=== PATIENT | female | born 1945 | race Caucasian/White ===

== ENCOUNTER → 2016-11-28 | Outpatient (CLI) | payer MEDICARE, BC ==
[2016-11-28 12:20] LABS: Basophils # (A) 0.2 k/uL (0-0.2); Basophils % (A) 2 %; CH 31.7; CHCM 32.8; Eosinophils # (A) 0.2 k/uL (0-0.7); Eosinophils % (A) 3 %; HCT 48.5 % (34.0-46.0); HDW 2.26; HGB 16.1 gm/dL (11.4-16.0); Luc # (Auto) 0.15; Luc % (Auto) 2; Lymphocytes # (A) 2.5 k/uL (1.0-4.8); Lymphocytes % (A) 30 %; MCH 32.3 pg (25.0-35.0); MCHC 33.3 g/dL (31.0-37.0); MCV 97.1 fL (80.0-100.0); Mean Platelet Volume 7.3; Monocytes # (A) 0.5 k/uL (0-1.0); Monocytes % (A) 6 %; Neutrophils # (A) 4.9 k/uL (1.3-7.7); Neutrophils % (A) 58 %; RDW 13.4 % (11.5-15.5); WBC 8.4 k/uL (3.8-10.6); WBC (Perox) 8.02
[2016-11-28 13:27] LABS: Erythrocyte Sedimentation Rate 4 mm/hr (0-20)
[2016-11-28 14:28] LABS: ALT 32 U/L (9-52); AST 28 U/L (14-36); Alkaline Phosphatase 72 U/L (38-126); Anion Gap 12 mmol/L; Blood Urea Nitrogen 18 mg/dL (7-17); Calcium 10.4 mg/dL (8.4-10.2); Carbon Dioxide 29 mmol/L (22-30); Chloride 101 mmol/L (98-107); Creatine Kinase <20 U/L (30-135); Glucose 101 mg/dL (74-99); Non-African American GFR(MDRD) >60 (>60 ml/min/1.73 sqM); Sodium 142 mmol/L (137-145); Total Bilirubin 0.7 mg/dL (0.2-1.3); Total Protein 7.3 g/dL (6.3-8.2)
[2016-11-28 15:26] LABS: Vitamin B12 >1000 pg/mL
[2016-11-30 05:27] LABS: Aldolase 3.2 U/L (1.2-7.6)
== END | disposition home or self-care (01) ==
LOC: LABWHC1 12:00
PROVIDERS: ATTEND Internal Medicine
DX: M60.9 Myositis, unspecified (principal); M62.81 Muscle weakness (generalized)
CPT/HCPCS: 36415; 80053; 82085; 82550; 82607; 83516; 84439; 84443; 85025; 85652; 86038; 99213

== ENCOUNTER → 2018-05-11 | Outpatient (CLI) | payer MEDICARE, BC ==
--- NOTE | 2018-05-12 21:31 | MR ---
EXAMINATION TYPE: MR lumbar spine wo con DATE OF EXAM: 05/11/2018 COMPARISON: Prior MRI lumbar spine February 23, 2010. Outside lumbar spine x-ray April 15, 2018 HISTORY: Low back pain per order. Left-sided pain since November going into left buttocks per patient. TECHNIQUE: Multiplanar, multisequence imaging of the lumbar spine is performed without IV contrast. FINDINGS: Survey images redemonstrate levoconvex scoliosis centered at L4 level. Sagittal images of t he lumbar spine show vertebral body heights to remain satisfactory. There is more prominent grade 1 a nterolisthesis L4 on L5 measured roughly 5 mm on sagittal image 7. Multilevel disc desiccation is red emonstrated. There is persistent advanced disc space narrowing L5-S1 level. There is now advanced dis c space narrowing L4-L5 level progressed from prior. There is moderate disc space narrowing L3-L4 lev el with vacuum disc phenomenon also progressed from prior there is new prominent disc herniation effa cing anterior thecal sac at T12-L1 level on sagittal image 8. The conus medullaris is slightly low i n position ending superior L2 level. No abnormal signal is present. Heterogeneous endplate changes ar e seen. Pneumothorax type I degenerative changes T12-L1 level are present. Axial images at the labeled T12-L1 level which shows left paracentral disc extrusion seen best sagitt al image 9 effacing anterolateral thecal sac on background of moderate broad disc bulge. Advanced lef t-sided neural foraminal narrowing is seen sagittal image 5 and axial image 28 due to additional fora joao protrusion component. Right-sided neural foramen is patent. Axial images at the L1-L2 and the L2-L3 levels show [id number] facet degenerative changes bilat erally but the spinal canal is preserved and the bilateral neuroforamina are patent. Axial images at the L3-L4 level shows moderate facet degenerative changes and ligament flavum hypertr ophy effacing posterior lateral thecal sac. There is moderate broad-based disc bulge effacing the ant erior thecal sac. There is moderate right greater than left bilateral neural foraminal narrowing. Fin dings are more prominent from prior MRI. Axial images at the L4-L5 level show advanced facet degenerative changes and ligament flavum hypertro phy. There is spondylolisthesis and broad disc bulge causing effacement of the anterior and posterior lateral thecal sac on axial image 8. There is advanced right and [id number] left-sided neural foraminal narrowing with encroachment on right L4 nerve suspected axial image 8. Axial images at the L5-S1 level shows advanced facet degenerative changes bilaterally. There is broad disc bulge identified. Spinal canal is fairly well preserved. Bilateral neural foramina are grossly patent. There is ectasia to the abdominal aorta measuring up to 2.9 cm diameter axial image 12 new from prior . IMPRESSION: Multilevel degenerative changes in lumbar spine as detailed above with progression from 2 010 MRI noted. Attention to T12-L1 level where there is new disc herniation causing advanced left-dioni ed neural foraminal narrowing and effacement of the left T12 nerve. Attention to L4-L5 level where th ere is no spondylolisthesis and increasing degenerative change causing advanced right-sided neural fo raminal narrowing. Further details are noted as discussed above. New near 3.0 cm to the infrarenal ab dominal aorta.
== END | disposition home or self-care (01) ==
LOC: RADMRIMAIN 13:00
PROVIDERS: ATTEND Orthopaedic Surgery
DX: M48.07 Spinal stenosis, lumbosacral region (principal); M99.73 Connective tissue and disc stenosis of intervertebral foramina of lumbar region; M99.72 Connective tissue and disc stenosis of intervertebral foramina of thoracic region; M51.25 Other intervertebral disc displacement, thoracolumbar region; M51.27 Other intervertebral disc displacement, lumbosacral region; M43.16 Spondylolisthesis, lumbar region; M47.817 Spondylosis without myelopathy or radiculopathy, lumbosacral region; M41.86 Other forms of scoliosis, lumbar region
CPT/HCPCS: 72148

== ENCOUNTER → 2018-06-20 | Outpatient (CLI) | payer MEDICARE, BC ==
[2018-06-14 14:20] VITALS: BMI 32.8
[2018-06-20 13:40] VITALS: BP 116/80; PULSE 98; RESP 16
--- NOTE | 2018-06-20 18:30 | P.PAINCN ---
History of Present Illness - Reason for Consult Consult date: 06/20/18 - History of Present Illness This is the initial consultation visit, for this 72 years old female, she start complaining of severe low back pain with radiation towards the left hip area, since 12/06/2017, she reported that the pain started after she was sitting for several hours, then that day she started having this pain, the pain is constant. , Intensity 8-9/10, she denies any motor or sensory deficit, she denies any fever or night sweats she denies any change in the bowel movement or urination Past Medical History Past Medical History: Atrial Fibrillation, COPD, Deep Vein Thrombosis (DVT), GERD/Reflux, Osteoarthritis (OA) Additional Past Medical History / Comment(s): hx- diverticulitis,sciaticae lt History of Any Multi-Drug Resistant Organisms: None Reported Past Surgical History: Bladder Surgery, Bowel Resection, Cardiac Ablation, Heart Catheterization With Stent, Hysterectomy Additional Past Surgical History / Comment(s): bladder suspension, lt knee x2 arthroscopic Past Anesthesia/Blood Transfusion Reactions: No Reported Reaction Date of Last Stent Placement:: 2010 Past Psychological History: Anxiety, Depression Smoking Status: Current every day smoker Past Alcohol Use History: Daily Additional Past Alcohol Use History / Comment(s): smoker off and on since age 11 attempting to quit 5cig/day-current chantix Past Drug Use History: None Reported - Past Family History Mother Family Medical History: No Reported History Sister(s) Family Medical History: Cancer Additional Family Medical History / Comment(s): rectal cancer Medications and Allergies Home Medications Medication Instructions Recorded Confirmed Type Albuterol Inhaler [Ventolin Hfa 1 - 2 puff INHALATION RT-Q6H PRN 06/14/18 History Inhaler] Albuterol Nebulized [Ventolin 2.5 mg INHALATION Q6H 06/14/18 06/14/18 History Nebulized] Ascorbic Acid [Vitamin C] 2,000 mg PO DAILY 06/14/18 06/14/18 History Aspirin [Adult Low Dose Aspirin EC] 81 mg PO DAILY 06/14/18 06/14/18 History Calcium Carbonate/Vitamin D3 1 each PO DAILY 06/14/18 06/14/18 History [Calcium 600-Vit D3 200 Tablet] Cyanocobalamin (Vitamin B-12) 5,000 mcg PO DAILY 06/14/18 06/14/18 History [Vitamin B12] DULoxetine HCL [Cymbalta] 30 mg PO DAILY 06/14/18 06/14/18 History Esomeprazole Magnesium [NexIUM] 20 mg PO DAILY 06/14/18 06/14/18 History LORazepam [Ativan] 0.5 mg PO Q6H PRN 06/14/18 06/14/18 History Methocarbamol [Robaxin] 1,000 mg PO QID 06/14/18 06/14/18 History Metoprolol Tartrate [Lopressor] 25 mg PO BID 06/14/18 06/14/18 History Colby-3 Fatty Acids [Colby-3] 4,000 mg PO DAILY 06/14/18 06/14/18 History Potassium Chloride [K-Tab ER] 20 meq PO DAILY 06/14/18 06/14/18 History Torsemide [Demadex] 20 mg PO DAILY 06/14/18 06/14/18 History Vitamin E (Dl,Tocopheryl Acet) 2 tab PO DAILY 06/14/18 06/14/18 History [Vitamin E] guaiFENesin [Mucinex] 2 tab PO DAILY 06/20/18 06/20/18 History Allergies Allergy/AdvReac Type Severity Reaction Status Date / Time No Known Allergies Allergy Verified 06/20/18 13:22 Physical Exam Vitals: Vital Signs Pulse Resp BP Pulse Ox 06/20/18 13:24 98 16 116/80 93 L Social history : smoker , NO ETOH , NO Illegal drugs use . Review of Systems : 1- Constitutional : no chills , no fever , no night sweats , 2- Ears : no ear discharge , no change in hearing 3-Nose, Mouth ,Throat ; no bleeding gums, no sore throat , no epistaxis , 4-Cardiovascular : Denies chest pain, , no orthopnea , no palpitation 5-Respiratory : Denies cough , no dyspnea , no hemoptysis 6-Gastrointestinal :, no change in bowel habits , no coffee- ground emesis . 7-Genitourinary : No hematuria , no discharge , no incontinence, 8-Musculoskeletal : + gait dysfunction , report low back pain , 9- Neurological : no ataxia , no tremor , no sezure , 10-Psychatric , no suicidal ideation no hallucination 11- Endocrine : no cold intolerence , no polyuria , no polydypsia , 12-Hematologic : no easy bleeding , no easy brusing , 13-Allergic / immunology : no angioedema , no wheezing ,no allergic rhinitis 14-Integumentary : no brttle nails , no change hair / nails , no foot/leg ulcers . Physical Examinations : 1-Constitutional : Cooperative , not in acute distress . 2-HEENT : nech ; supple , no Lymphadenopathy , no Thyromegaly , :eyes , no icterus, no photophobia . ENT : , normal oropharynx , no Thrush 3- Respiratory : Chest clear to auscultations Bilaterally , no wheezing 4- Cardiovascular : regular rate and rhythem , S1 , S2 , no S3 , no S4. 5- Gastrointestinal: abdomen soft no tenderness , no organomegally . 6- Genitourinary : Defferred . 7-Integumentary : No cellulitis , no ulcers , normal skin turgor , no cyanotic . 8- neurologic : Cranial nerve II to XII intact , no focal neurological deffecit 9-psychatric : alert , oriented X 3 , appropriate affect , intact judgment and insight . 10-Lymphatic : no Lymphadenopathy. 11- musculoskeltal: abnormal gait Lumber spine moter stegnth lower extremities ,thigh and legs 5/5 Right side , 5/5 Left side deep tendon reflexes : normal Knee Jerk , normal ankle Jerk lumber facet Loading Test negative on the right side and its slightly positive on the left side Range of motion of the lumbar spine normal. strait leg raising test , negative bilaterally Fabere test negative bilaterally. Sever tenderness over the iliac crest on the left side Results Comments: MRI of the lumbar spine= extensive multilevel lumbar degenerative disc disease and multilevel lumbar facet arthropathy Assessment and Plan Plan: Assessment and plan= 1-left cluneal nerve neuralgia. 2-lumbar degenerative disc disease ,and lumbar facet arthropathy. Clinical examination support that most of the pain is coming from the left cluneal nerve neuralgia, patient will be scheduled to have left cluneal nerve block under fluoroscopy guidance, procedure risk and benefits and alternatives discussed with the patient, Time with Patient: Greater than 30 PQRS Measure Charge Sheet Measure #130: Documentation of Current Meds in Medical Chart: Patient's medications documented in chart Measure #226: Tobacco Use: Screen & Cessation Intervention: Pt screened for tobacco use AND intervention given Measure #111: Pneumonia Vaccination: Pneumococcal vaccine administered or previously received Measure #47: Advance Care Plan: Advance care planning discussed & documented, pt chose/unable to give Measure #412: Opioid Treatment Agreement: No documentation of signed opioid treatment agreement Measure #408: Opioid Therapy Follow-up Evaluation: Patient had NO f/u eval minimum every 3 months during opioid therapy Measure #317: Preventitive Care & Scrn High Bld Press & F/U: Normal blood pressure, f/u not required Measure #128: Body Mass Index (BMI) Screening & Follow-up: BMI documented ABOVE normal parameters - f/u documented Measure #131: Pain Assessment & Follow-up: Pain positive & plan documented, Follow-up scheduled Measure #431: Unhealthy Alcohol Use Preventative Care & Scrn: Patient not identified as an unhealthy alcohol user PQRS Narrative: Smoking Status Current every day smoker Do You Want the Pneumonia Vaccine Up to Date Vaccine AT THIS TIME? Blood Pressure 116/80 Pain Intensity [Left Lower 9 Back] Scale Used Numeric (1 - 10) Hx Alcohol Use (MH) Yes: 5-7 week Home Medications: Ambulatory Orders Albuterol Inhaler [Ventolin Hfa Inhaler] 1 - 2 puff INHALATION RT-Q6H PRN Albuterol Nebulized [Ventolin Nebulized] 2.5 mg INHALATION Q6H 06/14/18 Ascorbic Acid [Vitamin C] 2,000 mg PO DAILY 06/14/18 Aspirin [Adult Low Dose Aspirin EC] 81 mg PO DAILY 06/14/18 Calcium Carbonate/Vitamin D3 [Calcium 600-Vit D3 200 Tablet] 1 each PO DAILY Cyanocobalamin (Vitamin B-12) [Vitamin B12] 5,000 mcg PO DAILY 06/14/18 DULoxetine HCL [Cymbalta] 30 mg PO DAILY 06/14/18 Esomeprazole Magnesium [NexIUM] 20 mg PO DAILY 06/14/18 LORazepam [Ativan] 0.5 mg PO Q6H PRN 06/14/18 Methocarbamol [Robaxin] 1,000 mg PO QID 06/14/18 Metoprolol Tartrate [Lopressor] 25 mg PO BID 06/14/18 Colby-3 Fatty Acids [Colby-3] 4,000 mg PO DAILY 06/14/18 Potassium Chloride [K-Tab ER] 20 meq PO DAILY 06/14/18 Torsemide [Demadex] 20 mg PO DAILY 06/14/18 Vitamin E (Dl,Tocopheryl Acet) [Vitamin E] 2 tab PO DAILY 06/14/18 guaiFENesin [Mucinex] 2 tab PO DAILY 06/20/18
== END | disposition home or self-care (01) ==
LOC: PNWHC3 11:51
PROVIDERS: ATTEND Specialist
DX: M51.36 Other intervertebral disc degeneration, lumbar region (principal); M46.86 Other specified inflammatory spondylopathies, lumbar region; G57.82 Other specified mononeuropathies of left lower limb; I48.91 Unspecified atrial fibrillation; J44.9 Chronic obstructive pulmonary disease, unspecified; I82.409 Acute embolism and thrombosis of unspecified deep veins of unspecified lower extremity; K21.9 Gastro-esophageal reflux disease without esophagitis; M19.90 Unspecified osteoarthritis, unspecified site; F41.9 Anxiety disorder, unspecified; F32.9 Major depressive disorder, single episode, unspecified; F17.200 Nicotine dependence, unspecified, uncomplicated; Z95.5 Presence of coronary angioplasty implant and graft; Z90.710 Acquired absence of both cervix and uterus; Z98.890 Other specified postprocedural states; Z79.51 Long term (current) use of inhaled steroids; Z79.82 Long term (current) use of aspirin; Z79.899 Other long term (current) drug therapy; Z71.6 Tobacco abuse counseling
CPT/HCPCS: 99211

== ENCOUNTER 2018-07-04 06:49 | Day surgery (SDC) | payer MEDICARE, BC ==
[2018-07-02 10:35] VITALS: BMI 32.8
[~2018-07-04 06:49] MED LIST: LACTATED RINGERS 1,000 ML IV SCH
[2018-07-04 07:44] VITALS: TEMP 97.5
[2018-07-04] MEDS ORDERED: LIDOCAINE 1% 20 ML VIAL (10MG/ML) FOR IV START INTRADERMA ONE (08:00)
--- NOTE | 2018-07-04 09:01 | P.PCN ---
Date of Procedure: 07/04/18 Procedure(s) Performed: Procedure= left. Cluneal nerve steroid injection under fluoroscopy guidance Preoperative diagnosis= 1-left cluneal nerve neuralgia. 2-lumbar degenerative disc disease. 3-lumbar spondylosis Postoperative diagnosis= same as preoperative diagnoses . Complication = none Condition= stable Fluoroscopy time = seconds Anesthesia= moderate sedation with intravenous Versed 1 mg , and fentanyl 50 micrograms . Indication for the procedure= patient complaining of low back pain secondary to left cluneal nerve neuralgia and lumbar spondylosis and lumbar degenerative disc disease , and she is here to have left cluneal nerve block Description of the procedure= procedure risk and benefits discussed with the patient, including but not limited, risk of infection and bleeding, and ALLERGIC reaction to the medication and not complete pain relief and patient agreed with the preceding patient taken to the operating room, placed in prone position or standard monitors applied to the patient then after induction of anesthesia back prepped with chlorhexidine 3 times , Then under strict sterile technique, I did the left cluneal nerve block by placing a 22-gauge Quincke Needle advanced slowly under fluoroscopy and placed at the lateral edge of the iliac crest, at the location of the left cluneal nerve, needle placement confirmed with AP and lateral view, then after appropriate needle placement confirmed , then Ropivacaine 0.5% 8 mL, and 40 mg of Kenalog mixed together and injected after negative aspiration patient tolerated the procedure well without any complications , and she will follow up in clinic 3 weeks
[2018-07-04] MEDS ORDERED: IV FLUID CONTINUATION 1,000 ML IV ONE (09:13)
[2018-07-04 09:16] VITALS: RESP 18
--- NOTE | 2018-07-04 09:18 | FL ---
EXAMINATION TYPE: FL guided pain mgmt statistic DATE OF EXAM: 07/04/2018 CLINICAL HISTORY: Back pain TECHNIQUE: Fluoroscopy. COMPARISON: None. FINDINGS/IMPRESSION: Fluoroscopic guidance was provided during procedure performed by Dr. Schneider. A total of 8 seconds of fluoroscopic time was utilized during the procedure and 2 spot images was ac quired demonstrating localization over the iliac bone.
[2018-07-04 09:34] VITALS: BP 115/78; PULSE 78
== END 2018-07-04 09:43 | disposition home or self-care (01) ==
LOC: ORPAIN 06:49
PROVIDERS: ATTEND Specialist
DX: G58.8 Other specified mononeuropathies (principal); M51.36 Other intervertebral disc degeneration, lumbar region; M47.816 Spondylosis without myelopathy or radiculopathy, lumbar region; I48.91 Unspecified atrial fibrillation; J44.9 Chronic obstructive pulmonary disease, unspecified; K21.9 Gastro-esophageal reflux disease without esophagitis; M19.90 Unspecified osteoarthritis, unspecified site; Z86.718 Personal history of other venous thrombosis and embolism; Z95.5 Presence of coronary angioplasty implant and graft; F32.9 Major depressive disorder, single episode, unspecified; F41.9 Anxiety disorder, unspecified; F17.210 Nicotine dependence, cigarettes, uncomplicated; Z79.82 Long term (current) use of aspirin; Z79.899 Other long term (current) drug therapy
CPT/HCPCS: 64450; J2250; J1030; J3010

== ENCOUNTER → 2018-07-18 | Day surgery (SDC) | payer MEDICARE, BC ==
[2018-07-12 09:09] VITALS: BMI 32.8
[~2018-07-18] MED LIST changes: -LACTATED RINGERS 1,000 ML IV SCH; +SODIUM CHLORIDE 0.9% 500 ML 500 ML IV SCH
[2018-07-18 08:30] VITALS: TEMP 97.8
--- NOTE | 2018-07-18 09:34 | P.PCN ---
Date of Procedure: 07/18/18 Surgeon: Christian Alves Pathology: none sent Condition: stable Disposition: PACU Description of Procedure: Procedure= left. Cluneal nerve steroid injection under fluoroscopy guidance Preoperative diagnosis= 1-left cluneal nerve neuralgia. 2-lumbar degenerative disc disease. 3-lumbar spondylosis Postoperative diagnosis= same as preoperative diagnoses . Complication = none Condition= stable Fluoroscopy time = seconds Anesthesia= moderate sedation with intravenous Versed 1 mg , and fentanyl 50 micrograms . Indication for the procedure= patient complaining of low back pain secondary to left cluneal nerve neuralgia and lumbar spondylosis and lumbar degenerative disc disease , and she is here to have left cluneal nerve block Description of the procedure= procedure risk and benefits discussed with the patient, including but not limited, risk of infection and bleeding, and ALLERGIC reaction to the medication and not complete pain relief and patient agreed with the preceding patient taken to the operating room, placed in prone position or standard monitors applied to the patient then after induction of anesthesia back prepped with chlorhexidine , Then under strict sterile technique, I did the left cluneal nerve block by placing a 22-gauge Quincke Needle advanced slowly under fluoroscopy and placed at the lateral edge of the iliac crest, at the location of the left cluneal nerves, needle placement confirmed with AP and lateral view, then after appropriate needle placement confirmed , then Ropivacaine 0.5% 8 mL, and 40 mg of Kenalog mixed together and injected after negative aspiration patient tolerated the procedure well without any complications .
[2018-07-18 09:47] VITALS: RESP 16
[2018-07-18 10:00] VITALS: BP 130/81; PULSE 83
--- NOTE | 2018-07-18 12:19 | FL ---
EXAMINATION TYPE: FL guided pain mgmt statistic DATE OF EXAM: 07/18/2018 HISTORY: Pain DR. JUAREZ SUPERVISED USE OF JAI FOR A LT CLUNEAL NERVE BLOCK 4 SECS FLUORO AND 2 PAPER IMAGES
== END ==
LOC: ORPAIN 07:39
PROVIDERS: ATTEND Anesthesiology
DX: G58.8 Other specified mononeuropathies (principal); M51.36 Other intervertebral disc degeneration, lumbar region; M47.816 Spondylosis without myelopathy or radiculopathy, lumbar region; I48.91 Unspecified atrial fibrillation; J44.9 Chronic obstructive pulmonary disease, unspecified
CPT/HCPCS: 64450; J2250; J3301; J3010

== ENCOUNTER → 2018-08-07 | Outpatient (CLI) | payer MEDICARE, BC ==
[2018-08-07 15:01] VITALS: BP 129/79; PULSE 81; RESP 16
--- NOTE | 2018-08-08 19:59 | P.PN ---
Subjective Progress Note Date: 08/07/18 This is a follow-up visit for this 72 years old female, she start complaining of severe low back pain with radiation toward the left buttock, and she is diagnosed with left cluneal nerve neuralgia, we did today 2 diagnostic Cluneal nerve block, she reported that the pain after the first block and decreased from 9/10 dropped to 0/10 after the first block, and the pain dropped from 5/10- 0/10 after the second diagnostic block , and the pain relief was for a few weeks Physical examination - musculoskeltal: abnormal gait Lumber spine moter stegnth lower extremities ,thigh and legs 5/5 Right side , 5/5 Left side deep tendon reflexes : normal Knee Jerk , normal ankle Jerk lumber facet Loading Test negative on the right side and its slightly positive on the left side Range of motion of the lumbar spine normal. strait leg raising test , negative bilaterally Fabere test negative bilaterally. Sever tenderness over the iliac crest on the left side Results Comments: MRI of the lumbar spine= extensive multilevel lumbar degenerative disc disease and multilevel lumbar facet arthropathy Assessment and Plan Plan: Assessment and plan= 1-left cluneal nerve neuralgia. 2-lumbar degenerative disc disease ,and lumbar facet arthropathy. Clinical examination support that most of the pain is coming from the left cluneal nerve neuralgia, patient had positive response to left cluneal nerve block , she will be good candidate to have radiofrequency ablation of the left cluneal nerve, Procedure risk and benefit and alternatives discussed with the patient she agreed with the preceding - PQRS measures = - Patient's medications are documented in the chart. -Tobacco use is negative and counseling.Given. -Patient's has received pneumococcal vaccine. -Advanced care planning discussed, patient not eligible. -Opiate contract not signed., Patient does not receive any opioid from [facility] pain clinic -Pain positive and follow-up visit/procedure is scheduled. -Patient's blood pressure measured [129/79 ] , and documented in the record ,and patient will follow up with the primary care. -Patient's weight was measured and body mass index [ 32.7] above the, within the normal limits and counseling was done. and patient instructed to follow-up with the primary care physician. -Patient was not identified as an unhealthy alcohol user Objective - Vital Signs Vital signs: Vital Signs Temp Pulse 81 08/07/18 14:52 Resp 16 08/07/18 14:52 BP 129/79 08/07/18 14:52 Pulse Ox 94 L 08/07/18 14:52
== END | disposition home or self-care (01) ==
LOC: PNWHC3 14:00
PROVIDERS: ATTEND Specialist
DX: M51.36 Other intervertebral disc degeneration, lumbar region (principal); M46.86 Other specified inflammatory spondylopathies, lumbar region; G58.8 Other specified mononeuropathies
CPT/HCPCS: 99211

== ENCOUNTER 2018-08-26 07:09 | Day surgery (SDC) | payer MEDICARE, BC ==
[2018-08-21 15:40] VITALS: BMI 32.8
[2018-08-26 07:41] VITALS: RESP 18; TEMP 97.3
[2018-08-26] MEDS ORDERED: LACTATED RINGERS 1,000 ML IV ONE (07:55)
--- NOTE | 2018-08-26 08:44 | P.PCN ---
Date of Procedure: 08/26/18 Preoperative Diagnosis: Cluneal neuropathy Postoperative Diagnosis: same Procedure(s) Performed: Left Cluneal nerve RFA Anesthesia: MAC Surgeon: Shoaib Rocha Description of Procedure: PREOPERATIVE DIAGNOSIS: Cluneal nerve neuropathy POSTOPERATIVE DIAGNOSIS: Same PROCEDURE 1. Left cluneal nerve radiofrequency ablation ANESTHESIA: Conscious sedation with 1 mg of Versed and 50 g of fentanyl EBL: Minimal PROCEDURE INDICATION: The patient with low back pain on the left side with excellent relief after cluneal nerve injections x 2. . PROCEDURE DESCRIPTION / TECHNIQUE: Patient was placed in the prone position. The left flank was cleaned with Betadine 3. Proper sterile techniques were used. Left iliac crest was identified under fluoroscopic guidance. 1% lidocaine was used to infiltrate the subcutaneous tissue and the skin total of 10 mL were used. 3 20-gauge 100 mm radiofrequency needles were placed and identified on fluoroscopy to be touching the superior iliac crest. After anesthetizing the iliac crest with 1% lidocaine 5 mL's attempts were advanced and walked off the bone and placed to be right beyond the tip of the iliac crest. After confirmation of negative aspiration and confirming that the tips were infected along the bone. 1 mL of 0.5% bupivacaine were placed at each level. After negative motor testing was done at 2.5 Hz removed on to lesioning. At that point we began to lesion the area at 80C for 90 seconds. The needles were turned 90 and the lesion was repeated. Second lesion was performed along the medial border of the iliac crest. the same specifications for the lesion were performed to the medial border of the iliac crest. COMPLICATIONS: None DISPOSITION / PLANS: The patient was placed in a supine position and transferred to the recovery area in a stable condition for observation. There was no evidence of lower extremity motor or sensory deficit after the procedure. Patient was discharged from the recovery room after meeting discharge criteria. Home discharge instructions were given to the patient by the staff. The patient was reexamined prior to discharge. The patient will schedule a follow up in the clinic in 2-4 weeks.
--- NOTE | 2018-08-26 08:58 | FL ---
EXAMINATION TYPE: FL guided pain mgmt statistic DATE OF EXAM: 08/26/2018 HISTORY: Flouroscopy time 6 seconds of fluoroscopy provided. IMPRESSION: 1. Fluoroscopy time.
[2018-08-26] MEDS ORDERED: IV FLUID CONTINUATION 550 ML IV ONE (09:00)
[2018-08-26 09:09] VITALS: BP 127/72; PULSE 78
== END 2018-08-26 09:35 | disposition home or self-care (01) ==
LOC: ORPAIN 07:09
PROVIDERS: ATTEND Hospitalist
DX: G62.9 Polyneuropathy, unspecified (principal)
CPT/HCPCS: 64640; J2250; J2001; J3010; 99152

== ENCOUNTER 2018-08-29 10:27 | Day surgery (SDC) | payer MEDICARE, BC ==
[2018-08-21 15:57] VITALS: BMI 32.8
[~2018-08-29 10:27] MED LIST changes: +ALPRAZolam 0.25 MG TAB PO PRN; +ASPIRIN 325 MG TAB PO ONE; +ATORVASTATIN 80 MG TAB PO STA; +SODIUM CHLORIDE 0.9% 1,000 ML in EMPTY BAG 1 BAG IV ONE; -SODIUM CHLORIDE 0.9% 500 ML 500 ML IV SCH
[2018-08-29 10:56] VITALS: TEMP 97.6
[2018-08-29] MEDS ORDERED: MIDAZOLAM 2 MG/2 ML VIAL ONE (12:27)
[2018-08-29] MEDS ORDERED: LIDOCAINE 1% INJ 10MG/ML (20 ML MDV) ONE (12:27)
[2018-08-29] MEDS ORDERED: VERAPAMIL 2.5 MG/ML 2 ML AMP ONE (12:27)
[2018-08-29] MEDS ORDERED: HEPARIN SODIUM 1,000 UN/ML (10ML VL) ONE (12:28)
[2018-08-29] MEDS ORDERED: fentaNYL (PF) 50 MCG/ML 2 ML AMP ONE (12:28)
[2018-08-29] MEDS ORDERED: fentaNYL (PF) 50 MCG/ML 2 ML AMP IVP ONE (12:30)
[2018-08-29] MEDS: MIDAZOLAM 2 MG/2 ML VIAL IVP ONE ×2 (12:30→12:41)
[2018-08-29] MEDS ORDERED: LIDOCAINE 1% (PF) 10MG/ML VIAL SQ ONE (12:31)
[2018-08-29] MEDS: VERAPAMIL SYRINGE (5 MG/10 ML) INTRAARTER ONE ×2 (12:35→12:43)
[2018-08-29] MEDS ORDERED: HEPARIN SODIUM 1,000 UN/ML (10ML VL) IV ONE (12:36)
[2018-08-29] MEDS ORDERED: IOPAMIDOL-370 125ML BTL INJ ONE (12:43)
[2018-08-29] MEDS ORDERED: RX INFO: IV CONTRAST WAS GIVEN 1 EACH MISC MISCELLANE PRN (12:51)
[2018-08-29] MEDS ORDERED: SODIUM CHLORIDE 0.9% 1,000 ML IV SCH (13:00)
--- NOTE | 2018-08-29 13:22 | LTR ---
August 29, 2018 Re: Amada Brady Dear Shoaib: Ms. 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 I want to thank you for allowing me to participate in her care and please do not hesitate to call if you have any question or concern. Sincerely, MD STEVEN Gonzalez / ALIVIA: [phone] /
--- NOTE | 2018-08-29 14:14 | CC ---
CARDIAC CATHETERIZATION REPORT DATE OF SERVICE: 08/29/2018. PERFORMING PHYSICIAN: Jesus Manuel Cook MD. PROCEDURE PERFORMED: 1. Selective right and left coronary angiogram. 2. Left heart catheterization. INDICATION: This is a pleasant 72-year-old female patient with known history of coronary artery disease and prior stenting of the right coronary artery in 2010, as well as hypertension and dyslipidemia presented to the hospital was experiencing exertional dyspnea concerning for angina. She underwent a myocardial perfusion imaging stress test and that revealed anterior ischemia. Because of that, heart catheterization was advised. APPROACH: Right radial artery. COMPLICATION: None. LEVEL OF SEDATION: Moderate with sedation length of 19 minutes. PROCEDURE DESCRIPTION: After obtaining an informed consent, the patient was brought to the cardiac laborer yard. The right radial artery was cannulated using micropuncture technique and a micropuncture wire passed easily, then I placed a 5-Czech in the right radial artery. After that, I gave the patient 2 mg of verapamil IA and 8000 units of heparin IV. Selective right and left coronary angiogram performed using JR4 and JL3.5 catheters. Left heart catheterization was performed using 5-Czech pigtail catheter. The procedure was completed without any complication. SELECTIVE CORONARY ANGIOGRAM: 1. The right coronary artery is a large caliber vessel. It is a dominant vessel. The proximal RCA is angiographically normal. The mid RCA is stented and the stent is patent. The RCA distally appeared to be normal and bifurcates into PDA and PLV branches both are angiographically normal. 2. The left main is angiographically normal. It bifurcates into the circumflex and left anterior descending artery. 3. The left circumflex is a large caliber vessel. It is a nondominant vessel with the proximal circumflex is normal and gives rise into a large OM branch which bifurcates into two separate branches. The first OM branch is angiographically normal. The circumflex continued after that as a small-caliber vessel in the AV groove. 4. The LAD: The proximal LAD appeared to be angiographically normal. It gives rise into a large diagonal branch which appears to be angiographically normal. The mid LAD appeared to have mild disease only and the LAD distally appeared to be angiographically normal and becomes a small caliber vessel and reached the apex. HEMODYNAMICS: The left ventricular end-diastolic pressure was about 12 mmHg and no gradient was identified across the aortic valve. CONCLUSION: 1. Patent stent in the mid right coronary artery. 2. Mild disease involving the left coronary system. POSTPROCEDURE MANAGEMENT: 1. Medical treatment. 2. Risk factor modifications. 3. Follow up with the patient. STEVEN / ALIVIA: [id number] /
[2018-08-29 14:17] VITALS: RESP 18
[2018-08-29 14:46] VITALS: BP 125/67; PULSE 85
== END 2018-08-29 17:52 | disposition home or self-care (01) ==
LOC: CATHCVL 10:27
PROVIDERS: ATTEND Internal Medicine Interventional Cardiology
DX: I25.110 Atherosclerotic heart disease of native coronary artery with unstable angina pectoris (principal); I10 Essential (primary) hypertension; J44.9 Chronic obstructive pulmonary disease, unspecified; E78.5 Hyperlipidemia, unspecified; E78.00 Pure hypercholesterolemia, unspecified; Z79.82 Long term (current) use of aspirin; Z79.899 Other long term (current) drug therapy; Z82.49 Family history of ischemic heart disease and other diseases of the circulatory system; Z95.5 Presence of coronary angioplasty implant and graft; Z72.0 Tobacco use
CPT/HCPCS: 93458; C1769 ×2; C1894; J2250; J3010; J1644; J2001; Q9967

== ENCOUNTER → 2018-10-10 | Outpatient (CLI) | payer MEDICARE, BC ==
[2018-10-10 12:52] VITALS: BP 121/73; PULSE 79; RESP 16
--- NOTE | 2018-10-10 13:50 | P.PN ---
Subjective Progress Note Date: 10/10/18 This is the initial consultation visit, for this 72 years old female, she start complaining of severe low back pain with radiation towards the left hip area,, she day) left cluneal neuralgia , and lumbar degenerative disc disease and lumbar spondylosis with lumbar facet arthropathy , previously we have done a left cluneal nerve block which was successful later on was followed with radiofrequency ablation of the left cluneal nerve , patient had some improvement in her pain level but she continued to have severe left side low back pain that radiated towards the left left hip area and iliac crest ,denies any motor or sensory deficit, she denies any fever or night sweats she denies any change in the bowel movement or urination Physical Examinations : 1-Constitutional : Cooperative , not in acute distress . 2-HEENT : nech ; supple , no Lymphadenopathy , no Thyromegaly , :eyes , no icterus, no photophobia . ENT : , normal oropharynx , no Thrush 3- Respiratory : Chest clear to auscultations Bilaterally , no wheezing 4- Cardiovascular : regular rate and rhythem , S1 , S2 , no S3 , no S4. 5- Gastrointestinal: abdomen soft no tenderness , no organomegally . 6- Genitourinary : Defferred . 7-Integumentary : No cellulitis , no ulcers , normal skin turgor , no cyanotic . 8- neurologic : Cranial nerve II to XII intact , no focal neurological deffecit 9-psychatric : alert , oriented X 3 , appropriate affect , intact judgment and insight . 10-Lymphatic : no Lymphadenopathy. 11- musculoskeltal: abnormal gait Lumber spine moter stegnth lower extremities ,thigh and legs 5/5 Right side , 5/5 Left side deep tendon reflexes : normal Knee Jerk , normal ankle Jerk lumber facet Loading Test negative on the right side and positive on the left side Range of motion of the lumbar spine normal. strait leg raising test , negative bilaterally Fabere test negative bilaterally. Sever tenderness over the iliac crest on the left side Results Comments: MRI of the lumbar spine= extensive multilevel lumbar degenerative disc disease and multilevel lumbar facet arthropathy Assessment and Plan Plan: Assessment and plan= 1-left cluneal nerve neuralgia. 2-lumbar degenerative disc disease ,and lumbar facet arthropathy. Patient improved after the left side cluneal nerve radiofrequency but she continued to have left-sided low back pain with radiation to the left hip , patient will be good candidate to have left side medial branch block lumbar area at L3-4 /L4 5/L5-S1 x2 , and if she had a good result, then we will proceed with a radiofrequency ablation of the left side medial branch PQRS Measure Charge Sheet Measure #130: Documentation of Current Meds in Medical Chart: Patient's medications documented in chart Measure #226: Tobacco Use: Screen & Cessation Intervention: Pt screened for tobacco use AND intervention given Measure #111: Pneumonia Vaccination: Pneumococcal vaccine administered or previously received Measure #47: Advance Care Plan: Advance care planning discussed & documented, pt chose/unable to give Measure #412: Opioid Treatment Agreement: No documentation of signed opioid treatment agreement Measure #408: Opioid Therapy Follow-up Evaluation: Patient had NO f/u eval minimum every 3 months during opioid therapy Measure #317: Preventitive Care & Scrn High Bld Press & F/U: Normal blood pressure, f/u not required Measure #128: Body Mass Index (BMI) Screening & Follow-up: BMI documented ABOVE normal parameters - f/u documented Measure #131: Pain Assessment & Follow-up: Pain positive & plan documented, Follow-up scheduled Measure #431: Unhealthy Alcohol Use Preventative Care & Scrn: Patient not identified as an unhealthy alcohol user PQRS Narrative: Objective - Vital Signs Vital signs: Vital Signs Temp Pulse 79 10/10/18 12:40 Resp 16 10/10/18 12:40 BP 121/73 10/10/18 12:40 Pulse Ox 95 10/10/18 12:40 Intake & Output 10/09/18 10/10/18 10/10/18 18:59 06:59 18:59 Weight 78.925 kg
== END ==
LOC: PNWHC3 12:22
PROVIDERS: ATTEND Specialist
DX: G58.8 Other specified mononeuropathies (principal); M51.36 Other intervertebral disc degeneration, lumbar region; M46.96 Unspecified inflammatory spondylopathy, lumbar region
CPT/HCPCS: 99211

== ENCOUNTER 2018-10-29 08:49 | Day surgery (SDC) | payer MEDICARE, BC ==
[2018-10-25 11:49] VITALS: BMI 32.8
[~2018-10-29 08:49] MED LIST changes: -ALPRAZolam 0.25 MG TAB PO PRN; -ASPIRIN 325 MG TAB PO ONE; -ATORVASTATIN 80 MG TAB PO STA; -SODIUM CHLORIDE 0.9% 1,000 ML in EMPTY BAG 1 BAG IV ONE; +SODIUM CHLORIDE 0.9% 500 ML 500 ML IV SCH
[2018-10-29 09:15] VITALS: RESP 16; TEMP 97.6
[2018-10-29] MEDS ORDERED: LACTATED RINGERS 1,000 ML IV ONE (09:24)
[2018-10-29] MEDS ORDERED: LIDOCAINE 1% 20 ML VIAL (10MG/ML) FOR IV START INTRADERMA ONE (09:25)
--- NOTE | 2018-10-29 10:08 | P.PCN ---
Date of Procedure: 10/29/18 Procedure(s) Performed: PREOPERATIVE DIAGNOSIS : 1- Lumbar spondylosis with Facet Arthropathy without myelopathy . 2- Lumber degenerative disc disease POSTOPERATIVE DIAGNOSIS: 1- Lumbar spondylosis with Facet Arthropathy without myelopathy . 2- Lumber degenerative disc disease PROCEDURE: Diagnostic Left L3 -4 , L4 -5 , and L5-S1 medial branch block under fluoroscopy ANESTHESIA: Local with Ropivacain 0.5 % 3 ml , moderate sedation with intravenous Versed 2 mg and Fentanyl 50 mcg. EBL: Minimal COMPLICATION: None. IV FLUIDS: 100 mL of normal saline. PROCEDURE INDICATION: Chronic low back pain secondary to Facet arthropathy unresponsive to conservative treatment. PROCEDURE DESCRIPTION: the patient was seen and identified in the preop holding area , risks and benefits and possible complications of the procedure and alternative were discussed with the patient, and the patient agreed to proceed with the procedure and signed the consent IV was started and vital signs monitored during the procedure and fluoroscopy was used to maximize the benefit and accuracy of the needle placement, and sedation was given to decrease patient anxiety, patient was taken to the procedure room and placed in prone position vital signs monitored in the back prepped with chlorhexidine X3 then under strict sterile technique using a right oblique fluoroscopy ,the junction of the transverse process and the superior articulating process of the left L3- 4 , L4- 5, and L5-S1 vertebra which corresponding to the fluoroscopy image of the eye of the Jeremias dog on the block side for the medial branches and subsequently , after local infiltration of skin and subcu tissuies with Ropivacaine 0.5 % , one mL at each level , then 22-gauge Quincke-type needles , 3 needle was used , each one of them placed at the junction of the base of the transverse process and the superior articular process at the appropriate level, and the needle was advanced until the periosteum contacted, needle placement confirmed with AP oblique and lateral view and after appropriate needle placement confirmed, and after negative aspiration for heme and CSF and there was no paresthesia 1-1/2 mL of Ropivacaine 0.5% mixed with 40 mg depo-medrol , then half mL injected at each level after negative aspiration the needle subsequently removed intact. At the end of the procedure and the needles removed and a bandage applied after the skin was cleaned the cleaning solution patient taken to recovery room in stable condition and monitors in the recovery room for 20-30 minutes and discharged home in stable condition after discharge criteria met and patient will follow up with the pain clinic in 2-4 weeks
[2018-10-29] MEDS ORDERED: IV FLUID CONTINUATION 800 ML IV ONE (10:13)
--- NOTE | 2018-10-29 10:28 | FL ---
EXAMINATION TYPE: FL guided pain mgmt statistic DATE OF EXAM: 10/29/2018 HISTORY: Pain 8sec fluoro time,2 images scanned
[2018-10-29 10:32] VITALS: BP 138/71; PULSE 81
== END 2018-10-29 11:04 | disposition home or self-care (01) ==
LOC: ORPAIN 08:49
PROVIDERS: ATTEND Specialist
DX: G89.29 Other chronic pain (principal); M47.816 Spondylosis without myelopathy or radiculopathy, lumbar region; M51.36 Other intervertebral disc degeneration, lumbar region
CPT/HCPCS: 64493; 64494; 64495; J2250; J1030; J3010

== ENCOUNTER 2018-11-12 09:21 | Day surgery (SDC) | payer MEDICARE, BC ==
[2018-11-08 14:37] VITALS: BMI 33.8
[2018-11-12 09:37] VITALS: TEMP 97.8
--- NOTE | 2018-11-12 09:45 | P.PCN ---
Date of Procedure: 11/12/18 Anesthesia: none Description of Procedure: Surgeon: Shoaib Rocha MD. Procedure: Left lumbar Medial Branch Block at L3/4, L4/5, and L5/S1 The patient was seen and examined in the [facility]. Procedure risks and benefits were fully reviewed with the patient. The patient understands this is a diagnostic if local only is used, as will be the case today. The goal of the procedure is to inject medication into the medial branch or small nerves that go into the facet joints. In this way, we can hopefully identify which of these joints, if any, may be contributing to their pain. Informed consent for procedure was obtained. The patient was taken into the office fluoroscopy procedure room and placed prone on the table. A pillow was placed under the abdomen to reduce lumbar lordosis. Vital signs were closely monitored during the procedure. The skin over the area was prepped with Betadine X 3 and draped in usual sterile manner. Sterile technique was observed throughout procedure. Under biplanar fluoroscopic guidance, the target injection area of the L3, L4, L5 and sacral ala, left were targeted. A 25 gauge 31/2 inch spinal needle was then placed at the most medial and superior aspect of the transverse process near the "eye of the Jeremias dog". Aspiration for blood was negative. 1 cc of 0.5% marcaine was injected into the targeted areas separately. [place] were withdrawn intact. No complications were noted during the procedure. The patient tolerated the procedure well. The patient was placed in supine position and transferred to the recovery area for observation and remained stable until discharged home. Home discharge instructions were given to the patient by the staff. We'll move forward with lumbar radiofrequency ablation if she has good response to the test injections..
--- NOTE | 2018-11-12 10:13 | FL ---
EXAMINATION TYPE: FL guided pain mgmt statistic DATE OF EXAM: 11/12/2018 FLUOROSCOPY Fluoroscopy time of 10 seconds was used during left facet block. No image/s document/s the procedure .
[2018-11-12 10:21] VITALS: BP 128/72; PULSE 80; RESP 16
== END 2018-11-12 10:21 | disposition home or self-care (01) ==
LOC: ORPAIN 09:21
PROVIDERS: ATTEND Hospitalist
DX: G58.8 Other specified mononeuropathies (principal); M51.36 Other intervertebral disc degeneration, lumbar region; M47.816 Spondylosis without myelopathy or radiculopathy, lumbar region
CPT/HCPCS: 64493; 64494; 64495; 64635; 64636

== ENCOUNTER → 2018-12-31 | Day surgery (SDC) | payer MEDICARE, BC ==
[~2018-12-31] MED LIST changes: +IV FLUID CONTINUATION 1,000 ML IV ONE; +LACTATED RINGERS 1,000 ML IV SCH; -SODIUM CHLORIDE 0.9% 500 ML 500 ML IV SCH
[2018-12-31 09:31] VITALS: TEMP 97.3
[2018-12-31 09:41] LABS: Glucose,Whole Blood 105 mg/dL (75-99)
--- NOTE | 2018-12-31 10:14 | P.PCN ---
Date of Procedure: 12/31/18 Procedure(s) Performed: PREOPERATIVE DIAGNOSIS: 1-Lumbar Spondylosis with Facet Arthropathy without myelopathy. 2- Lumber degenerative disc disease. POSTOPERATIVE DIAGNOSIS: 1- Lumbar Spondylosis with Facet Arthropathy without myelopathy. 2- Lumber degenerative disc disease. PROCEDURES : Left Radiofrequency thermocoagulation, L3-L4, L4-L5, and L5-S1 medial branch, with fluoroscopic guidance. ANESTHESIA: Moderate sedation with intravenous versed 1 mg and fentaneyl 50 mcg, and local infiltration with Ropivacaine 0.5 % . EBL: Minimal PROCEDURE INDICATION: The patient with low back pain secondary to lumbar facet arthropathy who had more than 50% relief of her pain with previous diagnostic lumbar medial branch block with bupivacaine. PROCEDURE DESCRIPTION / TECHNIQUE: The patient was seen and identified in the preoperative area. Risks, benefits, complications, including but not limited to risk of infection ,bleeding , allergic reactions to the medications and no complete pain releife , and alternatives were discussed with the patient, the patient agreed to proceed with the procedure and signed the consent. IV was started. Vital signs remained stable throughout the procedure. Patient was taken to the OR and time out was completed. The patient was placed i n the prone position on the procedure table. The lumber area was prepped and draped in the usual sterile fashion. . Vital signs were closely monitored during the procedure .IV sedation was used during the procedure to decrease patients anxiety. Using AP and then oblique fluoroscopy, the ``eye of the Jeremias dog corresponding to the connection between the superior and transverse articular processes of left L3, L4, and L5 were identified, marked, and localized with 1% lidocaine. Subsequently, a 18 -xc radiofrequency cannula with a 10-mm active tip was advanced guided by fluoroscopy to each of the``eyes of the Jeremias dog at left L3, L4, and L5. Each site then underwent sensory testing at 50 Hz and 0 to 1 volt and motor testing at 2.5 Hz and 0 to 3 volt with local stimulation, but no radicular symptoms down the legs. Thereafter the left L3-4, L4-5, and L5-S1 sites underwent radiofrequency thermocoagulation at 80 degrees celsius for 90 seconds after injecting 0.5 ml of PF Ropivacaine 1ml, then after the thermocoagulation done , 1 ml of the block solution containing Depo-Medrol 40 mg and 3 ml of Ropivacaine 0.5% was injected at the left L3-4 , L4-5 , and L5-S1, levels after negative aspiration of CSF and blood and with no paresthesias. Cannulas were retracted while injecting lidocaine 1% until the needle is out. At the end of the procedure, the skin was cleansed and bandages were applied. COMPLICATIONS: No acute complications. DISPOSITION / PLANS: The patient was placed in a supine position and transferred to the recovery area in a stable condition for observation and was discharged from the recovery room after meeting discharge criteria. Home discharge instructions given to the patient by the staff. The patient was reexamined prior to discharge. The patient will schedule a follow up in the clinic in 2-4 weeks.
[2018-12-31 10:19] VITALS: RESP 16
--- NOTE | 2018-12-31 10:32 | FL ---
EXAMINATION TYPE: FL guided pain mgmt statistic DATE OF EXAM: 12/31/2018 HISTORY: Flouroscopy time 12 seconds of fluoroscopy provided. IMPRESSION: 1. Fluoroscopy time.
[2018-12-31 10:52] VITALS: BP 122/83; PULSE 73
== END | disposition home or self-care (01) ==
LOC: ORPAIN 08:35
PROVIDERS: ATTEND Specialist
DX: M47.816 Spondylosis without myelopathy or radiculopathy, lumbar region (principal); M51.36 Other intervertebral disc degeneration, lumbar region; J44.9 Chronic obstructive pulmonary disease, unspecified; K21.9 Gastro-esophageal reflux disease without esophagitis
CPT/HCPCS: 64635; 64636 ×2; J2250; J1030; J3010; 99152

== ENCOUNTER → 2019-01-04 | Outpatient (CLI) | payer MEDICARE, BC ==
[2019-01-04 09:36] LABS: Basophils # (A) 0.1 k/uL (0-0.2); Basophils % (A) 1 %; Eosinophils # (A) 0.3 k/uL (0-0.7); Eosinophils % (A) 5 %; HCT 48.3 % (34.0-46.0); HGB 15.2 gm/dL (11.4-16.0); Lymphocytes # (A) 1.8 k/uL (1.0-4.8); Lymphocytes % (A) 28 %; MCH 30.3 pg (25.0-35.0); MCHC 31.4 g/dL (31.0-37.0); MCV 96.2 fL (80.0-100.0); Mean Platelet Volume 6.6; Monocytes # (A) 0.6 k/uL (0-1.0); Monocytes % (A) 9 %; Neutrophils # (A) 3.5 k/uL (1.3-7.7); Neutrophils % (A) 55 %; Platelet Count 331 k/uL (150-450); RBC 5.02 m/uL (3.80-5.40); RDW 14.7 % (11.5-15.5); WBC 6.3 k/uL (3.8-10.6)
[2019-01-04 16:37] LABS: Albumin 3.9 g/dL (3.80-4.90); Albumin/Globulin Ratio 2.05 (1.60-3.17); Anion Gap 10.8 mmol/L (4.00-12.00); Calcium 8.9 mg/dL (8.7-10.3); Carbon Dioxide 27.2 mmol/L (21.6-31.8); Globulin 1.9 g/dL (1.6-3.3); LDL Cholesterol,Calculated 134.6 mg/dL (0.0-131.0); Potassium 4.1 mmol/L (3.5-5.5); Total Bilirubin 0.7 mg/dL (0.2-1.2); Total Protein 5.8 g/dL (6.2-8.2); VLDL Calculation 14.4 mg/dL (5.00-40.00)
[2019-01-04 16:46] LABS: T4, Free (Free Thyroxine) 1.2 ng/dL (0.80-1.80)
== END | disposition home or self-care (01) ==
LOC: LABWHC1 09:04
PROVIDERS: ATTEND Internal Medicine
DX: Z00.00 Encounter for general adult medical examination without abnormal findings (principal); E78.5 Hyperlipidemia, unspecified; I10 Essential (primary) hypertension; E55.9 Vitamin D deficiency, unspecified
CPT/HCPCS: 36415; 80053; 80061; 82306; 84439; 84443; 85025

== ENCOUNTER → 2019-01-15 | Outpatient (CLI) | payer MEDICARE, BC ==
--- NOTE | 2019-01-15 13:20 | P.PAINPG ---
Subjective Progress Note Date: 01/15/19 Principal diagnosis: Lumbar spondylosis, left sacroiliitis This a very pleasant 73-year-old woman with a history of intractable low back pain. She recently underwent radio frequency ablation of the lumbar medial branch nerves. She reports that she still has significant pain and rates her pain as a 4 and scale 0-10. She denies any lumbar radicular components to this. She denies any bowel or bladder dysfunction. She states that her pain is located slightly lowered where the procedure was performed. Objective - Vital Signs Vital signs: Intake & Output 01/14/19 01/15/19 01/15/19 18:59 06:59 18:59 Weight 78.925 kg - Exam General: The patient is alert and oriented. Patient is not sedated Patient answers all question appropriately. Cardiac: Heart is regular in rate and rhythm Respiratory: Clear to auscultation. No audible wheezes. Abdomen: Soft nontender nondistended. Musculoskeletal: Strength is normal bilaterally. Sensation is normal bilaterally. Straight leg raise is negative bilaterally. She is tender to palpation over her left sacroiliac joint. Minimal tenderness to palpation over the facet joints bilaterally. No focal motor deficits. She does have an antalgic gait and uses a cane. Neurological: Reflexes are preserved and symmetric bilaterally. Assessment and Plan (1) Sacroiliitis Current Visit: Yes Status: Acute Code(s): M46.1 - SACROILIITIS, NOT ELSEWHERE CLASSIFIED SNOMED Code(s): 93612729 (2) Spondylosis of lumbar region without myelopathy or radiculopathy Current Visit: Yes Status: Acute Code(s): M47.816 - SPONDYLOSIS W/O MYELOPATHY OR RADICULOPATHY, LUMBAR REGION SNOMED Code(s): 00649571 Plan: Plan of Care 1. Medications: Patient is not being prescribed any medications from this clinic. She will continue to treat her pain with conservative medications. 2. Interventions: We will schedule the patient for a left sacral iliac joint injection. If she responds favorably to this procedure we will repeated and consider radio frequency ablation future. 3. Referrals: None 4. Testing: None 5. Follow-up: Left sacral iliac joint injection PQRS Measure Charge Sheet Measure #130: Documentation of Current Meds in Medical Chart: Patient's medications documented in chart Measure #226: Tobacco Use: Screen & Cessation Intervention: Pt not a tobacco user Measure #111: Pneumonia Vaccination: Pneumococcal vaccine administered or previously received Measure #47: Advance Care Plan: Advance care planning discussed & documented, plan or surrogate given Measure #412: Opioid Treatment Agreement: No documentation of signed opioid treatment agreement Measure #408: Opioid Therapy Follow-up Evaluation: Patient had NO f/u eval minimum every 3 months during opioid therapy Measure #317: Preventitive Care & Scrn High Bld Press & F/U: Pre-hypertensive or hypertensive BP documented, pt will f/u with PCP Measure #128: Body Mass Index (BMI) Screening & Follow-up: BMI documented ABOVE normal parameters - f/u documented Measure #131: Pain Assessment & Follow-up: Pain positive & plan documented Measure #431: Unhealthy Alcohol Use Preventative Care & Scrn: Patient not identified as an unhealthy alcohol user PQRS Narrative: Smoking Status Current every day smoker Hx Alcohol Use (MH) Yes: 5-7 week Home Medications: Ambulatory Orders Albuterol Inhaler [Ventolin Hfa Inhaler] 1 - 2 puff INHALATION RT-Q6H PRN 06/14/18 Albuterol Nebulized [Ventolin Nebulized] 2.5 mg INHALATION Q6H PRN 06/14/18 Ascorbic Acid [Vitamin C] 2,000 mg PO DAILY 06/14/18 Aspirin [Adult Low Dose Aspirin EC] 81 mg PO DAILY 06/14/18 Calcium Carbonate/Vitamin D3 [Calcium 600-Vit D3 200 Tablet] 2 each PO DAILY 06/14/18 Cyanocobalamin (Vitamin B-12) [Vitamin B-12] 5,000 mcg PO DAILY 06/14/18 DULoxetine HCL [Cymbalta] 30 mg PO DAILY 06/14/18 Esomeprazole Magnesium [NexIUM] 20 mg PO DAILY 06/14/18 LORazepam [Ativan] 0.5 mg PO Q6H PRN 06/14/18 Metoprolol Tartrate [Lopressor] 25 mg PO BID 06/14/18 [place]-3 Fatty Acids [[place]-3] 4,000 mg PO DAILY 06/14/18 Potassium Chloride [K-Tab ER] 20 meq PO DAILY 06/14/18 Torsemide [Demadex] 20 mg PO DAILY 06/14/18 Vitamin E (Dl,Tocopheryl Acet) [Vitamin E] 800 units PO DAILY 06/14/18 guaiFENesin [Mucinex] 2 tab PO DAILY 06/20/18 Loratadine [Claritin] 10 mg PO DAILY 07/02/18 Budesonide/Formoterol Fumarate [Symbicort 80-4.5 Mcg Inhaler] 1 puff INHALATION BID 10/25/18 Naproxen Sodium [Aleve] 2 tab PO DAILY PRN 12/16/18 Ergocalciferol (Vitamin D2) [Vitamin D2] 1 tab PO WEEKLY 01/15/19 Controlled Substance Measures - Controlled Substance Measures Is patient prescribed a controlled substance at discharge?: No
[2019-01-15 13:21] VITALS: BP 119/70; PULSE 90; RESP 18
== END ==
LOC: PNWHC3 13:10
PROVIDERS: ATTEND Pain Medicine Pain Medicine
DX: M46.1 Sacroiliitis, not elsewhere classified (principal); M47.816 Spondylosis without myelopathy or radiculopathy, lumbar region; F17.200 Nicotine dependence, unspecified, uncomplicated; Z79.899 Other long term (current) drug therapy; Z79.82 Long term (current) use of aspirin
CPT/HCPCS: 99211

== ENCOUNTER 2019-01-23 08:49 | Day surgery (SDC) | payer MEDICARE, BC ==
[2019-01-21 10:47] VITALS: BMI 33.5
[~2019-01-23 08:49] MED LIST changes: -IV FLUID CONTINUATION 1,000 ML IV ONE
[2019-01-23 09:11] VITALS: TEMP 97.8
[2019-01-23] MEDS ORDERED: LIDOCAINE 1% 20 ML VIAL (10MG/ML) FOR IV START INTRADERMA ONE (09:20)
[2019-01-23 09:28] LABS: Glucose,Whole Blood 94 mg/dL (75-99)
--- NOTE | 2019-01-23 09:42 | P.PCN ---
Date of Procedure: 01/23/19 Surgeon: Christian Alves Pathology: none sent Condition: stable Disposition: PACU Description of Procedure: Preoperative diagnoses= sacroiliac joint dysfunction and sacroiliitis on the l eft side Postoperative diagnoses= same as preoperative diagnosis. Procedure= sacroiliac joint steroid injection under fluoroscopic guidance. Anesthesia= local anesthesia with lidocaine 1% and IV moderate conscious sedation with fentanyl and Versed Estimated blood loss=minimal. Procedure indication= the patient had a history of severe chronic low back pain, diagnosed with sacroiliitis and lumbar sacral facet arthropathy unresponsive to conservative treatment. Procedure description= the patient was seen and identified in the preoperative holding area, risks and benefits and alternative of the procedure and possible complications discussed with the patient, patient signed the consent. an IV was started, and vital signs were monitored and were stable throughout the pro cedure, patient was placed in the prone position or table and the lumbosacral area was prepped and draped with a sterile fashion, vital signs were closely monitored during the procedure.The sacroiliac joint was identified on the AP view of fluoroscopy then the C-arm was tilted to the contralateral oblique position to superimpose the anterior and posterior joint lines on each other and to have a unified joint line with the target point at the inferior one third of this line. I used 22-gauge 3-1/2 inch Quincke spinal needle for this procedure and after getting into the sacroiliac joint I injected 40 mg of Kenalog +2 MLS of Ropivacaine 0.5%. Patient tolerated the procedure well without any complication, The patient returned to supine position after the back was cleaned and a Band- Aid applied, the patient transported to recovery room in stable condition and he was monitored for 30 minutes before he was discharged home and then patient was reexamined before going home and patient was discharged in stable condition.
[2019-01-23] MEDS ORDERED: IV FLUID CONTINUATION 1,000 ML IV ONE (09:58)
[2019-01-23 10:05] VITALS: RESP 16
--- NOTE | 2019-01-23 10:15 | FL ---
Fluoroscopy INDICATION: Pain FINDINGS: Fluoroscopy time: 6 seconds. Images obtained: 1. IMPRESSIONS: 1. Documentation of fluoroscopy.
[2019-01-23 10:18] VITALS: BP 128/81; PULSE 71
== END 2019-01-23 10:27 | disposition home or self-care (01) ==
LOC: ORPAIN 08:49
PROVIDERS: ATTEND Anesthesiology
DX: G89.29 Other chronic pain (principal); M46.1 Sacroiliitis, not elsewhere classified; M53.3 Sacrococcygeal disorders, not elsewhere classified; M46.97 Unspecified inflammatory spondylopathy, lumbosacral region; J44.9 Chronic obstructive pulmonary disease, unspecified; I25.10 Atherosclerotic heart disease of native coronary artery without angina pectoris; Z95.5 Presence of coronary angioplasty implant and graft
CPT/HCPCS: J2250; J3301; J3010; G0260; 27096

== ENCOUNTER 2019-02-06 08:53 | Day surgery (SDC) | payer MEDICARE, BC ==
[2019-02-04 14:31] VITALS: BMI 34.7
[2019-02-06] MEDS ORDERED: LACTATED RINGERS 1,000 ML IV ONE (09:14)
[2019-02-06 09:15] VITALS: TEMP 97.7
--- NOTE | 2019-02-06 09:37 | P.GSHP ---
History of Present Illness H&P Date: 02/06/19 73-year-old female scheduled for left sacral iliac joint injection Physical Exam : CVS: Regular rate and rhythm, no peripheral edema Pulmonary: Nonlabored, no wheezing Plan: We'll do a left sacroiliac joint injection today. Vision had 100% relief with previous injection. We'll schedule for radio frequency ablation of L5, S1 to S3 lateral branches. Past Medical History Past Medical History: Atrial Fibrillation, COPD, Deep Vein Thrombosis (DVT), GERD/Reflux, Osteoarthritis (OA) Additional Past Medical History / Comment(s): hx- diverticulitis, sciatica left side. History of Any Multi-Drug Resistant Organisms: None Reported Past Surgical History: Bladder Surgery, Bowel Resection, Cardiac Ablation, Heart Catheterization, Heart Catheterization With Stent, Hysterectomy Additional Past Surgical History / Comment(s): Bladder suspension, lt knee x2 arthroscopic, PAIN CLINIC PROCEDURES, LB CATARACT, one cardiac stent, bowel resection with colostomy/later reversal Past Anesthesia/Blood Transfusion Reactions: Motion Sickness Date of Last Stent Placement:: 2010 Smoking Status: Current every day smoker - Past Family History Mother Family Medical History: No Reported History Sister(s) Family Medical History: Cancer Additional Family Medical History / Comment(s): rectal cancer Medications and Allergies Home Medications Medication Instructions Recorded Confirmed Type Albuterol Inhaler [Ventolin Hfa 1 - 2 puff INHALATION Q6HR PRN 06/14/18 02/04/19 History Inhaler] Albuterol Nebulized [Ventolin 2.5 mg INHALATION Q6H PRN 06/14/18 02/04/19 History Nebulized] Ascorbic Acid [Vitamin C] 2,000 mg PO DAILY 06/14/18 02/04/19 History Aspirin [Adult Low Dose Aspirin EC] 81 mg PO DAILY 06/14/18 02/06/19 History Cyanocobalamin (Vitamin B-12) 5,000 mcg PO DAILY 06/14/18 02/04/19 History [Vitamin B-12] DULoxetine HCL [Cymbalta] 30 mg PO DAILY 06/14/18 02/04/19 History Esomeprazole Magnesium [NexIUM] 20 mg PO DAILY 06/14/18 02/04/19 History LORazepam [Ativan] 0.5 mg PO Q6H PRN 06/14/18 02/04/19 History Metoprolol Tartrate [Lopressor] 25 mg PO BID 06/14/18 02/04/19 History [place]-3 Fatty Acids [[place]-3] 4,000 mg PO DAILY 06/14/18 02/04/19 History Potassium Chloride [K-Tab ER] 20 meq PO DAILY 06/14/18 02/04/19 History Torsemide [Demadex] 20 mg PO DAILY 06/14/18 02/04/19 History Vitamin E (Dl,Tocopheryl Acet) 800 units PO DAILY 06/14/18 02/04/19 History [Vitamin E] guaiFENesin [Mucinex] 2 tab PO DAILY 06/20/18 02/04/19 History Loratadine [Claritin] 10 mg PO DAILY 07/02/18 02/04/19 History Budesonide/Formoterol Fumarate 2 puff INHALATION BID 10/25/18 02/04/19 History [Symbicort 80-4.5 Mcg Inhaler] Naproxen Sodium [Aleve] 440 mg PO DAILY PRN 12/16/18 02/04/19 History Calcium Carbonate/Vitamin D3 2 each PO DAILY 02/04/19 02/04/19 History [Calcium 600-Vit D3 800 Caplet] Allergies Allergy/AdvReac Type Severity Reaction Status Date / Time ergocalciferol (vitamin D2) Allergy Rash/Hives Verified 02/06/19 09:03 [From Vitamin D2] Surgical - Exam Vital Signs Temp Pulse Resp BP Pulse Ox 97.7 F 86 17 181/92 97 02/06/19 09:14 02/06/19 09:14 02/06/19 09:14 02/06/19 09:14 02/06/19 09:14
--- NOTE | 2019-02-06 09:38 | P.PCN ---
Date of Procedure: 02/06/19 Description of Procedure: Preoperative diagnoses: sacroiliac joint dysfunction and sacroiliitis on the left side Postoperative diagnoses: same as preoperative diagnosis. Procedure= sacroiliac joint steroid injection under fluoroscopic guidance. Anesthesia= local anesthesia with lidocaine 1% and IV moderate conscious sedation with fentanyl and Versed Estimated blood loss=minimal. Procedure indication= the patient had a history of severe chronic low back pain, diagnosed with sacroiliitis and lumbar sacral facet arthropathy unresponsive to conservative treatment. Procedure description= the patient was seen and identified in the preoperative holding area, risks and benefits and alternative of the procedure and possible complications discussed with the patient, patient signed the consent. an IV was started, and vital signs were monitored and were stable throughout the procedure, patient was placed in the prone position or table and the lumbosacral area was prepped and draped with a sterile fashion, vital signs were closely monitored during the procedure.The sacroiliac joint was identified on the AP view of fluoroscopy then the C-arm was tilted to the contralateral oblique position to superimpose the anterior and posterior joint lines on each other and to have a unified joint line with the target point at the inferior one third of this line. I used 25-gauge 3-1/2 inch Quincke spinal needle for this procedure and after getting into the sacroiliac joint I injected 40 mg of Kenalog +2 MLS of Ropivacaine 0.5%. Patient tolerated the procedure well without any complication The patient returned to supine position after the back was cleaned and a Band- Aid applied, the patient transported to recovery room in stable condition and he was monitored for 30 minutes before he was discharged home and then patient was reexamined before going home and patient was discharged in stable condition. Follow up for radio frequency ablation of left L5, S1 S3 lateral branches.
[2019-02-06] MEDS ORDERED: LACTATED RINGERS 1,000 ML IV SCH (09:45)
[2019-02-06 10:03] VITALS: RESP 16
--- NOTE | 2019-02-06 10:12 | FL ---
EXAMINATION TYPE: FL guided pain mgmt statistic DATE OF EXAM: 02/06/2019 FLUOROSCOPY Fluoroscopy time of 4 seconds was used during left SI joint injection. 1 image/s document/s the proc edure.
[2019-02-06 10:14] VITALS: BP 138/90; PULSE 71
== END 2019-02-06 10:25 | disposition home or self-care (01) ==
LOC: ORPAIN 08:53
PROVIDERS: ATTEND Anesthesiology
DX: M46.1 Sacroiliitis, not elsewhere classified (principal); M53.3 Sacrococcygeal disorders, not elsewhere classified; I48.91 Unspecified atrial fibrillation; J44.9 Chronic obstructive pulmonary disease, unspecified; Z86.718 Personal history of other venous thrombosis and embolism; K21.9 Gastro-esophageal reflux disease without esophagitis; M19.90 Unspecified osteoarthritis, unspecified site; Z90.49 Acquired absence of other specified parts of digestive tract; Z95.5 Presence of coronary angioplasty implant and graft; Z90.710 Acquired absence of both cervix and uterus; F17.200 Nicotine dependence, unspecified, uncomplicated; Z79.82 Long term (current) use of aspirin; Z79.51 Long term (current) use of inhaled steroids; Z79.899 Other long term (current) drug therapy; Z88.8 Allergy status to other drugs, medicaments and biological substances
CPT/HCPCS: J2250; J3301; J3010; G0260; 27096

== ENCOUNTER → 2020-05-24 | Outpatient (CLI) | payer MEDICARE, BC ==
[2020-05-24 11:55] LABS: Basophils # (A) 0.2 k/uL (0-0.2); Basophils % (A) 2 %; Eosinophils # (A) 0.2 k/uL (0-0.7); Eosinophils % (A) 2 %; HCT 48.6 % (34.0-46.0); HGB 15.2 gm/dL (11.4-16.0); Hypochromasia Slight; Lymphocytes # (A) 1.3 k/uL (1.0-4.8); Lymphocytes % (A) 13 %; MCH 30.1 pg (25.0-35.0); MCHC 31.2 g/dL (31.0-37.0); MCV 96.4 fL (80.0-100.0); Mean Platelet Volume 6.9; Monocytes # (A) 0.8 k/uL (0-1.0); Monocytes % (A) 8 %; Neutrophils # (A) 7.3 k/uL (1.3-7.7); Neutrophils % (A) 74 %; Platelet Count 555 k/uL (150-450); RBC 5.04 m/uL (3.80-5.40); RDW 13.7 % (11.5-15.5); WBC 9.9 k/uL (3.8-10.6)
[2020-05-24 18:46] LABS: Albumin 3.8 g/dL (3.80-4.90); Albumin/Globulin Ratio 1.52 (1.60-3.17); Anion Gap 10.3 mmol/L (4.00-12.00); BUN/Creat Ratio 26.25 Ratio (12.00-20.00); Calcium 9.9 mg/dL (8.7-10.3); Carbon Dioxide 26.7 mmol/L (21.6-31.8); Chol/HDL Ratio 2.66; Globulin 2.5 g/dL (1.6-3.3); LDL Cholesterol,Calculated 93.4 mg/dL (0.0-131.0); Non-African American GFR(CKD) 71.6 (60.0-200.0); Potassium 4.9 mmol/L (3.5-5.5); Total Bilirubin 0.5 mg/dL (0.3-1.2); Total Protein 6.3 g/dL (6.2-8.2); VLDL Calculation 14.6 mg/dL (5.00-40.00)
[2020-05-24 18:59] LABS: T4, Free (Free Thyroxine) 1.2 ng/dL (0.80-1.80)
== END | disposition home or self-care (01) ==
LOC: LABWHC1 10:34
PROVIDERS: ATTEND Internal Medicine
DX: Z00.00 Encounter for general adult medical examination without abnormal findings (principal); E55.9 Vitamin D deficiency, unspecified; E78.2 Mixed hyperlipidemia; I10 Essential (primary) hypertension
CPT/HCPCS: 36415; 80053; 80061; 82306; 84439; 84443; 85025

== ENCOUNTER → 2021-06-13 | Outpatient (CLI) | payer MEDICARE, BC ==
[2021-06-13 14:52] LABS: Basophils # (A) 0.09 X 10*3/uL (0.00-0.10); Eosinophils # (A) 0.37 X 10*3/uL (0.04-0.35); Eosinophils % (A) 4.2 %; HCT 47.2 % (37.2-46.3); Lymphocytes # (A) 1.63 X 10*3/uL (0.90-5.00); Lymphocytes % (A) 18.5 %; MCH 32.5 pg (27.0-32.0); MCHC 33.9 g/dL (32.0-37.0); MCV 95.9 fL (80.0-97.0); Mean Platelet Volume 9.7 fL (9.5-12.2); Monocytes # (A) 0.96 X 10*3/uL (0.20-1.00); Monocytes % (A) 10.9 %; Neutrophils # (A) 5.71 X 10*3/uL (1.80-7.70); Neutrophils % (A) 64.6 %; Platelet Count 279 X 10*3/uL (140-440); RBC 4.92 X 10*6/uL (4.10-5.20); RDW 15.1 % (11.5-14.5); WBC 8.83 X 10*3/uL (4.50-10.00)
[2021-06-13 15:45] LABS: African American GFR (CKD) 62.9 (60.0-200.0); Albumin 4.1 g/dL (3.80-4.90); Albumin/Globulin Ratio 2.16 (1.60-3.17); Anion Gap 8.2 mmol/L (4.00-12.00); Calcium 9.8 mg/dL (8.7-10.3); Carbon Dioxide 30.8 mmol/L (21.6-31.8); Globulin 1.9 g/dL (1.6-3.3); Non-African American GFR(CKD) 54.3 (60.0-200.0); Potassium 4.3 mmol/L (3.5-5.5); Total Bilirubin 0.5 mg/dL (0.3-1.2)
[2021-06-13 15:46] LABS: Chol/HDL Ratio 2.07; LDL Cholesterol,Calculated 79.8 mg/dL (0.0-131.0); VLDL Calculation 11.2 mg/dL (5.00-40.00)
[2021-06-13 15:55] LABS: T4, Free (Free Thyroxine) 1.2 ng/dL (0.80-1.80)
== END | disposition home or self-care (01) ==
LOC: LABWHC1 08:45
PROVIDERS: ATTEND Internal Medicine
DX: Z00.00 Encounter for general adult medical examination without abnormal findings (principal); I10 Essential (primary) hypertension; E78.5 Hyperlipidemia, unspecified; E55.9 Vitamin D deficiency, unspecified
CPT/HCPCS: 36415; 80053; 80061; 82306; 84439; 84443; 85025

== ENCOUNTER 2022-01-06 07:41 | Inpatient (IN) | payer MEDICARE, BC ==
[2022-01-06] MEDS ORDERED: ONDANSETRON 4 MG/2 ML VIAL IVP STA (08:01)
[2022-01-06] MEDS ORDERED: SODIUM CHLORIDE 0.9% 1,000 ML IV STA ×2 (08:01→11:15)
--- NOTE | 2022-01-06 08:10 | ED ---
Nausea/Vomiting/Diarrhea HPI - General Chief complaint: Nausea/Vomiting/Diarrhea Stated complaint: diarrhea, vomiting Time Seen by Provider: 01/06/22 07:49 Source: patient, EMS, RN notes reviewed Mode of arrival: EMS Limitations: no limitations - History of Present Illness Initial comments: This is a 76-year-old female who presents to the emergency department for vomiting and diarrhea. Diarrhea is described as watery and began 2 weeks ago and has not had any improvement. 3 days ago she began vomiting. She has about 3 episodes of vomiting a day. The vomiting has not been preceded by any nausea. Denies any hematemesis. She has had dark stools, however she has been taking Kaopectate. Denies any fevers, chills, shortness of breath, or chest pain. She has abdominal cramping associated with these symptoms but otherwise no abdominal pain. Denies any sick contacts, new medication, or recent antibiotic use. Denies any recent dietary changes or trying new foods. MD complaint: vomiting, diarrhea Onset/Timin -: week(s) Description of Diarrhea: water Associated Abdominal Pain: Yes Quality: cramping - Related Data Home Medications Medication Instructions Recorded Confirmed Ascorbic Acid [Vitamin C] 2,000 mg PO DAILY 06/14/18 01/06/22 Aspirin [Adult Low Dose Aspirin EC] 81 mg PO DAILY 06/14/18 01/06/22 DULoxetine HCL [Cymbalta] 30 mg PO DAILY 06/14/18 01/06/22 LORazepam [Ativan] 0.5 mg PO Q6H PRN 06/14/18 01/06/22 Metoprolol Tartrate [Lopressor] 25 mg PO BID 06/14/18 01/06/22 [place]-3 Fatty Acids [[place]-3] 1,000 mg PO DAILY 06/14/18 01/06/22 Potassium Chloride [K-Tab ER] 20 meq PO DAILY 06/14/18 01/06/22 Torsemide [Demadex] 20 mg PO DAILY 06/14/18 01/06/22 Vitamin E (Dl,Tocopheryl Acet) 400 units PO DAILY 06/14/18 01/06/22 [Vitamin E (400 Iu = 180 mg)] Naproxen Sodium [Aleve] 440 mg PO Q12H PRN 12/16/18 01/06/22 Albuterol Sulfate [Albuterol 2 puff INHALATION RT-QID PRN 01/06/22 01/06/22 Sulfate Hfa] Budesonide/Formoterol Fumarate 2 puff INHALATION RT-BID 01/06/22 01/06/22 [Symbicort 160-4.5 Mcg Inhaler] Calcium Carbonate/Vitamin D3 1 tab PO DAILY 01/06/22 01/06/22 [Calcium 500-Vit D3 5 Mcg (200 Iu)] Cholecalciferol [Vitamin D3 (25 50 mcg PO DAILY 01/06/22 01/06/22 Mcg = 1000 Iu)] Diphenox-Atrop 2.5-0.025 mg 2 tab PO QID 01/06/22 01/06/22 [Lomotil] Ipratropium-Albuterol Nebulize 3 ml INHALATION RT-QID 01/06/22 01/06/22 [Duoneb 0.5 mg-3 mg/3 ml Soln] Allergies Allergy/AdvReac Type Severity Reaction Status Date / Time ergocalciferol (vitamin D2) Allergy Rash/Hives Verified 01/06/22 13:25 [From Vitamin D2] Review of Systems ROS Statement: Those systems with pertinent positive or pertinent negative responses have been documented in the HPI. ROS Other: All systems not noted in ROS Statement are negative. Constitutional: Denies: fever, chills ENT: Denies: ear pain, throat pain Respiratory: Denies: cough, dyspnea Cardiovascular: Denies: chest pain, palpitations Gastrointestinal: Reports: abdominal pain, vomiting, diarrhea. Denies: nausea, hematemesis, hematochezia Genitourinary: Denies: urgency, dysuria Musculoskeletal: Denies: back pain Skin: Denies: rash Neurological: Denies: headache Past Medical History Past Medical History: Atrial Fibrillation, COPD, Deep Vein Thrombosis (DVT), KANDI D/Reflux, Osteoarthritis (OA) Additional Past Medical History / Comment(s): hx- diverticulitis, sciatica left side. History of Any Multi-Drug Resistant Organisms: None Reported Past Surgical History: Bladder Surgery, Bowel Resection, Cardiac Ablation, Heart Catheterization, Heart Catheterization With Stent, Hysterectomy Additional Past Surgical History / Comment(s): Bladder suspension, lt knee x2 arthroscopic, PAIN CLINIC PROCEDURES, LB CATARACT, one cardiac stent, bowel resection with colostomy/later reversal Past Anesthesia/Blood Transfusion Reactions: Motion Sickness Date of Last Stent Placement:: 2010 Past Psychological History: Anxiety, Depression Past Alcohol Use History: Daily Past Drug Use History: None Reported - Past Family History Sister(s) Family Medical History: Cancer Additional Family Medical History / Comment(s): rectal cancer General Exam Limitations: no limitations General appearance: alert, in no apparent distress Head exam: Present: atraumatic, normocephalic, normal inspection Respiratory exam: Present: normal lung sounds bilaterally, wheezes (diffuse expiratory wheezing). Absent: respiratory distress, rales, rhonchi, stridor GI/Abdominal exam: Present: soft, hyperactive bowel sounds. Absent: distended, tenderness, guarding, rebound, rigid Neurological exam: Present: alert, oriented X3, CN II-XII intact Psychiatric exam: Present: normal affect, normal mood Skin exam: Present: warm, dry, intact, normal color. Absent: rash Course Vital Signs 01/06/22 01/06/22 07:45 11:04 Temperature 98.0 F 97.8 F Pulse Rate 115 H 100 Respiratory 14 12 Rate Blood Pressure 120/92 137/79 O2 Sat by Pulse 95 92 L Oximetry Medical Decision Making - Medical Decision Making This is a 76-year-old female who presents to the emergency department for 2 weeks of diarrhea and 3 days of vomiting. CBC reveals an elevated WBC of 13.7 and toxic vacuolation. Stool culture and C. diff pending. She continues to be tachycardic. Overall states that she feels very weak. She lives with her son and [id number], however she is alone for half of the day while they are at work, and taking care of herself is very difficult. She is very concerned about going home. Given the evident infection, the fact that the patient has persistent weakness, and has difficulty caring for herself, will plan for observation admission. 1g of Flagyl administered. CT scan abd/pelvis ordered per the request of Dr. Argueta This case was discussed in detail with the attending ED physician. Presentation, findings, and treatment plan discussed in detail as well. - Lab Data Result diagrams: 01/06/22 08:25 01/06/22 08:25 Lab Results 01/06/22 01/06/22 01/06/22 Range/Units 08:20 08:25 08:25 WBC 13.7 H (3.8-10.6) k/uL RBC 4.67 (3.80-5.40) m/uL Hgb 14.8 (11.4-16.0) gm/dL Hct 44.6 (34.0-46.0) % MCV 95.5 (80.0-100.0) fL MCH 31.6 (25.0-35.0) pg MCHC 33.1 (31.0-37.0) g/dL RDW 13.5 (11.5-15.5) % Plt Count 499 H (150-450) k/uL MPV 6.8 Neutrophils % (Manual) 61 % Band Neuts % (Manual) 18 % Lymphocytes % (Manual) 6 % Monocytes % (Manual) 15 % Neutrophils # (Manual) 10.80 H (1.3-7.7) k/uL Lymphocytes # (Manual) 0.82 L (1.0-4.8) k/uL Monocytes # (Manual) 2.06 H (0-1.0) k/uL Nucleated RBCs 0 (0-0) /100 WBC Manual Slide Review Performed Toxic Vacuolation Present Sodium 136 L (137-145) mmol/L Potassium 4.1 (3.5-5.1) mmol/L Chloride 105 (98-107) mmol/L Carbon Dioxide 22 (22-30) mmol/L Anion Gap 9 mmol/L BUN 24 H (7-17) mg/dL Creatinine 0.93 (0.52-1.04) mg/dL Est GFR (CKD-EPI)AfAm 69 (>60 ml/min/1.73 sqM) Est GFR (CKD-EPI)NonAf 60 (>60 ml/min/1.73 sqM) Glucose 121 H (74-99) mg/dL Plasma Lactic Acid Eric (0.7-2.0) mmol/L Calcium 8.5 (8.4-10.2) mg/dL Total Bilirubin 0.9 (0.2-1.3) mg/dL AST 29 (14-36) U/L ALT 27 (4-34) U/L Alkaline Phosphatase 131 H (38-126) U/L Troponin I 0.012 (0.000-0.034) ng/mL Total Protein 6.0 L (6.3-8.2) g/dL Albumin 3.0 L (3.5-5.0) g/dL Amylase 32 (30-110) U/L Lipase 22 L (23-300) U/L Coronavirus (PCR) (Not Detectd) Influenza Type A RNA (Not Detectd) Influenza Type B (PCR) (Not Detectd) 01/06/22 01/06/22 01/06/22 Range/Units 08:25 08:25 08:25 WBC (3.8-10.6) k/uL RBC (3.80-5.40) m/uL Hgb (11.4-16.0) gm/dL Hct (34.0-46.0) % MCV (80.0-100.0) fL MCH (25.0-35.0) pg MCHC (31.0-37.0) g/dL RDW (11.5-15.5) % Plt Count (150-450) k/uL MPV Neutrophils % (Manual) % Band Neuts % (Manual) % Lymphocytes % (Manual) % Monocytes % (Manual) % Neutrophils # (Manual) (1.3-7.7) k/uL Lymphocytes # (Manual) (1.0-4.8) k/uL Monocytes # (Manual) (0-1.0) k/uL Nucleated RBCs (0-0) /100 WBC Manual Slide Review Toxic Vacuolation Sodium (137-145) mmol/L Potassium (3.5-5.1) mmol/L Chloride (98-107) mmol/L Carbon Dioxide (22-30) mmol/L Anion Gap mmol/L BUN (7-17) mg/dL Creatinine (0.52-1.04) mg/dL Est GFR (CKD-EPI)AfAm (>60 ml/min/1.73 sqM) Est GFR (CKD-EPI)NonAf (>60 ml/min/1.73 sqM) Glucose (74-99) mg/dL Plasma Lactic Acid Eric 1.6 (0.7-2.0) mmol/L Calcium (8.4-10.2) mg/dL Total Bilirubin (0.2-1.3) mg/dL AST (14-36) U/L ALT (4-34) U/L Alkaline Phosphatase (38-126) U/L Troponin I (0.000-0.034) ng/mL Total Protein (6.3-8.2) g/dL Albumin (3.5-5.0) g/dL Amylase (30-110) U/L Lipase (23-300) U/L Coronavirus (PCR) Not Detected (Not Detectd) Influenza Type A RNA Not Detected (Not Detectd) Influenza Type B (PCR) Not Detected (Not Detectd) - EKG Data EKG shows normal: sinus rhythm Rate: normal EKG Comments: Normal sinus rhythm. Ventricular rate 99 beats per minute, MS interval 173 ms, QRS duration 94 ms, QTC 394 ms. - Radiology Data Radiology results: report reviewed, image reviewed Disposition Clinical Impression: Infectious diarrhea in adult patient Disposition: ADMITTED IP TO THIS HOSP
[2022-01-06] MEDS ORDERED: FAMOTIDINE 20 MG/2 ML VIAL IV STA (08:22)
[2022-01-06 08:41] LABS: HCT 44.6 % (34.0-46.0); HGB 14.8 gm/dL (11.4-16.0); MCH 31.6 pg (25.0-35.0); MCHC 33.1 g/dL (31.0-37.0); MCV 95.5 fL (80.0-100.0); Mean Platelet Volume 6.8; Platelet Count 499 k/uL (150-450); RBC 4.67 m/uL (3.80-5.40); RDW 13.5 % (11.5-15.5); WBC 13.7 k/uL (3.8-10.6)
[2022-01-06 08:45] LABS: Calcium 8.5 mg/dL (8.4-10.2); Potassium 4.1 mmol/L (3.5-5.1); Total Bilirubin 0.9 mg/dL (0.2-1.3)
[2022-01-06 09:08] LABS: Band Neutrophils % 18 %; Lymphocytes # (M) 0.82 k/uL (1.0-4.8); Monocytes # (M) 2.06 k/uL (0-1.0); Neutrophils % (M) 61 %; Nucleated Red Blood Cells 0 /100 WBC (0-0); Total Cells Counted 100; Toxic Vacuolation Present
[2022-01-06] MEDS ORDERED: SALINE IVPB STA (11:16)
[2022-01-06] MEDS ORDERED: METRONIDAZOLE NS PMX IVPB STA (11:16)
[2022-01-06] MEDS ORDERED: NALOXONE 0.4 MG/ML 1 ML VIAL IV PRN (12:27)
[2022-01-06] MEDS ORDERED: HYDROmorphone 0.5 MG/0.5 ML SYRINGE IVP PRN (12:27)
[2022-01-06] MEDS ORDERED: HYDROmorphone 1 MG/ML 1 ML SYRINGE IVP PRN (12:27)
--- NOTE | 2022-01-06 13:04 | CT ---
EXAMINATION TYPE: CT abdomen pelvis w con DATE OF EXAM: 01/06/2022 HISTORY: nausea,vomiting and diarrhea CT DLP: 934.8mGycm Automated Exposure Control for Dose Reduction was Utilized. CONTRAST: CT scan of the abdomen and pelvis is performed with IV Contrast, patient injected with 100 mL of Isov ue 300. COMPARISON: CT abdomen and pelvis October 24, 2013 FINDINGS: LUNG BASES: Tiny posterior left-sided diaphragmatic hernia sagittal image 77 redemonstrated. Coronary artery calcification again seen. LIVER/GB: Approximately 1.2 cm benign-appearing thin-walled cyst in the hepatic dome axial image 7 sl ightly increased in size from prior. Cholecystectomy clips are present. There is new mild to moderate central intrahepatic and mild extra hepatic biliary dilatation up to 13 mm near andrez hepatis hirsch l image 36. Double duct sign and pancreatic head without obstructing mass or calculus clearly seen. A brupt tapering noted sagittal image 65. PANCREAS: No significant abnormality is seen. SPLEEN: No significant abnormality is seen. ADRENALS: No significant abnormality is seen. KIDNEYS: Symmetric cord measuring uptake and excretion without hydronephrosis seen bilaterally. Subce ntimeter benign thin-walled cyst laterally mid to lower pole of the right kidney delayed axial image 29. BOWEL: Suboptimal evaluation without enteric contrast. Stomach poorly distended and thus suboptimally evaluated. No suspicious small or large bowel dilatation is seen. Abnormal fluid in the rectum. UTERUS/ADNEXA: Uterus surgically absent. Scattered bilateral tiny pelvic phleboliths. LYMPH NODES: No greater than 1cm abdominal or pelvic lymph nodes are appreciated. OSSEOUS STRUCTURES: Scoliosis is present. Multilevel vacuum disc phenomenon and disc space narrowing in the mid to lower lumbar spine. OTHER: Focal eventration or ventral wall hernia containing fat and tiny mesenteric vessels in the upp er to mid abdomen above the umbilicus is now present. More inferior hernia contains portion of transv erse colon axial image 32. Moderate to severe plaque of the aorta extends into branch vessels. Ectati c course is seen. There is slight 3.1 cm aneurysm axial image 29. IMPRESSION: 1. No bowel obstruction. Abnormal fluid in the rectum could reflect product of a mild uncomplicated c olitis and/or diarrhea. 2. New mild to moderate biliary dilatation without obstructing calculus or mass clearly seen. Correla te clinically with liver lab values. Consider ERCP follow-up to further evaluate.
[2022-01-06] MEDS: SODIUM CHLORIDE 0.9% 1,000 ML IV SCH (14:00)
[2022-01-06 14:24] LABS: Appearance,Urine Clear (Clear); Bilirubin,Urine Negative (Negative); Blood,Urine Negative (Negative); Color,Urine Yellow; Glucose,Urine (UA) Negative (Negative); Hyaline Casts,Urine 7 /lpf (0-2); Ketones,Urine 1+ (Negative); Leukocyte Esterase,Urine Trace (Negative); Mucus,Urine Rare /hpf; Nitrite,Urine Negative (Negative); Protein,Urine 1+ (Negative); RBC,Urine 1 /hpf (0-5); Squamous Epithelial Cell,Urine 5 /hpf (0-4); Urobilinogen,Urine <2.0 mg/dL (<2.0); WBC,Urine 6 /hpf (0-5)
--- NOTE | 2022-01-06 14:33 | P.HPIM ---
History of Present Illness H&P Date: 01/06/22 Chief Complaint: diarrhea Patient is a 76 yo CF with a hx of Arrhythmia s/p ablation, diverticulitis, COPD and HTN who presented to the ED with complaints of 2 weeks of diarrhea. In the ED she was found to be tachycardiac and had a leukocytosis. CT abd and pelvis showed a dilated pancreatic duct and possible colitis with fluid in the rectum. Patient seen and examined at bedside. Started with diarrhea for 2 weeks. Black stools every 2 hours after taking kayopectate. Dr. Strauss called in a prescription for Lomitil 4 times daily for the last 2 days without relief. She started having vomiting 3-4 days ago. Decreased oral intake. No blood in emetius and stool. C/O intermitted belly cramping. Also noticed sore in her mouth for the last 7 or so. Has been tying salt water rinses. No one at home is sick. No unusual instances when this started. + weakness and tired. No fevers/chills. Colonoscopy 9-10 years ago, hx of colostomy and reversal. Hx of severe constipation. Assessment/plan: Pertinent positives and negatives as discussed in HPI, a complete review of s ystems was performed and all other systems are negative. General: ill appearing, no distress, appears at stated age Derm: warm, dry Head: atraumatic, normocephalic, symmetric Eyes: EOMI, no lid lag, anicteric sclera, pupils equal round reactive to light ENT: Nose and ears atraumatic, no thrush, no pharyngeal erythema Neck: No thyromegaly, no cervical lymphadenopathy, trachea midline, supple Mouth: no lip lesion, mucus membranes dry, oral apthus uler Cardiovascular: S1S2 reg, no murmur, positive posterior tibial pulse bilateral, trace edema, capillary refill less than 2 seconds Lungs: Decreased bs bilateral, no ronchi, no rales, no wheeze, no accessory muscle use Abdominal: soft, nontender to palpation, no guarding, no appreciable organomegaly, normal bowel sounds Ext: no gross muscle atrophy, muscle strength muscle strength 5 out of 5 in all 4 extremities, no contractures Neuro: CN II-XI grossly intact, light touch intact all 4 extremities, finger to nose within normal limits, Psych: Alert, oriented, appropriate affect Assessment/plan: Diarrhea liekly due to colitis vs pancreatic exocrine insufficiency Intractable nausea and vomiting leukocytosis Dehydration Dilated pancreatic duct thrombocytosis - IV fluids - antiemetics - mrcp - surgery consult - cholestyramine - check c diff - stool culture - follow CBC - rocephin and flagyl oral apthus ulcers - cools solution - orajel COPD without exacerbation - bronchodilators HTN - lopressor DVT - hx in the past Active Medications Acetaminophen (Acetaminophen Tab 325 Mg Tab) 650 mg PO Q6HR PRN PRN Reason: Mild Pain or Fever > 100.5 Albuterol Sulfate (Albuterol Hfa Inhaler) 2 puff INHALATION RT-QID PRN PRN Reason: Shortness Of Breath Albuterol/Ipratropium (Ipratropium-Albuterol 3 Ml Neb) 3 ml INHALATION RT-QID [facility] Alprazolam (Alprazolam 0.25 Mg Tab) 0.25 mg PO Q6HR PRN PRN Reason: Anxiety Benzocaine (Benzocaine 20 % Gel 11.9 Gm Tube) 1 applic MM ONCE ONE Stop: 01/06/22 16:16 Budesonide/Formoterol Fumarate (Symbicort 160-4.5 Mcg Inhaler) 2 puff INHALATION RT-BID [facility] Cholestyramine Resin (Cholestyramine (With Sugar) 4 Gm Packet) 4 gm PO TID BETWEEN MEALS [facility] Al Hydroxide/Mg Hydroxide 30 ml/ Acetaminophen 960 mg/Diphenhydramine HCl 75 mg 0 ml PO TID [facility] Diphenoxylate HCl/Atropine (Diphenox-Atrop 2.5-0.025 Mg 1 Each Tab) 2 each PO Q ID [facility] Duloxetine HCl (Duloxetine Hcl 30 Mg Capsule.Dr) 30 mg PO DAILY [facility] Enoxaparin Sodium (Enoxaparin 40 Mg/0.4 Ml Syringe) 40 mg SQ DAILY@1600 [facility] Hydromorphone HCl (Hydromorphone 0.5 Mg/0.5 Ml Syringe) 0.5 mg IVP Q3HR PRN PRN Reason: Moderate Pain Hydromorphone HCl (Hydromorphone 1 Mg/Ml 1 Ml Syringe) 1 mg IVP Q3HR PRN PRN Reason: Severe Pain Sodium Chloride (Saline 0.9%) 1,000 mls @ 75 mls/hr IV .[id number] [facility] Last Admin: 01/06/22 14:00 Dose: 75 mls/hr Documented by: Lorazepam (Lorazepam 0.5 Mg Tab) 0.5 mg PO Q6H PRN PRN Reason: Anxiety Metoprolol Tartrate (Metoprolol Tartrate 25 Mg Tab) 25 mg PO BID S[facility] Naloxone HCl (Naloxone 0.4 Mg/Ml 1 Ml Vial) 0.2 mg IV Q2M PRN PRN Reason: Opioid Reversal Ondansetron HCl (Ondansetron 4 Mg/2 Ml Vial) 4 mg IVP Q8HR PRN PRN Reason: Nausea And Vomiting Past Medical History Past Medical History: COPD, Deep Vein Thrombosis (DVT), GERD/Reflux, Hypertension, Osteoarthritis (OA) Additional Past Medical History / Comment(s): hx- diverticulitis, sciatica left side. History of Any Multi-Drug Resistant Organisms: None Reported Past Surgical History: Bladder Surgery, Bowel Resection, Cardiac Ablation, Cholecystectomy, Heart Catheterization, Heart Catheterization With Stent, Hysterectomy Additional Past Surgical History / Comment(s): Bladder suspension, lt knee x2 arthroscopic, PAIN CLINIC PROCEDURES, LB CATARACT, one cardiac stent, bowel resection with colostomy/later reversal Past Anesthesia/Blood Transfusion Reactions: Motion Sickness Date of Last Stent Placement:: 2010 Past Psychological History: Anxiety, Depression Smoking Status: Former smoker (quit Aug) Past Alcohol Use History: Daily (1-3 beers dailt ) Past Drug Use History: None Reported Additional History: cane at home - Past Family History Sister(s) Family Medical History: Cancer Additional Family Medical History / Comment(s): rectal cancer Medications and Allergies Home Medications Medication Instructions Recorded Confirmed Type Ascorbic Acid [Vitamin C] 2,000 mg PO DAILY 06/14/18 01/06/22 History Aspirin [Adult Low Dose Aspirin EC] 81 mg PO DAILY 06/14/18 01/06/22 History DULoxetine HCL [Cymbalta] 30 mg PO DAILY 06/14/18 01/06/22 History LORazepam [Ativan] 0.5 mg PO Q6H PRN 06/14/18 01/06/22 History Metoprolol Tartrate [Lopressor] 25 mg PO BID 06/14/18 01/06/22 History [place]-3 Fatty Acids [[place]-3] 1,000 mg PO DAILY 06/14/18 01/06/22 History Potassium Chloride [K-Tab ER] 20 meq PO DAILY 06/14/18 01/06/22 History Torsemide [Demadex] 20 mg PO DAILY 06/14/18 01/06/22 History Vitamin E (Dl,Tocopheryl Acet) 400 units PO DAILY 06/14/18 01/06/22 History [Vitamin E (400 Iu = 180 mg)] Naproxen Sodium [Aleve] 440 mg PO Q12H PRN 12/16/18 01/06/22 History Albuterol Sulfate [Albuterol 2 puff INHALATION RT-QID PRN 01/06/22 01/06/22 History Sulfate Hfa] Budesonide/Formoterol Fumarate 2 puff INHALATION RT-BID 01/06/22 01/06/22 History [Symbicort 160-4.5 Mcg Inhaler] Calcium Carbonate/Vitamin D3 1 tab PO DAILY 01/06/22 01/06/22 History [Calcium 500-Vit D3 5 Mcg (200 Iu)] Cholecalciferol [Vitamin D3 (25 50 mcg PO DAILY 01/06/22 01/06/22 History Mcg = 1000 Iu)] Diphenox-Atrop 2.5-0.025 mg 2 tab PO QID 01/06/22 01/06/22 History [Lomotil] Ipratropium-Albuterol Nebulize 3 ml INHALATION RT-QID 01/06/22 01/06/22 History [Duoneb 0.5 mg-3 mg/3 ml Soln] Allergies Allergy/AdvReac Type Severity Reaction Status Date / Time ergocalciferol (vitamin D2) Allergy Rash/Hives Verified 01/06/22 13:25 [From Vitamin D2] Physical Exam Osteopathic Statement: *. No significant issues noted on an osteopathic structural exam other than those noted in the History and Physical/Consult. Vitals: Vital Signs Temp Pulse Resp BP Pulse Ox 01/06/22 13:47 107 H 12 131/72 98 01/06/22 11:04 97.8 F 100 12 137/79 92 L 01/06/22 07:45 98.0 F 115 H 14 120/92 95 Intake and Output 01/05/22 01/06/22 01/06/22 22:59 06:59 14:59 Other: Voiding Method Toilet Weight 70.76 kg Results CBC & Chem 7: 01/06/22 08:25 01/06/22 08:25 Labs: Abnormal Lab Results - Last 24 Hours (Table) 01/06/22 01/06/22 Range/Units 08:25 08:25 WBC 13.7 H (3.8-10.6) k/uL Plt Count 499 H (150-450) k/uL Neutrophils # (Manual) 10.80 H (1.3-7.7) k/uL Lymphocytes # (Manual) 0.82 L (1.0-4.8) k/uL Monocytes # (Manual) 2.06 H (0-1.0) k/uL Sodium 136 L (137-145) mmol/L BUN 24 H (7-17) mg/dL Glucose 121 H (74-99) mg/dL Alkaline Phosphatase 131 H (38-126) U/L Total Protein 6.0 L (6.3-8.2) g/dL Albumin 3.0 L (3.5-5.0) g/dL Lipase 22 L (23-300) U/L
[2022-01-06] MEDS ORDERED: ALPRAZolam 0.25 MG TAB PO PRN (15:48)
[2022-01-06] MEDS ORDERED: ALBUTEROL HFA INHALER INHALATION PRN (15:50)
[2022-01-06] MEDS: IPRATROPIUM-ALBUTEROL 3 ML NEB INHALATION SCH ×2 (16:14→20:14)
[2022-01-06] MEDS ORDERED: BENZOCAINE 20 % GEL 11.9 GM TUBE MM ONE (16:15)
--- NOTE | 2022-01-06 16:46 | P.GSCN ---
History of Present Illness Consult date: 01/06/22 Reason for Consult: Dilated pancreatic duct History of present illness: 76-year-old female came to the hospital with complaints of vomiting and diarrhea. Patient says she has had diarrhea for the last 2 weeks and vomiting for the last 2-3 days. Denies hematemesis. Some dark colored stools but taking Kaopectate. No fevers. Says she has had some abdominal fullness for the last few years and that doesn't feel any different. Patient underwent CT abdomen and pelvis. Films not opening at this time that the dictation shows dilation of marianne th pancreatic duct and common bile duct without pancreatic mass seen. No significant weight loss. No recent travel. No sick contacts. Patient's white blood cell count slightly elevated. History of previous cholecystectomy. Bilirubin ALT and AST are normal, alkaline phosphatase minimally elevated. Review of Systems The patient denies any acute changes in vision or hearing, no dysphagia or odynophagia, no chest pain or shortness of breath, no dysuria or hematuria, no headache, no runny nose, no rectal bleeding or melena, no unexplained weight loss Past Medical History Past Medical History: COPD, Deep Vein Thrombosis (DVT), GERD/Reflux, Hypertension, Osteoarthritis (OA) Additional Past Medical History / Comment(s): hx- diverticulitis, sciatica left side. History of Any Multi-Drug Resistant Organisms: None Reported Past Surgical History: Bladder Surgery, Bowel Resection, Cardiac Ablation, Cholecystectomy, Heart Catheterization, Heart Catheterization With Stent, Hysterectomy Additional Past Surgical History / Comment(s): Bladder suspension, lt knee x2 arthroscopic, PAIN CLINIC PROCEDURES, LB CATARACT, one cardiac stent, bowel resection with colostomy/later reversal Past Anesthesia/Blood Transfusion Reactions: Motion Sickness Date of Last Stent Placement:: 2010 Past Psychological History: Anxiety, Depression Smoking Status: Former smoker (quit Aug) Past Alcohol Use History: Daily (1-3 beers dailt ) Past Drug Use History: None Reported - Past Family History Sister(s) Family Medical History: Cancer Additional Family Medical History / Comment(s): rectal cancer Medications and Allergies Home Medications Medication Instructions Recorded Confirmed Type Ascorbic Acid [Vitamin C] 2,000 mg PO DAILY 06/14/18 01/06/22 History Aspirin [Adult Low Dose Aspirin EC] 81 mg PO DAILY 06/14/18 01/06/22 History DULoxetine HCL [Cymbalta] 30 mg PO DAILY 06/14/18 01/06/22 History LORazepam [Ativan] 0.5 mg PO Q6H PRN 06/14/18 01/06/22 History Metoprolol Tartrate [Lopressor] 25 mg PO BID 06/14/18 01/06/22 History [place]-3 Fatty Acids [[place]-3] 1,000 mg PO DAILY 06/14/18 01/06/22 History Potassium Chloride [K-Tab ER] 20 meq PO DAILY 06/14/18 01/06/22 History Torsemide [Demadex] 20 mg PO DAILY 06/14/18 01/06/22 History Vitamin E (Dl,Tocopheryl Acet) 400 units PO DAILY 06/14/18 01/06/22 History [Vitamin E (400 Iu = 180 mg)] Naproxen Sodium [Aleve] 440 mg PO Q12H PRN 12/16/18 01/06/22 History Albuterol Sulfate [Albuterol 2 puff INHALATION RT-QID PRN 01/06/22 01/06/22 History Sulfate Hfa] Budesonide/Formoterol Fumarate 2 puff INHALATION RT-BID 01/06/22 01/06/22 History [Symbicort 160-4.5 Mcg Inhaler] Calcium Carbonate/Vitamin D3 1 tab PO DAILY 01/06/22 01/06/22 History [Calcium 500-Vit D3 5 Mcg (200 Iu)] Cholecalciferol [Vitamin D3 (25 50 mcg PO DAILY 01/06/22 01/06/22 History Mcg = 1000 Iu)] Diphenox-Atrop 2.5-0.025 mg 2 tab PO QID 01/06/22 01/06/22 History [Lomotil] Ipratropium-Albuterol Nebulize 3 ml INHALATION RT-QID 01/06/22 01/06/22 History [Duoneb 0.5 mg-3 mg/3 ml Soln] Allergies Allergy/AdvReac Type Severity Reaction Status Date / Time ergocalciferol (vitamin D2) Allergy Rash/Hives Verified 01/06/22 13:25 [From Vitamin D2] Surgical - Exam Vital Signs Temp Pulse Resp BP Pulse Ox 98.0 F 115 H 14 120/92 95 01/06/22 07:45 01/06/22 07:45 01/06/22 07:45 01/06/22 07:45 01/06/22 07:45 Physical exam: General: Well-developed, well-nourished HEENT: Normocephalic, sclerae nonicteric Abdomen: Nontender, nondistended Extremities: No edema Neuro: Alert and oriented Results - Labs 01/06/22 08:25 01/06/22 08:25 Abnormal Lab Results - Last 24 Hours (Table) 01/06/22 01/06/22 01/06/22 Range/Units 08:25 08:25 14:07 WBC 13.7 H (3.8-10.6) k/uL Plt Count 499 H (150-450) k/uL Neutrophils # (Manual) 10.80 H (1.3-7.7) k/uL Lymphocytes # (Manual) 0.82 L (1.0-4.8) k/uL Monocytes # (Manual) 2.06 H (0-1.0) k/uL Sodium 136 L (137-145) mmol/L BUN 24 H (7-17) mg/dL Glucose 121 H (74-99) mg/dL Alkaline Phosphatase 131 H (38-126) U/L Total Protein 6.0 L (6.3-8.2) g/dL Albumin 3.0 L (3.5-5.0) g/dL Lipase 22 L (23-300) U/L Ur Specific [place] 1.050 H (1.001-1.035) Urine Protein 1+ H (Negative) Urine Ketones 1+ H (Negative) Ur Leukocyte Esterase Trace H (Negative) Urine WBC 6 H (0-5) /hpf Ur Squamous Epith Cells 5 H (0-4) /hpf Hyaline Casts 7 H (0-2) /lpf Urine Mucus Rare H (None) /hpf Diabetes panel 01/06/22 Range/Units 08:25 Sodium 136 L (137-145) mmol/L Potassium 4.1 (3.5-5.1) mmol/L Chloride 105 (98-107) mmol/L Carbon Dioxide 22 (22-30) mmol/L BUN 24 H (7-17) mg/dL Creatinine 0.93 (0.52-1.04) mg/dL Glucose 121 H (74-99) mg/dL Calcium 8.5 (8.4-10.2) mg/dL AST 29 (14-36) U/L ALT 27 (4-34) U/L Alkaline Phosphatase 131 H (38-126) U/L Total Protein 6.0 L (6.3-8.2) g/dL Albumin 3.0 L (3.5-5.0) g/dL Calcium panel 01/06/22 Range/Units 08:25 Calcium 8.5 (8.4-10.2) mg/dL Albumin 3.0 L (3.5-5.0) g/dL Pituitary panel 01/06/22 Range/Units 08:25 Sodium 136 L (137-145) mmol/L Potassium 4.1 (3.5-5.1) mmol/L Chloride 105 (98-107) mmol/L Carbon Dioxide 22 (22-30) mmol/L BUN 24 H (7-17) mg/dL Creatinine 0.93 (0.52-1.04) mg/dL Glucose 121 H (74-99) mg/dL Calcium 8.5 (8.4-10.2) mg/dL Adrenal panel 01/06/22 Range/Units 08:25 Sodium 136 L (137-145) mmol/L Potassium 4.1 (3.5-5.1) mmol/L Chloride 105 (98-107) mmol/L Carbon Dioxide 22 (22-30) mmol/L BUN 24 H (7-17) mg/dL Creatinine 0.93 (0.52-1.04) mg/dL Glucose 121 H (74-99) mg/dL Calcium 8.5 (8.4-10.2) mg/dL Total Bilirubin 0.9 (0.2-1.3) mg/dL AST 29 (14-36) U/L ALT 27 (4-34) U/L Alkaline Phosphatase 131 H (38-126) U/L Total Protein 6.0 L (6.3-8.2) g/dL Albumin 3.0 L (3.5-5.0) g/dL Assessment and Plan (1) Dilated pancreatic duct Narrative/Plan: 76-year-old female with dilated common bile duct and pancreatic duct post cholecystectomy in the past. We'll review the patient's films with radiology. We'll discuss options of MRCP or observation with patient. Do not suspect this is contributing to the patient's symptoms currently. We'll follow. Current Visit: Yes Status: Acute Code(s): K86.89 - OTHER SPECIFIED DISEASES OF PANCREAS SNOMED Code(s): 496388143
[2022-01-06] MEDS: ENOXAPARIN 40 MG/0.4 ML SYRINGE SQ SCH (16:47)
[2022-01-06] MEDS: ACETAMINOPHEN PO SCH ×6 (16:48→21:25)
[2022-01-06] MEDS: AL HYDROX PO SCH ×6 (16:48→21:25)
[2022-01-06] MEDS: [UNRECOGNIZED DRUG - OTHER] PO SCH ×6 (16:48→21:25)
[2022-01-06] MEDS: MAG HYDROX PO SCH ×6 (16:48→21:25)
[2022-01-06] MEDS: SIMETH PO SCH ×6 (16:48→21:25)
[2022-01-06] MEDS: DIPHENOX-ATROP 2.5-0.025 MG 1 EACH TAB PO SCH ×2 (16:52→21:25)
[2022-01-06] MEDS: CHOLESTYRAMINE (WITH SUGAR) 4 GM PACKET PO SCH (16:53)
[2022-01-06] MEDS: metroNIDAZOLE 500 MG TAB PO SCH ×2 (16:54→21:11)
[2022-01-06] MEDS: SYMBICORT 160-4.5 MCG INHALER INHALATION SCH (20:19)
[2022-01-06] MEDS: LORazepam 0.5 MG TAB PO PRN (21:00)
[2022-01-06] MEDS: METOPROLOL TARTRATE 25 MG TAB PO SCH (21:11)
[2022-01-07] MEDS: SODIUM CHLORIDE 0.9% 1,000 ML IV SCH ×2 (02:33→20:37)
[2022-01-07 06:45] LABS: HCT 39.9 % (34.0-46.0); HGB 12.2 gm/dL (11.4-16.0); Hypochromasia Moderate; MCH 30.8 pg (25.0-35.0); MCHC 30.6 g/dL (31.0-37.0); Mean Platelet Volume 7.1; Platelet Count 375 k/uL (150-450); RBC 3.96 m/uL (3.80-5.40); RDW 13.1 % (11.5-15.5); WBC 13.1 k/uL (3.8-10.6)
[2022-01-07 06:48] LABS: MCV 100.6 fL (80.0-100.0)
[2022-01-07 07:00] LABS: Glucose 95 mg/dL (74-99); Sodium 137 mmol/L (137-145)
[2022-01-07 07:01] LABS: ALT 18 U/L (4-34); African American GFR (CKD) >90 (>60 ml/min/1.73 sqM); Albumin 2.3 g/dL (3.5-5.0); Albumin/Globulin Ratio 0.9; Anion Gap 9 mmol/L; Blood Urea Nitrogen 16 mg/dL (7-17); Calcium 7.8 mg/dL (8.4-10.2); Carbon Dioxide 17 mmol/L (22-30); Chloride 111 mmol/L (98-107); Globulin 2.7 g/dL; Non-African American GFR(CKD) 84 (>60 ml/min/1.73 sqM); Total Bilirubin 0.8 mg/dL (0.2-1.3)
[2022-01-07 07:13] LABS: AST 27 U/L (14-36); Alkaline Phosphatase 72 U/L (38-126); Magnesium 1.8 mg/dL (1.6-2.3); Phosphorus 2.5 mg/dL (2.5-4.5)
[2022-01-07] MEDS: SIMETH PO SCH ×9 (08:06→20:39)
[2022-01-07] MEDS: MAG HYDROX PO SCH ×9 (08:06→20:39)
[2022-01-07] MEDS: [UNRECOGNIZED DRUG - OTHER] PO SCH ×9 (08:06→20:39)
[2022-01-07] MEDS: AL HYDROX PO SCH ×9 (08:06→20:39)
[2022-01-07] MEDS: ACETAMINOPHEN PO SCH ×9 (08:06→20:39)
[2022-01-07] MEDS: metroNIDAZOLE 500 MG TAB PO SCH ×4 (08:06→20:38)
[2022-01-07] MEDS: DULoxetine HCL 30 MG CAPSULE.DR PO SCH (08:06)
[2022-01-07] MEDS: METOPROLOL TARTRATE 25 MG TAB PO SCH ×2 (08:06→20:38)
[2022-01-07] MEDS: DIPHENOX-ATROP 2.5-0.025 MG 1 EACH TAB PO SCH ×3 (08:11→17:50)
[2022-01-07] MEDS: CHOLESTYRAMINE (WITH SUGAR) 4 GM PACKET PO SCH ×3 (08:12→16:26)
[2022-01-07] MEDS: ONDANSETRON 4 MG/2 ML VIAL IVP PRN (08:18)
[2022-01-07] MEDS: SYMBICORT 160-4.5 MCG INHALER INHALATION SCH ×2 (08:58→20:22)
[2022-01-07] MEDS: IPRATROPIUM-ALBUTEROL 3 ML NEB INHALATION SCH ×4 (08:58→20:22)
--- NOTE | 2022-01-07 10:07 | P.PN ---
Subjective Progress Note Date: 01/07/22 Principal diagnosis: Dilated pancreatic duct Patient had episodes of diarrhea. Yesterday they were darker in color than they were this morning. She had dry heaves without vomiting. Labs show improvement and normalization of alkaline phosphatase. MRCP ordered for today. Objective - Vital Signs Vital signs: Vital Signs Temp 98.7 F 01/07/22 07:00 Pulse 86 01/07/22 09:13 Resp 15 01/07/22 07:00 BP 127/75 01/07/22 07:00 Pulse Ox 97 01/07/22 09:03 Intake & Output 01/06/22 01/07/22 01/07/22 18:59 06:59 18:59 Weight 70.76 kg Other: Voiding Method Toilet # Voids 0 - Exam Abdomen: Soft, mild epigastric tenderness, nondistended - Labs CBC & Chem 7: 01/07/22 06:17 01/07/22 06:17 Labs: Abnormal Lab Results - Last 24 Hours (Table) 01/06/22 01/07/22 01/07/22 Range/Units 14:07 06:17 06:17 WBC 13.1 H (3.8-10.6) k/uL MCV 100.6 H D (80.0-100.0) fL MCHC 30.6 L (31.0-37.0) g/dL Chloride 111 H (98-107) mmol/L Carbon Dioxide 17 L (22-30) mmol/L Calcium 7.8 L (8.4-10.2) mg/dL Total Protein 5.0 L (6.3-8.2) g/dL Albumin 2.3 L (3.5-5.0) g/dL Ur Specific [place] 1.050 H (1.001-1.035) Urine Protein 1+ H (Negative) Urine Ketones 1+ H (Negative) Ur Leukocyte Esterase Trace H (Negative) Urine WBC 6 H (0-5) /hpf Ur Squamous Epith Cells 5 H (0-4) /hpf Hyaline Casts 7 H (0-2) /lpf Urine Mucus Rare H (None) /hpf Microbiology - Last 24 Hours (Table) 01/06/22 15:00 Stool Culture - Preliminary Stool Assessment and Plan (1) Dilated pancreatic duct Narrative/Plan: Patient with persistent diarrhea. C. diff is negative. Await final stool cultures. Liver enzymes look normal. MRCP has been ordered. Current Visit: Yes Status: Acute Code(s): K86.89 - OTHER SPECIFIED DISEASES OF PANCREAS SNOMED Code(s): 958688739
--- NOTE | 2022-01-07 12:16 | MR ---
EXAMINATION TYPE: MR pancreas / mrcp wo/w con DATE OF EXAM: 01/07/2022 COMPARISON: CT 01/06/2022 HISTORY: Pancreatic mass Multiplanar, multisequence images of the abdomen were acquired without contrast. Diffusion weighted i maging was performed. Thin and thick slice MRCP imaging performed on independent workstation. FINDINGS: The gallbladder is surgically absent. The common bile duct measures 1.2 cm in maximal dimension. Ther e is narrowing at the level of the ampulla of Vater without obstructing lesion. This may be related t o stricture. Intrahepatic biliary tree is mildly prominent this may be postoperative in nature. There is a cyst at the dome of the liver measuring 1.2 cm. The liver is otherwise homogeneous. The pancreas is free of mass lesion. No pancreatic ductal dilatation appreciated. No peripancreatic l esion seen. The spleen and adrenal glands are within normal limits. Proximal abdominal aortic aneurysm. Renal cystic changes. Fat-containing ventral hernia. IMPRESSION: 1. No pancreatic mass is identified. 2. Cholecystectomy changes with prominence of the intra-Biliary tree. Narrowing at the level of the a mpulla of Vater may reflect stricture.
[2022-01-07] MEDS: PANTOPRAZOLE 40 MG/10 ML VIAL IVP SCH ×2 (15:46→20:39)
[2022-01-07] MEDS: ENOXAPARIN 40 MG/0.4 ML SYRINGE SQ SCH (15:52)
--- NOTE | 2022-01-07 16:38 | P.PN ---
Subjective Progress Note Date: 01/07/22 (delayed charting seen at 1345) Principal diagnosis: diarrhea Patient is a 76 yo CF with a hx of Arrhythmia s/p ablation, diverticulitis, COPD and HTN who presented to the ED with complaints of 2 weeks of diarrhea. In the ED she was found to be tachycardiac and had a leukocytosis. CT abd and pelvis showed a dilated pancreatic duct and possible colitis with fluid in the rectum. She was admitted and started on IV fluids, Rocephin, and Flagyl. Surgery was consulted. Due to her dilated pancreatic MRCP was ordered which showed possible structure of the pancreatic duct but no pancreatic head mass. Her hemoglobin did drop by 2 g the morning after admission. C. diff was negative. Cultures are pending. Patient seen and examined at bedside. 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 She denies any current nausea but states she had nausea and dry heaves last night. She has not been tolerating her clear liquid diet. She is still feeling very tired. She again is asking to stay in the hospital longer because she lives alone. Per nursing stool appeared to be dark black concerns for blind, odor was consistent with melena. General: non toxic, no distress, appears at stated age Derm: warm, dry Head: atraumatic, normocephalic, symmetric Eyes: EOMI, no lid lag, anicteric sclera Mouth: no lip lesion, mucus membranes dry Cardiovascular: S1S2 reg, no murmur, positive posterior tibial pulse bilateral, Lungs: Coarse breath sounds bilateral, no rhonchi, no rales , no accessory muscl e use Abdominal: soft, nontender to palpation, no guarding, no appreciable organomegaly Ext: no gross muscle atrophy, no edema, no contractures Neuro: CN II-XI grossly intact, no focal neuro deficits Psych: Alert, oriented, appropriate affect Assessment/plan: Diarrhea likely due to colitis/ dysentery Positive fecal occult blood Intractable nausea and vomiting leukocytosis Dehydration Pancreatic stricture thrombocytosis, resolved - IV fluids - antiemetics - surgery recs apprecaited - cholestyramine patient was refusing but will encourage to take. - stool culture pending - follow CBC, add Protonix twice a day - rocephin and flagyl oral apthus ulcers - orajel COPD without exacerbation - bronchodilators HTN - lopressor DVT - hx in the past Transition patient to inpatient status due to failed outpatient treatment of colitis with possible GI bleed. Active Medications Generic Name Dose Route Start Last Admin Trade Name Freq PRN Reason Stop Dose Admin Acetaminophen 650 mg 01/06/22 12:27 Acetaminophen Tab 325 Mg Tab PO Q6HR PRN Mild Pain or Fever > 100.5 Albuterol Sulfate 2 puff 01/06/22 15:50 Albuterol Hfa Inhaler INHALATION RT-QID PRN Shortness Of Breath Albuterol/Ipratropium 3 ml 01/06/22 16:00 01/07/22 16:21 Ipratropium-Albuterol 3 Ml Neb INHALATION 3 ml RT-QID S[facility]ITA Administration Alprazolam 0.25 mg 01/06/22 15:48 Alprazolam 0.25 Mg Tab PO Q6HR PRN Anxiety Budesonide/Formoterol Fumarate 2 puff 01/06/22 20:00 01/07/22 08:58 Symbicort 160-4.5 Mcg Inhaler INHALATION 2 puff RT-BID S[facility]ITA Administration Cholestyramine Resin 4 gm 01/06/22 18:00 01/07/22 16:26 Cholestyramine (With Sugar) 4 Gm Packet PO Not Given TID BETWEEN MEALS [facility] Al Hydroxide/Mg Hydroxide 30 0 ml 01/06/22 17:00 01/07/22 16:25 ml/ Acetaminophen 960 mg/ PO Not Given Diphenhydramine HCl 75 mg TID [facility] Diphenoxylate HCl/Atropine 2 each 01/06/22 18:00 01/07/22 13:36 Diphenox-Atrop 2.5-0.025 Mg 1 Each Tab PO Not Given QID [facility] Duloxetine HCl 30 mg 01/07/22 09:00 01/07/22 08:06 Duloxetine Hcl 30 Mg Capsule.Dr PO 30 mg DAILY SAVITA Administration Enoxaparin Sodium 40 mg 01/06/22 16:00 01/07/22 15:52 Enoxaparin 40 Mg/0.4 Ml Syringe SQ 40 mg DAILY@1600 SAVITA Administration Hydromorphone HCl 0.5 mg 01/06/22 12:27 Hydromorphone 0.5 Mg/0.5 Ml Syringe IVP Q3HR PRN Moderate Pain Hydromorphone HCl 1 mg 01/06/22 12:27 Hydromorphone 1 Mg/Ml 1 Ml Syringe IVP Q3HR PRN Severe Pain Sodium Chloride 1,000 mls @ 75 mls/hr 01/06/22 12:30 01/07/22 02:33 Saline 0.9% IV 75 mls/hr .[id number] SAVITA Administration Ceftriaxone Sodium 1 gm/ 50 mls @ 100 mls/hr 01/06/22 21:00 01/07/22 08:05 Sodium Chloride IVPB 100 mls/hr Q12HR SAVITA Administration Protocol Lorazepam 0.5 mg 01/06/22 15:50 01/06/22 21:00 Lorazepam 0.5 Mg Tab PO 0.5 mg Q6H PRN Administration Anxiety Metoprolol Tartrate 25 mg 01/06/22 21:00 01/07/22 08:06 Metoprolol Tartrate 25 Mg Tab PO 25 mg BID SAVITA Administration Metronidazole 500 mg 01/06/22 18:00 01/07/22 15:47 Metronidazole 500 Mg Tab PO 500 mg QID SAVITA Administration Protocol Naloxone HCl 0.2 mg 01/06/22 12:27 Naloxone 0.4 Mg/Ml 1 Ml Vial IV Q2M PRN Opioid Reversal Ondansetron HCl 4 mg 01/06/22 12:27 01/07/22 08:18 Ondansetron 4 Mg/2 Ml Vial IVP 4 mg Q8HR PRN Administration Nausea And Vomiting Pantoprazole Sodium 40 mg 01/07/22 14:00 01/07/22 15:46 Pantoprazole 40 Mg/10 Ml Vial IVP 40 mg BID SAVITA Administration Objective - Vital Signs Vital signs: Vital Signs Temp 98.1 F 01/07/22 14:09 Pulse 84 01/07/22 16:32 Resp 20 01/07/22 14:09 BP 113/54 01/07/22 14:09 Pulse Ox 99 01/07/22 14:09 Intake & Output 01/06/22 01/07/22 01/07/22 18:59 06:59 18:59 Intake Total 240 Balance 240 Weight 70.76 kg Intake: Oral 240 Other: Voiding Method Toilet # Voids 0 # Bowel Movements 3 - Labs CBC & Chem 7: 01/07/22 06:17 01/07/22 06:17 Labs: Abnormal Lab Results - Last 24 Hours (Table) 0401/07/22 01/07/22 Range/Units 15:00 06:17 06:17 WBC 13.1 H (3.8-10.6) k/uL MCV 100.6 H D (80.0-100.0) fL MCHC 30.6 L (31.0-37.0) g/dL Chloride 111 H (98-107) mmol/L Carbon Dioxide 17 L (22-30) mmol/L Calcium 7.8 L (8.4-10.2) mg/dL Total Protein 5.0 L (6.3-8.2) g/dL Albumin 2.3 L (3.5-5.0) g/dL Stool Occult Blood Positive A (Negative) Microbiology - Last 24 Hours (Table) 01/06/22 15:00 Stool Culture - Preliminary Stool
[2022-01-07] MEDS: LORazepam 0.5 MG TAB PO PRN (20:38)
[2022-01-08] MEDS: SODIUM CHLORIDE 0.9% 1,000 ML IV SCH ×2 (05:15→10:51)
[2022-01-08 06:40] LABS: HCT 40.1 % (34.0-46.0); HGB 12.9 gm/dL (11.4-16.0); MCH 30.7 pg (25.0-35.0); MCV 95.8 fL (80.0-100.0); Mean Platelet Volume 7.3; Platelet Count 408 k/uL (150-450); RBC 4.19 m/uL (3.80-5.40); RDW 13.6 % (11.5-15.5); WBC 10.1 k/uL (3.8-10.6)
[2022-01-08 06:50] LABS: African American GFR (CKD) >90 (>60 ml/min/1.73 sqM); Anion Gap 9 mmol/L; Blood Urea Nitrogen 13 mg/dL (7-17); Carbon Dioxide 20 mmol/L (22-30); Chloride 109 mmol/L (98-107); Glucose 110 mg/dL (74-99); Non-African American GFR(CKD) 88 (>60 ml/min/1.73 sqM); Potassium 3.6 mmol/L (3.5-5.1); Sodium 138 mmol/L (137-145)
[2022-01-08] MEDS: SYMBICORT 160-4.5 MCG INHALER INHALATION SCH ×2 (07:17→19:05)
[2022-01-08] MEDS: IPRATROPIUM-ALBUTEROL 3 ML NEB INHALATION SCH ×4 (07:18→19:05)
[2022-01-08] MEDS: metroNIDAZOLE 500 MG TAB PO SCH ×4 (09:13→21:57)
[2022-01-08] MEDS: DULoxetine HCL 30 MG CAPSULE.DR PO SCH (09:13)
[2022-01-08] MEDS: METOPROLOL TARTRATE 25 MG TAB PO SCH ×2 (09:13→20:33)
[2022-01-08] MEDS: PANTOPRAZOLE 40 MG/10 ML VIAL IVP SCH ×2 (09:15→20:33)
[2022-01-08] MEDS: CHOLESTYRAMINE (WITH SUGAR) 4 GM PACKET PO SCH ×3 (09:22→17:55)
[2022-01-08] MEDS: MAG HYDROX PO SCH ×3 (09:22)
[2022-01-08] MEDS: SIMETH PO SCH ×3 (09:22)
[2022-01-08] MEDS: [UNRECOGNIZED DRUG - OTHER] PO SCH ×3 (09:22)
[2022-01-08] MEDS: ACETAMINOPHEN PO SCH ×3 (09:22)
[2022-01-08] MEDS: AL HYDROX PO SCH ×3 (09:22)
--- NOTE | 2022-01-08 09:43 | P.PN ---
Subjective Progress Note Date: 01/08/22 Principal diagnosis: Dilated pancreatic duct Patient had some abdominal cramps last night. She has had 3 bowel movements overnight. No rectal bleeding. Tolerating diet. MRI of the pancreas showed no evidence of mass. Possible stricture at the ampulla of Vater. Yesterday's liver enzymes however were completely normal. Objective - Vital Signs Vital signs: Vital Signs Temp 97 F L 01/08/22 07:00 Pulse 88 01/08/22 09:10 Resp 18 01/08/22 07:00 BP 138/82 01/08/22 07:00 Pulse Ox 98 01/08/22 07:00 Intake & Output 01/07/22 01/08/22 01/08/22 18:59 06:59 18:59 Intake Total 240 45 Balance 240 45 Intake: Oral 240 45 Other: # Voids 1 1 # Bowel Movements 3 1 1 - Exam Abdomen: Soft, nontender, nondistended - Labs CBC & Chem 7: 01/08/22 06:13 01/08/22 06:13 Labs: Abnormal Lab Results - Last 24 Hours (Table) 01/06/22 01/08/22 Range/Units 15:00 06:13 Chloride 109 H (98-107) mmol/L Carbon Dioxide 20 L (22-30) mmol/L Glucose 110 H (74-99) mg/dL Calcium 8.0 L (8.4-10.2) mg/dL Stool Occult Blood Positive A (Negative) Assessment and Plan (1) Dilated pancreatic duct Narrative/Plan: Patient still having some vague abdominal discomforts. We were consulted for dilated pancreatic duct. No evidence of pancreatic malignancy on MRI. Patient's labs do not suggest significant degree of biliary or pancreatic obstruction. No further general surgery intervention planned at this time. We'll sign off. Please call if needed. Current Visit: Yes Status: Acute Code(s): K86.89 - OTHER SPECIFIED DISEASES OF PANCREAS SNOMED Code(s): 472648895
[2022-01-08] MEDS: ONDANSETRON 4 MG/2 ML VIAL IVP PRN (10:51)
--- NOTE | 2022-01-08 12:57 | P.PN ---
Subjective Progress Note Date: 01/08/22 Principal diagnosis: diarrhea Patient is a 76 yo CF with a hx of Arrhythmia s/p ablation, diverticulitis, COPD and HTN who presented to the ED with complaints of 2 weeks of diarrhea. In the ED she was found to be tachycardiac and had a leukocytosis. CT abd and pelvis sh owed a dilated pancreatic duct and possible colitis with fluid in the rectum. She was admitted and started on IV fluids, Rocephin, and Flagyl. Surgery was consulted. Due to her dilated pancreatic MRCP was ordered which showed possible structure of the pancreatic duct but no pancreatic head mass. Her hemoglobin did drop by 2 g the morning after admission. C. diff was negative. Cultures are pending. Patient seen and examined at bedside. She continues to complain of diarrhea though there are only 2 episodes and she reports they were [place] than prior. She denies any current nausea but states she had nausea and dry heaves last night. She has not been tolerating her clear liquid diet. She is still feeling very tired. She again is asking to stay in the hospital longer because she li ves alone. Per nursing stool appeared to be dark black concerns for blind, odor was consistent with melena. General: non toxic, no distress, appears at stated age Derm: warm, dry Head: atraumatic, normocephalic, symmetric Eyes: EOMI, no lid lag, anicteric sclera Mouth: no lip lesion, mucus membranes dry Cardiovascular: S1S2 reg, no murmur, positive posterior tibial pulse bilateral, Lungs: Coarse breath sounds bilateral, no rhonchi, no rales , no accessory muscle use Abdominal: soft, nontender to palpation, no guarding, no appreciable organomegaly Ext: no gross muscle atrophy, no edema, no contractures Neuro: CN II-XI grossly intact, no focal neuro deficits Psych: Alert, oriented, appropriate affect Assessment/plan: Diarrhea likely due to colitis/ dysentery Positive fecal occult blood Intractable nausea and vomiting leukocytosis Dehydration Pancreatic stricture thrombocytosis, resolved - IV fluids - antiemetics - surgery recs apprecaited - cholestyramine patient was refusing but will encourage to take. - stool culture pending - follow CBC, add Protonix twice a day - rocephin and flagyl oral apthus ulcers - orajel COPD without exacerbation - bronchodilators HTN - lopressor DVT - hx in the past Transition patient to inpatient status due to failed outpatient treatment of colitis with possible GI bleed. Active Medications Generic Name Dose Route Start Last Admin Trade Name Freq PRN Reason Stop Dose Admin Acetaminophen 650 mg 01/06/22 12:27 Acetaminophen Tab 325 Mg Tab PO Q6HR PRN Mild Pain or Fever > 100.5 Albuterol Sulfate 2 puff 01/06/22 15:50 Albuterol Hfa Inhaler INHALATION RT-QID PRN Shortness Of Breath Albuterol/Ipratropium 3 ml 01/06/22 16:00 01/08/22 10:48 Ipratropium-Albuterol 3 Ml Neb INHALATION Not Given RT-QID S[facility]ITA Alprazolam 0.25 mg 01/06/22 15:48 Alprazolam 0.25 Mg Tab PO Q6HR PRN Anxiety Budesonide/Formoterol Fumarate 2 puff 01/06/22 20:00 01/08/22 07:17 Symbicort 160-4.5 Mcg Inhaler INHALATION Not Given RT-BID [facility] Cholestyramine Resin 4 gm 01/06/22 18:00 01/08/22 09:22 Cholestyramine (With Sugar) 4 Gm Packet PO 4 gm TID BETWEEN MEALS SAVITA Administration Duloxetine HCl 30 mg 01/07/22 09:00 01/08/22 09:13 Duloxetine Hcl 30 Mg Capsule.Dr PO 30 mg DAILY SAVITA Administration Enoxaparin Sodium 40 mg 01/06/22 16:00 01/07/22 15:52 Enoxaparin 40 Mg/0.4 Ml Syringe SQ 40 mg DAILY@1600 SAVITA Administration Hydromorphone HCl 0.5 mg 01/06/22 12:27 Hydromorphone 0.5 Mg/0.5 Ml Syringe IVP Q3HR PRN Moderate Pain Hydromorphone HCl 1 mg 01/06/22 12:27 Hydromorphone 1 Mg/Ml 1 Ml Syringe IVP Q3HR PRN Severe Pain Sodium Chloride 1,000 mls @ 75 mls/hr 01/06/22 12:30 01/08/22 10:51 Saline 0.9% IV 75 mls/hr .[id number] SAVITA Administration Ceftriaxone Sodium 1 gm/ 50 mls @ 100 mls/hr 01/06/22 21:00 01/08/22 09:10 Sodium Chloride IVPB 100 mls/hr Q12HR SAVITA Administration Protocol Lorazepam 0.5 mg 01/06/22 15:50 01/07/22 20:38 Lorazepam 0.5 Mg Tab PO 0.5 mg Q6H PRN Administration Anxiety Metoprolol Tartrate 25 mg 01/06/22 21:00 01/08/22 09:13 Metoprolol Tartrate 25 Mg Tab PO 25 mg BID SAVITA Administration Metronidazole 500 mg 01/06/22 18:00 01/08/22 09:13 Metronidazole 500 Mg Tab PO 500 mg QID SAVITA Administration Protocol Naloxone HCl 0.2 mg 01/06/22 12:27 Naloxone 0.4 Mg/Ml 1 Ml Vial IV Q2M PRN Opioid Reversal Ondansetron HCl 4 mg 01/06/22 12:27 01/08/22 10:51 Ondansetron 4 Mg/2 Ml Vial IVP 4 mg Q8HR PRN Administration Nausea And Vomiting Pantoprazole Sodium 40 mg 01/07/22 14:00 01/08/22 09:15 Pantoprazole 40 Mg/10 Ml Vial IVP 40 mg BID SAVITA Administration Objective - Vital Signs Vital signs: Vital Signs Temp 97 F L 01/08/22 07:00 Pulse 88 01/08/22 09:10 Resp 18 01/08/22 07:00 BP 138/82 01/08/22 07:00 Pulse Ox 98 01/08/22 07:00 Intake & Output 01/07/22 01/08/22 01/08/22 18:59 06:59 18:59 Intake Total 240 105 Output Total 325 Balance 240 -220 Intake: Oral 240 105 Output: Urine 325 Other: # Voids 1 1 # Bowel Movements 3 1 1 - Labs CBC & Chem 7: 01/08/22 06:13 01/08/22 06:13 Labs: Abnormal Lab Results - Last 24 Hours (Table) 01/06/22 01/08/22 Range/Units 15:00 06:13 Chloride 109 H (98-107) mmol/L Carbon Dioxide 20 L (22-30) mmol/L Glucose 110 H (74-99) mg/dL Calcium 8.0 L (8.4-10.2) mg/dL Stool Occult Blood Positive A (Negative)
--- NOTE | 2022-01-08 12:59 | P.PN ---
Subjective Progress Note Date: 01/08/22 Principal diagnosis: diarrhea Patient is a 76 yo CF with a hx of Arrhythmia s/p ablation, diverticulitis, COPD and HTN who presented to the ED with complaints of 2 weeks of diarrhea. In the ED she was found to be tachycardiac and had a leukocytosis. CT abd and pelvis sh owed a dilated pancreatic duct and possible colitis with fluid in the rectum. She was admitted and started on IV fluids, Rocephin, and Flagyl. Surgery was consulted. Due to her dilated pancreatic MRCP was ordered which showed possible structure of the pancreatic duct but no pancreatic head mass. Her hemoglobin did drop by 2 g the morning after admission. C. diff was negative. Cultures are pending. She continued to have multiple bowel movements daily and abdominal cramping. Patient seen and examined at bedside. Patient seen and examined at bedside. She complains that she has had 5 bowel movements since 2 AM and that she just would not be able to handle her at home as her kids both work. She states she has had some abdominal cramping. She did finally agree to take the cold started running today. She has not vomited but states she has ate very little. General: non toxic, no distress, appears at stated age Derm: warm, dry Head: atraumatic, normocephalic, symmetric Eyes: EOMI, no lid lag, anicteric sclera Mouth: no lip lesion, mucus membranes dry Cardiovascular: S1S2 reg, no murmur, positive posterior tibial pulse bilateral, Lungs: Coarse breath sounds bilateral, no rhonchi, no rales , no accessory muscle use Abdominal: soft, nontender to palpation, no guarding, no appreciable organomegaly Ext: no gross muscle atrophy, no edema, no contractures Neuro: CN II-XI grossly intact, no focal neuro deficits Psych: Alert, oriented, appropriate affect Assessment/plan: Diarrhea likely due to colitis/ dysentery Positive fecal occult blood Intractable nausea and vomiting leukocytosis, resolved Dehydration Pancreatic stricture thrombocytosis, resolved - IV fluids - antiemetics - surgery recs appreciated - cholestyramine - stool culture pending - follow CBC, Protonix twice a day - rocephin and flagyl - full liquid diet oral apthus ulcers - orajel COPD without exacerbation - bronchodilators HTN - lopressor DVT - hx in the past Active Medications Generic Name Dose Route Start Last Admin Trade Name Freq PRN Reason Stop Dose Admin Acetaminophen 650 mg 01/06/22 12:27 Acetaminophen Tab 325 Mg Tab PO Q6HR PRN Mild Pain or Fever > 100.5 Albuterol Sulfate 2 puff 01/06/22 15:50 Albuterol Hfa Inhaler INHALATION RT-QID PRN Shortness Of Breath Albuterol/Ipratropium 3 ml 01/06/22 16:00 01/08/22 10:48 Ipratropium-Albuterol 3 Ml Neb INHALATION Not Given RT-QID [facility] Alprazolam 0.25 mg 01/06/22 15:48 Alprazolam 0.25 Mg Tab PO Q6HR PRN Anxiety Budesonide/Formoterol Fumarate 2 puff 01/06/22 20:00 01/08/22 07:17 Symbicort 160-4.5 Mcg Inhaler INHALATION Not Given RT-BID [facility] Cholestyramine Resin 4 gm 01/06/22 18:00 01/08/22 09:22 Cholestyramine (With Sugar) 4 Gm Packet PO 4 gm TID BETWEEN MEALS SAVITA Administration Duloxetine HCl 30 mg 01/07/22 09:00 01/08/22 09:13 Duloxetine Hcl 30 Mg Capsule.Dr PO 30 mg DAILY SAVITA Administration Enoxaparin Sodium 40 mg 01/06/22 16:00 01/07/22 15:52 Enoxaparin 40 Mg/0.4 Ml Syringe SQ 40 mg DAILY@1600 S[facility]ITA Administration Hydromorphone HCl 0.5 mg 01/06/22 12:27 Hydromorphone 0.5 Mg/0.5 Ml Syringe IVP Q3HR PRN Moderate Pain Hydromorphone HCl 1 mg 01/06/22 12:27 Hydromorphone 1 Mg/Ml 1 Ml Syringe IVP Q3HR PRN Severe Pain Sodium Chloride 1,000 mls @ 75 mls/hr 01/06/22 12:30 01/08/22 10:51 Saline 0.9% IV 75 mls/hr .[id number] SAVITA Administration Ceftriaxone Sodium 1 gm/ 50 mls @ 100 mls/hr 01/06/22 21:00 01/08/22 09:10 Sodium Chloride IVPB 100 mls/hr Q12HR SAVITA Administration Protocol Lorazepam 0.5 mg 01/06/22 15:50 01/07/22 20:38 Lorazepam 0.5 Mg Tab PO 0.5 mg Q6H PRN Administration Anxiety Metoprolol Tartrate 25 mg 01/06/22 21:00 01/08/22 09:13 Metoprolol Tartrate 25 Mg Tab PO 25 mg BID S[facility]ITA Administration Metronidazole 500 mg 01/06/22 18:00 01/08/22 09:13 Metronidazole 500 Mg Tab PO 500 mg QID SAVITA Administration Protocol Naloxone HCl 0.2 mg 01/06/22 12:27 Naloxone 0.4 Mg/Ml 1 Ml Vial IV Q2M PRN Opioid Reversal Ondansetron HCl 4 mg 01/06/22 12:27 01/08/22 10:51 Ondansetron 4 Mg/2 Ml Vial IVP 4 mg Q8HR PRN Administration Nausea And Vomiting Pantoprazole Sodium 40 mg 01/07/22 14:00 01/08/22 09:15 Pantoprazole 40 Mg/10 Ml Vial IVP 40 mg BID SAVITA Administration Objective - Vital Signs Vital signs: Vital Signs Temp 97 F L 01/08/22 07:00 Pulse 88 01/08/22 09:10 Resp 18 01/08/22 07:00 BP 138/82 01/08/22 07:00 Pulse Ox 98 01/08/22 07:00 Intake & Output 01/07/22 01/08/22 01/08/22 18:59 06:59 18:59 Intake Total 240 105 Output Total 325 Balance 240 -220 Intake: Oral 240 105 Output: Urine 325 Other: # Voids 1 1 # Bowel Movements 3 1 1 - Labs CBC & Chem 7: 01/08/22 06:13 01/08/22 06:13 Labs: Abnormal Lab Results - Last 24 Hours (Table) 01/06/22 01/08/22 Range/Units 15:00 06:13 Chloride 109 H (98-107) mmol/L Carbon Dioxide 20 L (22-30) mmol/L Glucose 110 H (74-99) mg/dL Calcium 8.0 L (8.4-10.2) mg/dL Stool Occult Blood Positive A (Negative)
[2022-01-08] MEDS: ENOXAPARIN 40 MG/0.4 ML SYRINGE SQ SCH (15:48)
[2022-01-08] MEDS: LORazepam 0.5 MG TAB PO PRN (20:33)
[2022-01-09 05:54] LABS: HCT 38.9 % (34.0-46.0); HGB 12.1 gm/dL (11.4-16.0); Hypochromasia Moderate; MCH 31.2 pg (25.0-35.0); MCV 100.6 fL (80.0-100.0); Mean Platelet Volume 7.2; Platelet Count 442 k/uL (150-450); RBC 3.87 m/uL (3.80-5.40); RDW 13.2 % (11.5-15.5); WBC 8.1 k/uL (3.8-10.6)
[2022-01-09] MEDS: IPRATROPIUM-ALBUTEROL 3 ML NEB INHALATION SCH ×4 (08:12→20:31)
[2022-01-09] MEDS: SYMBICORT 160-4.5 MCG INHALER INHALATION SCH ×2 (08:12→20:31)
[2022-01-09] MEDS: CHOLESTYRAMINE (WITH SUGAR) 4 GM PACKET PO SCH ×3 (08:49→17:44)
[2022-01-09] MEDS: METOPROLOL TARTRATE 25 MG TAB PO SCH ×2 (08:49→20:42)
[2022-01-09] MEDS: metroNIDAZOLE 500 MG TAB PO SCH ×4 (08:49→20:49)
[2022-01-09] MEDS: DULoxetine HCL 30 MG CAPSULE.DR PO SCH (08:49)
[2022-01-09] MEDS: SODIUM CHLORIDE 0.9% 1,000 ML IV SCH ×2 (08:50→20:50)
[2022-01-09] MEDS: PANTOPRAZOLE 40 MG/10 ML VIAL IVP SCH (08:53)
[2022-01-09] MEDS: ONDANSETRON 4 MG/2 ML VIAL IVP PRN (08:58)
[2022-01-09] MEDS ORDERED: PROCHLORPERAZINE INJ 10 MG/2 ML VIAL IVP PRN (14:35)
--- NOTE | 2022-01-09 15:08 | P.PN ---
Subjective Progress Note Date: 01/09/22 Principal diagnosis: Diarrhea Patient is a 76 yo CF with a hx of arrhythmia s/p ablation, diverticulitis, COPD and HTN who presented to the ED with complaints of 2 weeks of diarrhea. In the ED she was found to be tachycardiac and had a leukocytosis. CT abd and pelvis showed a dilated pancreatic duct and possible colitis with fluid in the rectum. She was admitted and started on IV fluids, Rocephin, and Flagyl. Surgery was consulted. Due to her dilated pancreatic MRCP was ordered which showed possible structure of the pancreatic duct but no pancreatic head mass. Her hemoglobin did drop by 2 g the morning after admission. C. diff was negative. Cultures are pending. She continued to have multiple bowel movements daily and abdominal cramping. Surgery signed off. Patient seen and examined at bedside. She is still nauseated. She conitnues to have diarrhea though it is less frequent. She has some abdominal pain when I palpate but none at rest. Is frustrated that zofran is not working for her nausea. General: non toxic, no distress, appears at stated age Derm: warm, dry Head: atraumatic, normocephalic, symmetric Eyes: EOMI, no lid lag, anicteric sclera Mouth: no lip lesion, mucus membranes dry Cardiovascular: S1S2 reg, no murmur, positive posterior tibial pulse bilateral, Lungs: Coarse breath sounds bilateral, no rhonchi, no rales , no accessory muscle use Abdominal: soft, nontender to palpation, no guarding, no appreciable organomegaly Ext: no gross muscle atrophy, no edema, no contractures Neuro: CN II-XI grossly intact, no focal neuro deficits Psych: Alert, oriented, appropriate affect Assessment/plan: Diarrhea likely due to colitis/ dysentery Positive fecal occult blood Intractable nausea and vomiting leukocytosis, resolved Dehydration Pancreatic stricture thrombocytosis, resolved - IV fluids - antiemetics changed to compazine - surgery signed off, consult GI - cholestyramine - stool culture pending - follow CBC, Protonix twice a day - rocephin and flagyl - full liquid diet oral apthus ulcers - orajel COPD without exacerbation - bronchodilators HTN - lopressor DVT - hx in the past DVT prophylaxis: Lovenox Discussed with: patient, nursing Anticipated discharge: in 1-[address]: home A total of 25 minutes was spent on the care of this complex patient more than 50% of the time was spent in counseling and care coordination. Objective - Vital Signs Vital signs: Vital Signs Temp 97.9 F 01/09/22 14:00 Pulse 95 01/09/22 14:00 Resp 20 01/09/22 14:00 BP 140/81 01/09/22 14:00 Pulse Ox 100 01/09/22 14:00 Intake & Output 01/08/22 01/09/22 01/09/22 18:59 06:59 18:59 Intake Total 345 118 Output Total 325 Balance 20 118 Intake: Oral 345 118 Output: Urine 325 Other: # Voids 1 4 1 # Bowel Movements 1 4 2 - Labs CBC & Chem 7: 01/09/22 05:20 01/08/22 06:13 Labs: Abnormal Lab Results - Last 24 Hours (Table) 01/09/22 Range/Units 05:20 MCV 100.6 H (80.0-100.0) fL
[2022-01-09] MEDS: ENOXAPARIN 40 MG/0.4 ML SYRINGE SQ SCH (15:29)
[2022-01-09] MEDS: LORazepam 0.5 MG TAB PO PRN (20:42)
[2022-01-09] MEDS: PANTOPRAZOLE 40 MG TABLET PO SCH (20:42)
[2022-01-10] MEDS: SYMBICORT 160-4.5 MCG INHALER INHALATION SCH ×2 (07:40→19:33)
[2022-01-10] MEDS: IPRATROPIUM-ALBUTEROL 3 ML NEB INHALATION SCH ×4 (07:44→19:20)
[2022-01-10] MEDS: metroNIDAZOLE 500 MG TAB PO SCH ×3 (11:30→21:21)
[2022-01-10] MEDS: PANTOPRAZOLE 40 MG TABLET PO SCH ×2 (11:30→21:21)
[2022-01-10] MEDS: METOPROLOL TARTRATE 25 MG TAB PO SCH ×2 (11:31→21:21)
[2022-01-10] MEDS: DULoxetine HCL 30 MG CAPSULE.DR PO SCH (11:31)
[2022-01-10] MEDS: SODIUM CHLORIDE 0.9% 1,000 ML IV SCH ×2 (11:43→23:04)
[2022-01-10] MEDS: CHOLESTYRAMINE (WITH SUGAR) 4 GM PACKET PO SCH (11:44)
[2022-01-10] MEDS: DICYCLOMINE 10 MG CAP PO SCH ×3 (14:10→21:21)
--- NOTE | 2022-01-10 14:28 | P.CONS ---
History of Present Illness - Reason for Consult Consult date: 01/10/22 Bloody diarrhea Requesting physician: Triny Argueta - Chief Complaint Vomiting and diarrhea - History of Present Illness This is a 46-year-old female who presented to emergency department 4 days ago with complaints of vomiting and diarrhea. States that she's been having watery diarrhea that began 2 weeks ago and having anywhere between 3-4 loose stools daily. Denies any bleeding but states that she is having cramping prior to the bowel movement. She had stool studies including C. difficile tox which was negative as well as stool culture. On admission she had a mild elevation in her white count at 13.7. She was started on IV Rocephin and Flagyl. Patient states diarrhea has improved, as well as no further nausea and vomiting. She did have a positive occult stool on 01/06/2022. She had a CT of the abdomen and pelvis with findings of no bowel obstruction. Abnormal fluid and rectum could reflect product of mild uncomplicated colitis and/or diarrhea. Mild to moderate biliary dilation without obstructing calculus or mass clearly seen. Correlate clinic ally with liver lab values consider ERCP for further evaluation. Gen. surgery has been consulted for biliary dilation, patient has had no elevated liver enzymes. Gen. surgery has signed off with no plans and intervention. Patient denies any history of colitis in the past. Last colonoscopy several years ago , She believes around 2011 when she had a bowel resection done by Dr. Amanda Gee. Review of Systems REVIEW OF SYSTEMS: CARDIOPULMONARY: No chest pain or shortness of breath. Gastrointestinal: Abdominal cramping. No nausea or vomiting. No hematemesis, coffee-ground emesis. No rectal bleeding, or melena. Diarrhea. GENITOURINARY: No dysuria or hematuria. MUSCULOSKELETAL: Reports normal range of motion. SKIN: No rashes. No jaundice. ENDOCRINE: No chills, fevers. No excessive weight gain or loss. No polydipsia or polyuria. PSYCHIATRIC: Unremarkable. NEUROLOGY: No change in mental status. Denies dizziness, headache. ENT: Vision unremarkable. CONSTITUTIONAL: No recent weight loss. No fever, chills, night sweats. Past Medical History Past Medical History: COPD, Deep Vein Thrombosis (DVT), GERD/Reflux, Hypertension, Osteoarthritis (OA) Additional Past Medical History / Comment(s): hx- diverticulitis, sciatica left side. History of Any Multi-Drug Resistant Organisms: None Reported Past Surgical History: Bladder Surgery, Bowel Resection, Cardiac Ablation, Cholecystectomy, Heart Catheterization, Heart Catheterization With Stent, Hysterectomy Additional Past Surgical History / Comment(s): Bladder suspension, lt knee x2 arthroscopic, PAIN CLINIC PROCEDURES, LB CATARACT, one cardiac stent, bowel resection with colostomy/later reversal Past Anesthesia/Blood Transfusion Reactions: Motion Sickness Date of Last Stent Placement:: 2010 Past Psychological History: Anxiety, Depression Smoking Status: Former smoker (quit Aug) Past Alcohol Use History: Daily (1-3 beers dailt ) Past Drug Use History: None Reported - Past Family History Sister(s) Family Medical History: Cancer Additional Family Medical History / Comment(s): rectal cancer Medications and Allergies Home Medications Medication Instructions Recorded Confirmed Type Ascorbic Acid [Vitamin C] 2,000 mg PO DAILY 06/14/18 01/06/22 History Aspirin [Adult Low Dose Aspirin EC] 81 mg PO DAILY 06/14/18 01/06/22 History DULoxetine HCL [Cymbalta] 30 mg PO DAILY 06/14/18 01/06/22 History LORazepam [Ativan] 0.5 mg PO Q6H PRN 06/14/18 01/06/22 History Metoprolol Tartrate [Lopressor] 25 mg PO BID 06/14/18 01/06/22 History [place]-3 Fatty Acids [[place]-3] 1,000 mg PO DAILY 06/14/18 01/06/22 History Potassium Chloride [K-Tab ER] 20 meq PO DAILY 06/14/18 01/06/22 History Torsemide [Demadex] 20 mg PO DAILY 06/14/18 01/06/22 History Vitamin E (Dl,Tocopheryl Acet) 400 units PO DAILY 06/14/18 01/06/22 History [Vitamin E (400 Iu = 180 mg)] Naproxen Sodium [Aleve] 440 mg PO Q12H PRN 12/16/18 01/06/22 History Albuterol Sulfate [Albuterol 2 puff INHALATION RT-QID PRN 01/06/22 01/06/22 History Sulfate Hfa] Budesonide/Formoterol Fumarate 2 puff INHALATION RT-BID 01/06/22 01/06/22 History [Symbicort 160-4.5 Mcg Inhaler] Calcium Carbonate/Vitamin D3 1 tab PO DAILY 01/06/22 01/06/22 History [Calcium 500-Vit D3 5 Mcg (200 Iu)] Cholecalciferol [Vitamin D3 (25 50 mcg PO DAILY 01/06/22 01/06/22 History Mcg = 1000 Iu)] Diphenox-Atrop 2.5-0.025 mg 2 tab PO QID 01/06/22 01/06/22 History [Lomotil] Ipratropium-Albuterol Nebulize 3 ml INHALATION RT-QID 01/06/22 01/06/22 History [Duoneb 0.5 mg-3 mg/3 ml Soln] Allergies Allergy/AdvReac Type Severity Reaction Status Date / Time ergocalciferol (vitamin D2) Allergy Rash/Hives Verified 01/06/22 13:25 [From Vitamin D2] Physical Exam Vitals: Vital Signs Temp Pulse Pulse Resp BP BP Pulse Ox 01/10/22 07:45 96 01/10/22 07:34 97.9 F 95 16 120/77 94 L 01/10/22 04:45 98.2 F 85 20 144/84 96 01/09/22 20:00 97.9 F 91 16 135/81 96 01/09/22 14:00 97.9 F 95 20 140/81 100 Intake and Output 01/09/22 01/10/22 01/10/22 22:59 06:59 14:59 Intake Total 1815 220 Output Total 3 Balance 1812 220 Intake: Intake, IV Titration 875 Amount Sodium Chloride 0.9% 1, 825 000 ml @ 75 mls/hr IV . [id number] SAVITA Rx#:[id number] cefTRIAXone 1 gm In 50 Sodium Chloride 0.9% 50 ml @ 100 mls/hr IVPB Q12HR SAVITA Rx#:[id number] Oral 940 220 Output: Stool 3 Other: Voiding Method Toilet Bedside Commode # Voids 1 1 # Bowel Movements 1 1 1 General appearance: The patient is alert, oriented, appears in no acute distress. HET: Head is normocephalic and atraumatic. Conjunctiva pink. Sclera anicteric. Neck: Supple without lymphadenopathy. Trachea midline. Heart: S1 S2. Regular rate and rhythm. Lungs: Clear to auscultation. Abdomen: Soft, lower abdominal tenderness, nondistended with bowel sounds. No guarding or rigidity. Skin: No rashes. No jaundice. Extremities: Normal skin color and turgor. No pedal edema. Neurological: No focal deficits. Alert and oriented x3. Results CBC & Chem 7: 01/09/22 05:20 01/08/22 06:13 Labs: Microbiology - Last 24 Hours (Table) 01/06/22 15:00 Stool Culture - Final Stool Comments: CT of the abdomen and pelvis with findings of no bowel obstruction. Abnormal fluid and rectum could reflect product of mild uncomplicated colitis and/or diarrhea. Mild to moderate biliary dilation without obstructing calculus or mass clearly seen. Correlate clinically with liver lab values consider ERCP for further evaluation. Assessment and Plan (1) Diarrhea Narrative/Plan: 76-year-old female who presented to the emergency department 4 days ago with complaints of ongoing diarrhea over the last 2 weeks duration. Patient reports it is nonbloody, watery diarrhea. Diarrhea is associated with abdominal cramping. She is not having any further nausea or vomiting. Patient was starte d on IV Rocephin and Flagyl on admission with a mildly elevated WBC. Stool cultures were negative as well as C. difficile toxin. Stool lactoferrin was not collected. She did have a positive occult stool however hemoglobin is been stable. She has been afebrile. CT of abdomen and pelvis shows no bowel obstruction. Abnormal fluid and rectum that could reflect uncomplicated colitis and/or diarrhea. He was also noted she had some moderate biliary dilation for which Gen. surgery was on consult and has signed off with no plans for any surgical intervention. LFTs have been normal since admission. Likely we are dealing with colitis possible infectious. Patient has been on IV antibiotics, will plan on discontinuing Rocephin as Flagyl should be sufficient. Symptoms are improving. No plans on endoscopic evaluation at this time. Will have patient follow-up in outpatient setting and likely proceed with colonoscopy. Current Visit: Yes Status: Acute Code(s): R19.7 - DIARRHEA, UNSPECIFIED SNOMED Code(s): 44774096 Plan: 1. Continue symptomatic and supportive care 2. We'll advance to low-fat low fiber diet 3. Recommend discontinuing Rocephin, Flagyl should be sufficient coverage 4. Discontinue Questran, Bentyl added 5. Plans on endoscopic evaluation at this time Thank you for this consultation, we will continue to follow. Dr. Huy Salguero I agree with the dictator's note, documented as a scribe by Maritza Agudelo.
[2022-01-10] MEDS: ENOXAPARIN 40 MG/0.4 ML SYRINGE SQ SCH (17:32)
--- NOTE | 2022-01-10 17:35 | P.PN ---
Subjective Principal diagnosis: Patient is a 76 yo CF with a hx of arrhythmia s/p ablation, diverticulitis, COPD and HTN who presented to the ED with complaints of [address] abd and pelvis showed a dilated pancreatic duct and possible colitis with fluid in the rectum Evaluated by GI and general surgery Doing well today. Feeling much more energetic. Still some nonbloody diarrhea and no abdominal pain no nausea no vomiting. Objective - Vital Signs Vital signs: Vital Signs Temp 97.9 F 01/10/22 11:20 Pulse 92 01/10/22 11:20 Resp 18 01/10/22 11:20 BP 125/70 01/10/22 11:20 Pulse Ox 91 L 01/10/22 15:07 Intake & Output 01/09/22 01/10/22 01/10/22 18:59 06:59 18:59 Intake Total 1933 220 900 Output Total 3 Balance 1930 220 900 Intake: Intake, IV Titration 875 900 Amount Sodium Chloride 0.9% 1, 825 900 000 ml @ 75 mls/hr IV . [id number] [facility] Rx#:[id number] cefTRIAXone 1 gm In 50 Sodium Chloride 0.9% 50 ml @ 100 mls/hr IVPB Q12HR [facility] Rx#:[id number] Oral 1058 220 Output: Stool 3 Other: Voiding Method Toilet Toilet Bedside Commode Bedside Commode # Voids 3 1 1 # Bowel Movements 2 1 3 - Exam General: non toxic, no distress, appears at stated age Derm: warm, dry Head: atraumatic, normocephalic, symmetric Eyes: EOMI, no lid lag, anicteric sclera Mouth: no lip lesion, mucus membranes dry Cardiovascular: S1S2 reg, no murmur, positive posterior tibial pulse bilateral, Lungs: Coarse breath sounds bilateral, no rhonchi, no rales , no accessory muscle use Abdominal: soft, nontender to palpation, no guarding, no appreciable organomegaly Ext: no gross muscle atrophy, no edema, no contractures Neuro: CN II-XI grossly intact, no focal neuro deficits Psych: Alert, oriented, appropriate affect - Labs CBC & Chem 7: 01/09/22 05:20 01/08/22 06:13 Labs: Microbiology - Last 24 Hours (Table) 01/06/22 15:00 Stool Culture - Final Stool Assessment and Plan Plan: #Subacute Diarrhea likely due to colitis Positive fecal occult blood GI consult, may need colonoscopy Continue IV fluids Adjust antibiotics per GI recommendations Will add ESR #Pancreatic stricture Normal liver enzymes and bilirubin GI consulted COPD without exacerbation - bronchodilators HTN - lopressor DVT - hx in the past DVT prophylaxis: Lovenox
[2022-01-10] MEDS: LORazepam 0.5 MG TAB PO PRN (21:24)
[2022-01-11] MEDS: IPRATROPIUM-ALBUTEROL 3 ML NEB INHALATION SCH ×4 (07:22→21:12)
[2022-01-11] MEDS: SYMBICORT 160-4.5 MCG INHALER INHALATION SCH ×2 (07:22→21:12)
[2022-01-11] MEDS: PANTOPRAZOLE 40 MG TABLET PO SCH ×2 (08:06→20:49)
[2022-01-11] MEDS: METOPROLOL TARTRATE 25 MG TAB PO SCH ×2 (08:06→20:49)
[2022-01-11] MEDS: DULoxetine HCL 30 MG CAPSULE.DR PO SCH (08:06)
[2022-01-11] MEDS: metroNIDAZOLE 500 MG TAB PO SCH ×3 (08:06→20:49)
[2022-01-11] MEDS: DICYCLOMINE 10 MG CAP PO SCH ×4 (08:06→20:49)
[2022-01-11 09:10] LABS: HCT 33.8 % (37.2-46.3); HGB 10.9 g/dL (12.0-15.0); MCH 30.3 pg (27.0-32.0); MCHC 32.2 g/dL (32.0-37.0); MCV 93.9 fL (80.0-97.0); Mean Platelet Volume 8.8 fL (9.5-12.2); NRBC Per 100 WBC 0 /100 WBCS (0.0-0.0); Platelet Count 418 X 10*3/uL (140-440); RDW 13.7 % (11.5-14.5); WBC 9.07 X 10*3/uL (4.50-10.00)
[2022-01-11 10:05] LABS: ALT 12 U/L (8-44); AST 15 U/L (13-35); African American GFR (CKD) 100.4 (60.0-200.0); Albumin 2.2 g/dL (3.8-4.9); Albumin/Globulin Ratio 1.13 (1.60-3.17); Alkaline Phosphatase 52 U/L (41-126); BUN/Creat Ratio 8.93 Ratio (12.00-20.00); Blood Urea Nitrogen 5.5 mg/dL (9.0-27.0); Calcium 8.4 mg/dL (8.7-10.3); Carbon Dioxide 18.6 mmol/L (20.0-27.5); Chloride 109 mmol/L (96-109); Glucose 92 mg/dL (70-110); Non-African American GFR(CKD) 86.6 (60.0-200.0); Potassium 3.5 mmol/L (3.5-5.5); Sodium 140 mmol/L (135-145); Total Bilirubin <0.15 mg/dL (0.30-1.20); Total Protein 4.2 g/dL (6.2-8.2)
--- NOTE | 2022-01-11 11:25 | P.PN ---
Subjective Progress Note Date: 01/11/22 Principal diagnosis: Diarrhea This is a 76-year-old female seen today as a follow-up for consult for acute diarrhea for last 2 weeks duration. Patient had been started on Rocephin and Flagyl. Symptoms are improving. Actually had one loose stool this morning. Rocephin was discontinued yesterday, patient continues on Flagyl. She is afebrile. She denies any nausea or vomiting. Denies any abdominal pain. Stool studies negative to date. Patient is afebrile. Patient started on Bentyl yesterday, states abdominal cramping improved. Objective - Vital Signs Vital signs: Vital Signs Temp 98.9 F 01/11/22 07:32 Pulse 103 H 01/11/22 07:41 Resp 16 01/11/22 07:32 BP 130/77 01/11/22 07:32 Pulse Ox 95 01/11/22 07:32 Intake & Output 01/10/22 01/11/22 01/11/22 18:59 06:59 18:59 Intake Total 900 340 Balance 900 340 Intake: Intake, IV Titration 900 Amount Sodium Chloride 0.9% 1, 900 000 ml @ 75 mls/hr IV . [id number] [facility] Rx#:[id number] Oral 340 Other: Voiding Method Toilet Bedside Commode Bedside Commode # Voids 1 2 # Bowel Movements 3 2 - Exam General appearance: The patient is alert, oriented, appears in no acute distress. HET: Head is normocephalic and atraumatic. Conjunctiva pink. Sclera anicteric. Neck: Supple without lymphadenopathy. Abdomen: Soft, nontender, nondistended with bowel sounds. No guarding or rigidity. Extremities: Normal skin color and turgor. No pedal edema Skin: No rashes, no jaundice Neurological: No focal deficits. Alert and oriented -3. - Labs CBC & Chem 7: 01/11/22 05:37 01/11/22 05:37 Labs: Microbiology - Last 24 Hours (Table) 01/06/22 15:00 Stool Culture - Final Stool Assessment and Plan (1) Diarrhea Narrative/Plan: 76-year-old female who presented to the emergency department 4 days ago with complaints of ongoing diarrhea over the last 2 weeks duration. Patient reports it is nonbloody, watery diarrhea. Diarrhea is associated with abdominal cramping. She is not having any further nausea or vomiting. Patient was started on IV Rocephin and Flagyl on admission with a mildly elevated WBC. Stool cultures were negative as well as C. difficile toxin. Stool lactoferrin was not collected. She did have a positive occult stool however hemoglobin is been stable. She has been afebrile. CT of abdomen and pelvis shows no bowel obstruction. Abnormal fluid and rectum that could reflect uncomplicated colitis and/or diarrhea. He was also noted she had some moderate biliary dilation for which Gen. surgery was on consult and has signed off with no plans for any surgical intervention. LFTs have been normal since admission. Likely we are dealing with colitis possible infectious. Patient has been on IV antibiotics, will plan on discontinuing Rocephin as Flagyl should be sufficient. Symptoms are improving. No plans on endoscopic evaluation at this time. Will have patient follow-up in outpatient setting and likely proceed with colonoscopy. Current Visit: Yes Status: Acute Code(s): R19.7 - DIARRHEA, UNSPECIFIED SNOMED Code(s): 05043650 (2) Dilated pancreatic duct Narrative/Plan: Normal liver enzymes and bilirubin. No indication for any intervention. Current Visit: Yes Status: Acute Code(s): K86.89 - OTHER SPECIFIED DISEASES OF PANCREAS SNOMED Code(s): 567135090 Plan: 1. Continue symptomatic and supportive care 2. Patient may have regular diet 3. Continue Flagyl 4. Continue Bentyl 5. No Plans on endoscopic evaluation at this time 6. If diarrhea continues to improve, patient may be discharged home on Flagyl. Outpatient follow-up with gastroenterology in 1-2 weeks. Thank you for this consultation, we will continue to follow. Dr. Huy Salguero I agree with the dictator's note, documented as a scribe by Maritza Agudelo.
[2022-01-11 12:01] LABS: Erythrocyte Sedimentation Rate 43 mm/Hr (0-30)
[2022-01-11] MEDS: SODIUM CHLORIDE 0.9% 1,000 ML IV SCH ×2 (12:28→22:45)
--- NOTE | 2022-01-11 16:54 | P.PN ---
Subjective Progress Note Date: 01/11/22 Patient is a 76 yo CF with a hx of arrhythmia s/p ablation, diverticulitis, COPD and HTN who presented to the ED with complaints of 2 weeks of diarrhea. In the ED she was found to be tachycardiac and had a leukocytosis. CT abd and pelvis showed a dilated pancreatic duct and possible colitis with fluid in the rectum. She was admitted and started on IV fluids, Rocephin, and Flagyl. Surgery was consulted. Due to her dilated pancreatic MRCP was ordered which showed possible structure of the pancreatic duct but no pancreatic head mass. Her hemoglobin did drop by 2 g the morning after admission. C. diff was negative. Cultures are pending. She continued to have multiple bowel movements daily and abdominal cramping. Surgery signed off. Interval history Patient seen and examined at bedside. Diet was advanced by GI. Patient denies any abdominal pain. He denies any chest pain or shortness of breath. General: non toxic, no distress, appears at stated age Derm: warm, dry Head: atraumatic, normocephalic, symmetric Eyes: EOMI, no lid lag, anicteric sclera Mouth: no lip lesion, mucus membranes dry Cardiovascular: S1S2 reg, no murmur, positive posterior tibial pulse bilateral, Lungs: Coarse breath sounds bilateral, no rhonchi, no rales , no accessory muscle use Abdominal: soft, nontender to palpation, no guarding, no appreciable organomegaly Ext: no gross muscle atrophy, no edema, no contractures Neuro: CN II-XI grossly intact, no focal neuro deficits Psych: Alert, oriented, appropriate affect Assessment/plan: unclear etiology possible colitis Positive fecal occult blood Nausea vomiting resolved leukocytosis, resolved Dehydration Per GI Continue symptomatic and supportive care Diagnoses advanced per GI Continue Flagyl and Bentyl J discontinue the Rocephin No plans to scope her GI If diarrhea continues to improve, patient may be discharged home on Flagyl. -Outpatient follow-up with gastroenterology in 1-2 weeks. thrombocytosis, resolved oral apthus ulcers - orajel COPD without exacerbation - bronchodilators HTN - lopressor DVT - hx in the past DVT prophylaxis: Lovenox Objective - Vital Signs Vital signs: Vital Signs Temp 97.8 F 01/11/22 12:25 Pulse 92 01/11/22 12:25 Resp 19 01/11/22 12:25 BP 111/62 01/11/22 12:25 Pulse Ox 95 01/11/22 12:25 Intake & Output 01/10/22 01/11/22 01/11/22 18:59 06:59 18:59 Intake Total 900 340 Balance 900 340 Intake: Intake, IV Titration 900 Amount Sodium Chloride 0.9% 1, 900 000 ml @ 75 mls/hr IV . [id number] [facility] Rx#:[id number] Oral 340 Other: Voiding Method Toilet Bedside Commode Bedside Commode Bedside Commode # Voids 1 2 # Bowel Movements 3 2 1 - Labs CBC & Chem 7: 01/11/22 05:37 01/11/22 05:37 Labs: Abnormal Lab Results - Last 24 Hours (Table) 01/06/22 01/11/22 01/11/22 Range/Units 16:28 05:37 05:37 RBC 3.60 L (4.10-5.20) X 10*6/uL Hgb 10.9 L (12.0-15.0) g/dL Hct 33.8 L (37.2-46.3) % MPV 8.8 L (9.5-12.2) fL ESR 43 H (0-30) mm/Hr Carbon Dioxide 18.6 L (20.0-27.5) mmol/L BUN 5.5 L (9.0-27.0) mg/dL BUN/Creatinine Ratio 8.93 L (12.00-20.00) Ratio Calcium 8.4 L (8.7-10.3) mg/dL Total Bilirubin <0.15 L (0.30-1.20) mg/dL Total Protein 4.2 L (6.2-8.2) g/dL Albumin 2.2 L (3.8-4.9) g/dL Albumin/Globulin Ratio 1.13 L (1.60-3.17) g/dL Vitamin A <13 L (38-106) ug/dL
[2022-01-11] MEDS: ENOXAPARIN 40 MG/0.4 ML SYRINGE SQ SCH (17:39)
[2022-01-11 19:36] VITALS: RESP 16
[2022-01-11] MEDS: LORazepam 0.5 MG TAB PO PRN (20:49)
[2022-01-12] MEDS: SYMBICORT 160-4.5 MCG INHALER INHALATION SCH ×2 (08:09→20:17)
[2022-01-12] MEDS: IPRATROPIUM-ALBUTEROL 3 ML NEB INHALATION SCH ×5 (08:09→20:18)
[2022-01-12] MEDS: metroNIDAZOLE 500 MG TAB PO SCH ×3 (08:15→19:50)
[2022-01-12] MEDS: METOPROLOL TARTRATE 25 MG TAB PO SCH ×2 (08:15→19:51)
[2022-01-12] MEDS: DICYCLOMINE 10 MG CAP PO SCH ×4 (08:15→19:51)
[2022-01-12] MEDS: PANTOPRAZOLE 40 MG TABLET PO SCH ×2 (08:15→19:51)
[2022-01-12 09:13] LABS: African American GFR (CKD) >90 (>60 ml/min/1.73 sqM); Blood Urea Nitrogen 6 mg/dL (7-17); Carbon Dioxide 22 mmol/L (22-30); Chloride 105 mmol/L (98-107)
[2022-01-12 09:22] LABS: Anion Gap 8 mmol/L; Calcium 8.2 mg/dL (8.4-10.2); Glucose 125 mg/dL (74-99); Non-African American GFR(CKD) 87 (>60 ml/min/1.73 sqM); Sodium 135 mmol/L (137-145)
[2022-01-12 09:34] LABS: Potassium 2.6 mmol/L (3.5-5.1)
[2022-01-12 09:35] LABS: HGB 12.7 gm/dL (11.4-16.0); MCH 30.9 pg (25.0-35.0); MCHC 32.5 g/dL (31.0-37.0); Mean Platelet Volume 7.7; Platelet Count 393 k/uL (150-450); RDW 13.2 % (11.5-15.5); WBC 10.2 k/uL (3.8-10.6)
[2022-01-12 09:37] LABS: MCV 95.1 fL (80.0-100.0)
[2022-01-12] MEDS ORDERED: Potassium Replacement Protocol 1 EACH MISC MISCELLANE PRN ×3 (09:54→17:04)
[2022-01-12] MEDS: DULoxetine HCL 30 MG CAPSULE.DR PO SCH (10:50)
[2022-01-12] MEDS: POTASSIUM CHLORIDE ER 20 MEQ TAB.ER PO SCH ×5 (10:50→19:50)
--- NOTE | 2022-01-12 12:23 | P.PN ---
Subjective Patient is a 76 yo CF with a hx of arrhythmia s/p ablation, diverticulitis, COPD and HTN who presented to the ED with complaints of 2 weeks of diarrhea. In the ED she was found to be tachycardiac and had a leukocytosis. CT abd and pelvis showed a dilated pancreatic duct and possible colitis with fluid in the rectum. She was admitted and started on IV fluids, Rocephin, and Flagyl. Surgery was consulted. Due to her dilated pancreatic MRCP was ordered which showed possible structure of the pancreatic duct but no pancreatic head mass. Her hemoglobin did drop by 2 g the morning after admission. C. diff was negative. Cultures are pending. She continued to have multiple bowel movements daily and abdominal cramping. Surgery signed off. Interval history Patient seen and examined at bedside. Diet was advanced by GI yesterday and tolerated. Patient is to have intermittent episodes of diarrhea but is improving. Potassium came low at 2.7 General: non toxic, no distress, appears at stated age Derm: warm, dry Head: atraumatic, normocephalic, symmetric Eyes: EOMI, no lid lag, anicteric sclera Mouth: no lip lesion, mucus membranes dry Cardiovascular: S1S2 reg, no murmur, positive posterior tibial pulse bilateral, Lungs: Coarse breath sounds bilateral, no rhonchi, no rales , no accessory muscle use Abdominal: soft, nontender to palpation, no guarding, no appreciable organomegaly Ext: no gross muscle atrophy, no edema, no contractures Neuro: CN II-XI grossly intact, no focal neuro deficits Psych: Alert, oriented, appropriate affect Assessment/plan: unclear etiology possible colitis Positive fecal occult blood Nausea vomiting resolved leukocytosis, resolved Dehydration Per GI Continue symptomatic and supportive care Diagnoses advanced per GI Continue Flagyl and Bentyl GI discontinue the Rocephin No plans to scope her GI If diarrhea continues to improve, patient may be discharged home on Flagyl. -Outpatient follow-up with gastroenterology in 1-2 weeks. Hypokalemia -Replaced thrombocytosis, resolved oral apthus ulcers - orajel COPD without exacerbation - bronchodilators HTN - lopressor DVT - hx in the past DVT prophylaxis: Lovenox Objective - Vital Signs Vital signs: Vital Signs Temp 98.2 F 01/12/22 08:00 Pulse 81 01/12/22 10:07 Resp 16 01/12/22 02:39 BP 140/87 01/12/22 08:00 Pulse Ox 93 L 01/12/22 08:00 Intake & Output 01/11/22 01/12/22 01/12/22 18:59 06:59 18:59 Output Total 3 3 Balance -3 -3 Output: Stool 3 3 Other: Voiding Method Bedside Commode Bedside Commode # Voids 2 1 # Bowel Movements 3 1 - Labs CBC & Chem 7: 01/12/22 08:44 01/12/22 08:44 Labs: Abnormal Lab Results - Last 24 Hours (Table) 01/12/22 Range/Units 08:44 Sodium 135 L (137-145) mmol/L Potassium 2.6 L* (3.5-5.1) mmol/L BUN 6 L (7-17) mg/dL Glucose 125 H (74-99) mg/dL Calcium 8.2 L (8.4-10.2) mg/dL
[2022-01-12 12:47] VITALS: BMI 30.4
[2022-01-12 12:55] LABS: Band Neutrophils % 5 %; Lymphocytes # (M) 0.71 k/uL (1.0-4.8); Monocytes # (M) 0.71 k/uL (0-1.0); Neutrophils % (M) 81 %; Nucleated Red Blood Cells 0 /100 WBC (0-0); Total Cells Counted 100; Toxic Granulation Present
[2022-01-12] MEDS: ACETAMINOPHEN TAB 325 MG TAB PO PRN (13:08)
[2022-01-12] MEDS ORDERED: PROCHLORPERAZINE 5 MG TAB PO PRN (13:57)
--- NOTE | 2022-01-12 15:24 | P.PN ---
Subjective Progress Note Date: 01/12/22 Principal diagnosis: Diarrhea This is a 76-year-old female seen today as a follow-up for consult for acute diarrhea for last 2 weeks duration. Patient had been started on Rocephin and Flagyl. Symptoms are improving. Actually had one loose stool this morning. Rocephin was discontinued yesterday, patient continues on Flagyl. She is afebrile. She denies any nausea or vomiting. Denies any abdominal pain. Stool studies negative to date. Patient is afebrile. Patient started on Bentyl, cramping and bloating have improved. Diarrhea is improving. She had 2 small loose stools this morning. Objective - Vital Signs Vital signs: Vital Signs Temp 98.1 F 01/12/22 13:00 Pulse 101 H 01/12/22 13:00 Resp 16 01/12/22 02:39 BP 134/83 01/12/22 13:00 Pulse Ox 93 L 01/12/22 13:00 Intake & Output 01/11/22 01/12/22 01/12/22 18:59 06:59 18:59 Output Total 3 3 Balance -3 -3 Weight 70.76 kg Output: Stool 3 3 Other: Voiding Method Bedside Commode Bedside Commode # Voids 2 1 # Bowel Movements 3 1 - Exam General appearance: The patient is alert, oriented, appears in no acute distress. HET: Head is normocephalic and atraumatic. Conjunctiva pink. Sclera anicteric. Neck: Supple without lymphadenopathy. Abdomen: Soft, nontender, nondistended with bowel sounds. No guarding or rigidity. Extremities: Normal skin color and turgor. No pedal edema Skin: No rashes, no jaundice Neurological: No focal deficits. Alert and oriented -3. - Labs CBC & Chem 7: 01/12/22 08:44 01/12/22 08:44 Labs: Abnormal Lab Results - Last 24 Hours (Table) 01/12/22 01/12/22 Range/Units 08:44 08:44 Neutrophils # (Manual) 8.70 H (1.3-7.7) k/uL Lymphocytes # (Manual) 0.71 L (1.0-4.8) k/uL Sodium 135 L (137-145) mmol/L Potassium 2.6 L* (3.5-5.1) mmol/L BUN 6 L (7-17) mg/dL Glucose 125 H (74-99) mg/dL Calcium 8.2 L (8.4-10.2) mg/dL Assessment and Plan (1) Diarrhea Narrative/Plan: 76-year-old female who presented to the emergency department 4 days ago with complaints of ongoing diarrhea over the last 2 weeks duration. Patient reports it is nonbloody, watery diarrhea. Diarrhea is associated with abdominal cramping. She is not having any further nausea or vomiting. Patient was started on IV Rocephin and Flagyl on admission with a mildly elevated WBC. Stool cultures were negative as well as C. difficile toxin. Stool lactoferrin was not collected. She did have a positive occult stool however hemoglobin is been stable. She has been afebrile. CT of abdomen and pelvis shows no bowel obstruction. Abnormal fluid and rectum that could reflect uncomplicated colitis and/or diarrhea. He was also noted she had some moderate biliary dilation for which Gen. surgery was on consult and has signed off with no plans for any surgical intervention. LFTs have been normal since admission. Likely we are dealing with colitis possible infectious. Patient has been on IV antibiotics, will plan on discontinuing Rocephin as Flagyl should be sufficient. Symptoms are improving. No plans on endoscopic evaluation at this time. Will have patient follow-up in outpatient setting and likely proceed with colonoscopy. Current Visit: Yes Status: Acute Code(s): R19.7 - DIARRHEA, UNSPECIFIED SNOMED Code(s): 80359961 (2) Dilated pancreatic duct Narrative/Plan: Normal liver enzymes and bilirubin. No indication for any intervention. Current Visit: Yes Status: Acute Code(s): K86.89 - OTHER SPECIFIED DISEASES OF PANCREAS SNOMED Code(s): 278366326 Plan: 1. Continue symptomatic and supportive care 2. Patient may have regular diet 3. Continue Flagyl 4. Continue Bentyl 5. No Plans on endoscopic evaluation at this time 6. Patient is cleared for discharge from gastroenterology Thank you for this consultation, we will sign off at this time. Dr. Huy Salguero I agree with the dictator's note, documented as a scribe by Maritza Agudelo.
[2022-01-12] MEDS: ENOXAPARIN 40 MG/0.4 ML SYRINGE SQ SCH (16:52)
[2022-01-12] MEDS: LORazepam 0.5 MG TAB PO PRN (19:57)
[2022-01-13] MEDS: DICYCLOMINE 10 MG CAP PO SCH ×2 (07:24→12:12)
[2022-01-13] MEDS: PANTOPRAZOLE 40 MG TABLET PO SCH (07:24)
[2022-01-13] MEDS: METOPROLOL TARTRATE 25 MG TAB PO SCH (07:24)
[2022-01-13] MEDS: metroNIDAZOLE 500 MG TAB PO SCH (07:24)
[2022-01-13] MEDS: DULoxetine HCL 30 MG CAPSULE.DR PO SCH (07:24)
[2022-01-13] MEDS: ACETAMINOPHEN TAB 325 MG TAB PO PRN (07:29)
[2022-01-13] MEDS: SYMBICORT 160-4.5 MCG INHALER INHALATION SCH (08:20)
[2022-01-13] MEDS: IPRATROPIUM-ALBUTEROL 3 ML NEB INHALATION SCH ×2 (08:20→11:52)
[2022-01-13 10:38] LABS: African American GFR (CKD) 101.2 (60.0-200.0); Anion Gap 8.2 mmol/L (10.00-18.00); BUN/Creat Ratio 10.17 Ratio (12.00-20.00); Blood Urea Nitrogen 6.1 mg/dL (9.0-27.0); Calcium 8.4 mg/dL (8.7-10.3); Carbon Dioxide 20.8 mmol/L (20.0-27.5); Non-African American GFR(CKD) 87.3 (60.0-200.0); Potassium 3.7 mmol/L (3.5-5.5)
[2022-01-13] MEDS ORDERED: Potassium Replacement Protocol 1 EACH MISC MISCELLANE PRN (11:44)
[2022-01-13] MEDS ORDERED: POTASSIUM CHLORIDE ER 20 MEQ TAB.ER PO SCH (12:00)
--- NOTE | 2022-01-13 12:29 | P.DS ---
Providers Date of admission: 01/07/22 11:56 Expected date of discharge: 01/13/22 Attending physician: Triny Argueta DO Consults: 01/06/22 15:49 Consult Physician Routine Consulting Provider: César Hewitt Consult Reason/Comments: pancreatic duct dilation Do you want consulting provider notified?: Yes Primary care physician: [facility] Course: Patient is a 76 yo CF with a hx of arrhythmia s/p ablation, diverticulitis, COPD and HTN who presented to the ED with complaints of 2 weeks of diarrhea. In the ED she was found to be tachycardiac and had a leukocytosis. CT abd and pelvis showed a dilated pancreatic duct and possible colitis with fluid in the rectum. She was admitted and started on IV fluids, Rocephin, and Flagyl. Surgery was consulted. Due to her dilated pancreatic MRCP was ordered which showed possible structure of the pancreatic duct but no pancreatic head mass. Her hemoglobin did drop by 2 g the morning after admission. C. diff was negative. Cultures are pending. She continued to have multiple bowel movements daily and abdominal cramping. Surgery signed off. Interval history Patient seen and examined at bedside. Diet was advanced by GI yesterday and tolerated. Patient is to have intermittent episodes of diarrhea but is improving. Potassium came low at 2.7 General: non toxic, no distress, appears at stated age Derm: warm, dry Head: atraumatic, normocephalic, symmetric Eyes: EOMI, no lid lag, anicteric sclera Mouth: no lip lesion, mucus membranes dry Cardiovascular: S1S2 reg, no murmur, positive posterior tibial pulse bilateral, Lungs: Coarse breath sounds bilateral, no rhonchi, no rales , no accessory muscle use Abdominal: soft, nontender to palpation, no guarding, no appreciable organomegaly Ext: no gross muscle atrophy, no edema, no contractures Neuro: CN II-XI grossly intact, no focal neuro deficits Psych: Alert, oriented, appropriate affect Assessment/plan: Diarrhea unclear etiology possible colitis Positive fecal occult blood Nausea vomiting resolved leukocytosis, resolved Dehydration Per GI Continue symptomatic and supportive care Diet advanced and tolerated Continue Flagyl and Bentyl GI discontinued the Rocephin No plans to scope her GI -Outpatient follow-up with gastroenterology in 1-2 weeks. Hypokalemia -Replaced thrombocytosis, resolved oral apthus ulcers - orajel COPD without exacerbation - bronchodilators HTN - lopressor Patient Condition at Discharge: Stable Plan - Discharge Summary Discharge Rx Participant: No New Discharge Prescriptions: New metroNIDAZOLE [Flagyl] 500 mg PO TID 7 Days #21 tab Dicyclomine [Bentyl] 10 mg PO QID 30 Days #120 cap Continue Albuterol Sulfate [Albuterol Sulfate Hfa] 2 puff INHALATION RT-QID PRN PRN Reason: Shortness Of Breath Ipratropium-Albuterol Nebulize [Duoneb 0.5 mg-3 mg/3 ml Soln] 3 ml INHALATION RT-QID Discontinued Budesonide/Formoterol Fumarate [Symbicort 160-4.5 Mcg Inhaler] 2 puff INHALATION RT-BID No Action Vitamin E (Dl,Tocopheryl Acet) [Vitamin E (400 Iu = 180 mg)] 400 units PO DAILY Ascorbic Acid [Vitamin C] 2,000 mg PO DAILY Potassium Chloride [K-Tab ER] 20 meq PO DAILY Stoneham-3 Fatty Acids [[place]-3] 1,000 mg PO DAILY LORazepam [Ativan] 0.5 mg PO Q6H PRN PRN Reason: Anxiety Torsemide [Demadex] 20 mg PO DAILY Metoprolol Tartrate [Lopressor] 25 mg PO BID Aspirin [Adult Low Dose Aspirin EC] 81 mg PO DAILY DULoxetine HCL [Cymbalta] 30 mg PO DAILY Naproxen Sodium [Aleve] 440 mg PO Q12H PRN PRN Reason: Pain Calcium Carbonate/Vitamin D3 [Calcium 500-Vit D3 5 Mcg (200 Iu)] 1 tab PO DAILY Cholecalciferol [Vitamin D3 (25 Mcg = 1000 Iu)] 50 mcg PO DAILY Diphenox-Atrop 2.5-0.025 mg [Lomotil] 2 tab PO QID Discharge Medication List Ascorbic Acid [Vitamin C] 2,000 mg PO DAILY 06/14/18 [History] Aspirin [Adult Low Dose Aspirin EC] 81 mg PO DAILY 06/14/18 [History] DULoxetine HCL [Cymbalta] 30 mg PO DAILY 06/14/18 [History] LORazepam [Ativan] 0.5 mg PO Q6H PRN 06/14/18 [History] Metoprolol Tartrate [Lopressor] 25 mg PO BID 06/14/18 [History] [place]-3 Fatty Acids [[place]-3] 1,000 mg PO DAILY 06/14/18 [History] Potassium Chloride [K-Tab ER] 20 meq PO DAILY 06/14/18 [History] Torsemide [Demadex] 20 mg PO DAILY 06/14/18 [History] Vitamin E (Dl,Tocopheryl Acet) [Vitamin E (400 Iu = 180 mg)] 400 units PO DAILY 06/14/18 [History] Naproxen Sodium [Aleve] 440 mg PO Q12H PRN 12/16/18 [History] Albuterol Sulfate [Albuterol Sulfate Hfa] 2 puff INHALATION RT-QID PRN 01/06/22 [History] Calcium Carbonate/Vitamin D3 [Calcium 500-Vit D3 5 Mcg (200 Iu)] 1 tab PO DAILY 01/06/22 [History] Cholecalciferol [Vitamin D3 (25 Mcg = 1000 Iu)] 50 mcg PO DAILY 01/06/22 [History] Diphenox-Atrop 2.5-0.025 mg [Lomotil] 2 tab PO QID 01/06/22 [History] Ipratropium-Albuterol Nebulize [Duoneb 0.5 mg-3 mg/3 ml Soln] 3 ml INHALATION RT-QID 01/06/22 [History] Dicyclomine [Bentyl] 10 mg PO QID 30 Days #120 cap 01/13/22 [Rx] metroNIDAZOLE [Flagyl] 500 mg PO TID 7 Days #21 tab 01/13/22 [Rx] Follow up Appointment(s)/Referral(s): Shoaib Strauss MD [Primary Care Provider] - 1-2 days Oralia Salguero MD [STAFF PHYSICIAN] - 2 Weeks Discharge Disposition: TRANSFER TO SNF/ECF
[2022-01-13 15:04] VITALS: BP 108/79; PULSE 93; TEMP 98.1
== END 2022-01-13 15:45 | DRG 392 ==
LOC: EC 07:41 → 6NMEDSUR 12:28 → OBSVTOIN 01-07 11:56 → 5NMEDONC 01-09 16:52 → 4SSUR 01-11 18:17
PROVIDERS: ADMIT Internal Medicine; ATTEND Internal Medicine
DX: A09 Infectious gastroenteritis and colitis, unspecified (principal); D75.839 Thrombocytosis, unspecified; E86.0 Dehydration; E87.6 Hypokalemia; F32.A Depression, unspecified; F41.9 Anxiety disorder, unspecified; I10 Essential (primary) hypertension; I48.91 Unspecified atrial fibrillation; J44.9 Chronic obstructive pulmonary disease, unspecified; K86.89 Other specified diseases of pancreas; Z79.51 Long term (current) use of inhaled steroids; Z79.82 Long term (current) use of aspirin; Z79.899 Other long term (current) drug therapy; Z80.0 Family history of malignant neoplasm of digestive organs; Z87.891 Personal history of nicotine dependence; Z90.49 Acquired absence of other specified parts of digestive tract; Z90.710 Acquired absence of both cervix and uterus; Z93.3 Colostomy status; Z91.09 Other allergy status, other than to drugs and biological substances; Z20.822 Contact with and (suspected) exposure to COVID-19
CPT/HCPCS: 36415; 74177; 74183; 80048; 80053; 81001; 82150; 82272; 82306; 83605; 83690; 83735; 83993; 84100; 84132; 84484; 84590; 85025; 85027; 85652; 87045; 87046; 87324; 87493; 87502; 87635; 93005; 94640; 94760; 96361; 96365; 96366; 96375; 99285

== ENCOUNTER 2022-02-11 10:08 | Inpatient (IN) | payer MEDICARE, BC ==
[2022-02-11] MEDS ORDERED: KETOROLAC 15 MG/ML 1 ML VIAL IM STA (10:21)
[2022-02-11] MEDS ORDERED: SODIUM CHLORIDE 0.9% 1,000 ML IV STA ×2 (10:38→14:39)
[2022-02-11] MEDS ORDERED: SODIUM CHLORIDE 0.9% 500 ML 500 ML IV STA (10:38)
--- NOTE | 2022-02-11 11:01 | XR ---
EXAMINATION TYPE: XR chest 2V DATE OF EXAM: 02/11/2022 COMPARISON: Chest x-ray February 26, 2013. CTA chest September 08, 2015 HISTORY: Hypotension. TECHNIQUE: Frontal and lateral views of the chest are obtained. FINDINGS: Background chronic emphysematous changes redemonstrated. There is no suspicious focal air space opacity, pleural effusion, or pneumothorax seen. The cardiac silhouette size remains within no rmal limits. Bilateral hilar prominence consistent with underlying pulmonary artery hypertension is p resent. Degenerative change bilateral glenohumeral joints redemonstrated. IMPRESSION: Chronic changes without acute pulmonary process.
--- NOTE | 2022-02-11 11:02 | XR ---
EXAMINATION TYPE: XR KUB DATE OF EXAM: 02/11/2022 10:54 AM CLINICAL HISTORY: Diarrhea. TECHNIQUE: Single supine KUB image of the abdomen is obtained. COMPARISON: CT abdomen and pelvis January 06, 2022. FINDINGS: Some paucity of small bowel gas. Gas and fecal material seen in nondistended colon. Moderat e right-sided colonic fecal prominence. Cholecystectomy clips are redemonstrated. Scoliosis with mult ilevel disc space narrowing in the spine.. IMPRESSION: Overall nonspecific but favor nonobstructive bowel gas pattern. Moderate to severe proxim al colonic fecal stasis is felt present currently.
--- NOTE | 2022-02-11 11:05 | ED ---
Dizziness HPI - General Chief Complaint: Dizziness Stated Complaint: Hypotension Time Seen by Provider: 02/11/22 10:20 Source: patient, EMS, RN notes reviewed Mode of arrival: EMS Limitations: no limitations - History of Present Illness Initial Comments: 68-year-old female brought in by EMS because of dizziness she's had diarrhea for quite a while she states she feels dehydrated she was found be hypotensive was given a fluid challenge by EMS with some improvement in her blood pressure. She denies any chest pain no palpitations he ears chills some nausea. No palpitations no other complaints or modifying factors at this time MD Complaint: dizziness, lightheadedness - Related Data Home Medications Medication Instructions Recorded Confirmed Ascorbic Acid [Vitamin C] 1,000 mg PO DAILY@169906/14/18 02/11/22 Aspirin [Adult Low Dose Aspirin EC] 81 mg PO DAILY@169906/14/18 02/11/22 DULoxetine HCL [Cymbalta] 30 mg PO DAILY 06/14/18 02/11/22 Metoprolol Tartrate [Lopressor] 25 mg PO BID 06/14/18 02/11/22 [place]-3 Fatty Acids [[place]-3] 1,000 mg PO DAILY@169906/14/18 02/11/22 Potassium Chloride [K-Tab ER] 20 meq PO DAILY@169906/14/18 02/11/22 Vitamin E (Dl,Tocopheryl Acet) 400 units PO BID 06/14/18 02/11/22 [Vitamin E (400 Iu = 180 mg)] Naproxen Sodium [Aleve] 440 mg PO Q12H PRN 12/16/18 02/11/22 Albuterol Sulfate [Albuterol 2 puff INHALATION RT-QID PRN 01/06/22 02/11/22 Sulfate Hfa] Calcium Carbonate/Vitamin D3 1 tab PO DAILY@169901/06/22 02/11/22 [Calcium 500-Vit D3 5 Mcg (200 Iu)] Cholecalciferol [Vitamin D3 (25 50 mcg PO DAILY@169901/06/22 02/11/22 Mcg = 1000 Iu)] Ipratropium-Albuterol Nebulize 3 ml INHALATION RT-QID 01/06/22 02/11/22 [Duoneb 0.5 mg-3 mg/3 ml Soln] Furosemide [Lasix] 20 mg PO DAILY 02/11/22 02/11/22 Previous Rx's Medication Instructions Recorded Budesonide-Formot 160-4.5 Mcg 2 puff INHALATION RT-BID gm 01/13/22 [Symbicort 160-4.5 Mcg Inhaler] Dicyclomine [Bentyl] 10 mg PO QID 30 Days #120 cap 01/13/22 LORazepam [Ativan] 0.5 mg PO Q6H PRN 2 Days #8 tab 01/13/22 Pantoprazole [Protonix] 40 mg PO DAILY 30 Days #30 tab 01/13/22 Allergies Allergy/AdvReac Type Severity Reaction Status Date / Time ergocalciferol (vitamin D2) Allergy Rash/Hives Verified 02/11/22 15:03 [From Vitamin D2] Review of Systems ROS Statement: Those systems with pertinent positive or pertinent negative responses have been documented in the HPI. ROS Other: All systems not noted in ROS Statement are negative. Past Medical History Past Medical History: COPD, Deep Vein Thrombosis (DVT), GERD/Reflux, Hypertension, Osteoarthritis (OA) Additional Past Medical History / Comment(s): hx- diverticulitis, sciatica left side. History of Any Multi-Drug Resistant Organisms: None Reported Past Surgical History: Bladder Surgery, Bowel Resection, Cardiac Ablation, Ch olecystectomy, Heart Catheterization, Heart Catheterization With Stent, Hysterectomy Additional Past Surgical History / Comment(s): Bladder suspension, lt knee x2 arthroscopic, PAIN CLINIC PROCEDURES, LB CATARACT, one cardiac stent, bowel resection with colostomy/later reversal Past Anesthesia/Blood Transfusion Reactions: Motion Sickness Date of Last Stent Placement:: 2010 Past Psychological History: Anxiety, Depression Smoking Status: Former smoker Past Alcohol Use History: Daily Past Drug Use History: None Reported - Past Family History Sister(s) Family Medical History: Cancer Additional Family Medical History / Comment(s): rectal cancer General Exam - General Exam Comments Initial Comments: This is a well-developed well-nourished awake alert oriented 3 female Limitations: no limitations General appearance: anxious Head exam: Present: atraumatic, normocephalic, normal inspection Eye exam: Present: normal appearance, PERRL, EOMI. Absent: scleral icterus, co njunctival injection, periorbital swelling ENT exam: Present: mucous membranes dry Neck exam: Present: normal inspection. Absent: tenderness, meningismus, lymphadenopathy Respiratory exam: Present: normal lung sounds bilaterally. Absent: respiratory distress, wheezes, rales, rhonchi, stridor Cardiovascular Exam: Present: normal rhythm, tachycardia, normal heart sounds. Absent: systolic murmur, diastolic murmur, rubs, gallop, clicks GI/Abdominal exam: Present: soft, normal bowel sounds. Absent: distended, tenderness, guarding, rebound, rigid Extremities exam: Present: normal inspection, full ROM, normal capillary refill. Absent: tenderness, pedal edema, joint swelling, calf tenderness Back exam: Present: normal inspection Neurological exam: Present: alert, oriented X3, CN II-XII intact Psychiatric exam: Present: normal affect, normal mood Skin exam: Present: warm, dry, intact, normal color. Absent: rash Course Vital Signs 02/11/22 02/11/22 02/11/22 10:09 10:28 11:02 Temperature 97.9 F Pulse Rate 118 H 101 H Pulse Rate [ 118 H Right Supine Radial] Respiratory 18 18 Rate Blood Pressure 87/62 94/63 O2 Sat by Pulse 97 96 Oximetry 02/11/22 02/11/22 02/11/22 11:37 12:00 12:42 Temperature Pulse Rate 90 90 Pulse Rate [ Right Supine Radial] Respiratory 14 15 Rate Blood Pressure 93/60 87/61 99/61 O2 Sat by Pulse 97 Oximetry 02/11/22 02/11/22 13:00 14:00 Temperature Pulse Rate 87 86 Pulse Rate [ Right Supine Radial] Respiratory 15 16 Rate Blood Pressure 80/54 89/50 O2 Sat by Pulse 92 L Oximetry Medical Decision Making - Medical Decision Making I did discuss findings with the patient she remains tachycardic and hypotensive in spite of fluids patient will be admitted I did discuss case with Dr. Jordan - Lab Data Result diagrams: 02/11/22 10:53 02/11/22 10:53 Lab Results 02/11/22 02/11/22 02/11/22 Range/Units 10:53 10:53 10:53 WBC 16.9 H (3.8-10.6) k/uL RBC 4.23 (3.80-5.40) m/uL Hgb 12.2 (11.4-16.0) gm/dL Hct 40.0 (34.0-46.0) % MCV 94.4 (80.0-100.0) fL MCH 28.9 (25.0-35.0) pg MCHC 30.6 L (31.0-37.0) g/dL RDW 15.7 H (11.5-15.5) % Plt Count 545 H (150-450) k/uL MPV 7.2 Neutrophils % (Manual) 82 % Band Neuts % (Manual) 4 % Lymphocytes % (Manual) 7 % Monocytes % (Manual) 8 % Myelocytes % 1 % Neutrophils # (Manual) 14.50 H (1.3-7.7) k/uL Lymphocytes # (Manual) 1.18 (1.0-4.8) k/uL Monocytes # (Manual) 1.35 H (0-1.0) k/uL Myelocytes # (Manual) 0.17 H (0) k/uL Nucleated RBCs 0 (0-0) /100 WBC Manual Slide Review Performed Toxic Granulation Present Hypochromasia Slight Sodium 130 L (137-145) mmol/L Potassium 4.9 (3.5-5.1) mmol/L Chloride 96 L (98-107) mmol/L Carbon Dioxide 26 (22-30) mmol/L Anion Gap 8 mmol/L BUN 31 H (7-17) mg/dL Creatinine 1.63 H (0.52-1.04) mg/dL Est GFR (CKD-EPI)AfAm 35 (>60 ml/min/1.73 sqM) Est GFR (CKD-EPI)NonAf 30 (>60 ml/min/1.73 sqM) Glucose 99 (74-99) mg/dL Calcium 8.6 (8.4-10.2) mg/dL Magnesium 1.6 (1.6-2.3) mg/dL Total Bilirubin 0.8 (0.2-1.3) mg/dL AST 23 (14-36) U/L ALT 12 (4-34) U/L Alkaline Phosphatase 103 (38-126) U/L Creatine Kinase 56 (30-135) U/L Troponin I 0.018 (0.000-0.034) ng/mL Total Protein 5.8 L (6.3-8.2) g/dL Albumin 2.4 L (3.5-5.0) g/dL Lipase 20 L (23-300) U/L - EKG Data -: EKG Interpreted by Me EKG shows normal: sinus rhythm EKG Comments: Sinus tachycardia rate 114. Interval 164 QRS 90 QT since QTC 321/389 borderline axis deviation nonspecific ST configuration some artifact present - Radiology Data Radiology results: report reviewed (Imaging reviewed as well as reports x-ray is unremarkable as far as a chest he be shows increased stool burden otherwise nonspecific), image reviewed Disposition Clinical Impression: Dehydration, Tachycardia, Hypotension, Diarrhea Disposition: ADMITTED IP TO THIS [facility] Condition: Fair Referrals: Shoaib Strauss MD [Primary Care Provider] - 1-2 days Decision Date: 02/11/22 Decision Time: 15:15
[2022-02-11 11:14] LABS: HGB 12.2 gm/dL (11.4-16.0); Hypochromasia Slight; MCH 28.9 pg (25.0-35.0); MCHC 30.6 g/dL (31.0-37.0); MCV 94.4 fL (80.0-100.0); Mean Platelet Volume 7.2; Platelet Count 545 k/uL (150-450); RBC 4.23 m/uL (3.80-5.40); RDW 15.7 % (11.5-15.5); WBC 16.9 k/uL (3.8-10.6)
[2022-02-11 11:25] LABS: Albumin 2.4 g/dL (3.5-5.0); Calcium 8.6 mg/dL (8.4-10.2); Magnesium 1.6 mg/dL (1.6-2.3); Potassium 4.9 mmol/L (3.5-5.1); Total Bilirubin 0.8 mg/dL (0.2-1.3); Total Protein 5.8 g/dL (6.3-8.2)
[2022-02-11 12:58] LABS: Band Neutrophils % 4 %; Lymphocytes # (M) 1.18 k/uL (1.0-4.8); Monocytes # (M) 1.35 k/uL (0-1.0); Myelocytes # (M) 0.17 k/uL (0); Myelocytes % 1 %; Neutrophils % (M) 82 %; Nucleated Red Blood Cells 0 /100 WBC (0-0); Total Cells Counted 200
[2022-02-11 12:59] LABS: Toxic Granulation Present
[2022-02-11] MEDS ORDERED: NALOXONE 0.4 MG/ML 1 ML VIAL IV PRN (15:15)
[2022-02-11] MEDS ORDERED: NAPROXEN 250 MG TAB PO PRN (15:17)
[2022-02-11 15:47] LABS: Appearance,Urine Clear (Clear); Bilirubin,Urine Negative (Negative); Blood,Urine Negative (Negative); Color,Urine Yellow; Glucose,Urine (UA) Negative (Negative); Ketones,Urine Negative (Negative); Leukocyte Esterase,Urine Negative (Negative); Nitrite,Urine Negative (Negative); Protein,Urine Negative (Negative); Specific Gravity,Urine 1.009 (1.001-1.035); Urobilinogen,Urine <2.0 mg/dL (<2.0)
[2022-02-11] MEDS: IPRATROPIUM-ALBUTEROL 3 ML NEB INHALATION SCH ×2 (16:35→20:17)
[2022-02-11] MEDS ORDERED: NON FORMULARY DRUG (Omega-3 Fatty Acids [Omega-3] 1,000 MG Capsule) PO SCH (17:00)
[2022-02-11] MEDS: CALCIUM CARB-VIT D 500 MG-5 MCG TAB PO SCH (19:04)
[2022-02-11] MEDS: ASPIRIN 81 MG PO SCH (19:04)
[2022-02-11] MEDS: ASCORBIC ACID 500 MG TAB PO SCH (19:04)
[2022-02-11] MEDS: CHOLECALCIFEROL 25 MCG (1000 IU) TABLET PO SCH (19:04)
[2022-02-11] MEDS: DICYCLOMINE 10 MG CAP PO SCH ×2 (19:04→21:23)
[2022-02-11] MEDS: POTASSIUM CHLORIDE ER 20 MEQ TAB.ER PO SCH (19:04)
[2022-02-11] MEDS: SYMBICORT 160-4.5 MCG INHALER INHALATION SCH (20:17)
[2022-02-11] MEDS: VITAMIN E (DL,TOCOPHERYL ACET) 400 UNIT (180 MG) CAP PO SCH (21:21)
[2022-02-11] MEDS: METOPROLOL TARTRATE 25 MG TAB PO SCH (21:23)
--- NOTE | 2022-02-11 22:42 | P.HPIM ---
History of Present Illness H&P Date: 02/11/22 Chief Complaint: Diarrhea Patient is a 76-year-old female with a known history of COPD, hypertension, GERD, history of DVT, coronary artery disease history of stent placement, anxiety/depression and previous history of smoking and daily alcohol use presents to ER with complaints of dizziness. Patient has been having diarrhea for the past couple of months and was in the hospital previously patient was sent to Rehab and was recently discharged home. Patient still has been having loose stool. However denies any complaints of abdominal pain. No chest pain or shortness of breath. No nausea or vomiting. On admission patient was found to be hypotensive with blood pressure 87/62 pulse is 118 respiration 18 and pulse ox 97% on room air Chest x-ray showed chronic changes without acute pulmonary process. KUB x-ray showed overall nonspecific but favored nonobstructive bowel gas pattern. Moderate to severe proximal chronic fecal stasis is felt present currently. EKG showed sinus tachycardia Laboratory showed WBC 16.9 hemoglobin 12.2 and platelets 545 Sodium 130 potassium 4.9 chloride 96 BUN 31 and creatinine 1.63 and lipase 20 albumin 2.4 Urinalysis is negative for infection. Review of Systems Constitutional: Patient denies any fever or chills . No generalized weakness or weight loss. Abdomen patient has diarrhea. No abdominal pain. No nausea vomiting. Cardiovascular: Patient denies any chest pain or short of breath no palp itations. Respiratory: patient denied any cough or sputum production. No shortness of breath Neurologic: Patient denied any numbness or tingling headache. Musculoskeletal: Patient denies any complaints of joint swelling or deformity. Skin: Negative Psychiatric: Negative Endocrine: No heat or cold intolerance. No recent weight gain. Genitourinary: No dysuria or hematuria. All other 14 point ROS negative except the above Past Medical History Past Medical History: COPD, Deep Vein Thrombosis (DVT), GERD/Reflux, Hypertension, Osteoarthritis (OA) Additional Past Medical History / Comment(s): hx- diverticulitis, sciatica left side. History of Any Multi-Drug Resistant Organisms: None Reported Past Surgical History: Bladder Surgery, Bowel Resection, Cardiac Ablation, Cholecystectomy, Heart Catheterization, Heart Catheterization With Stent, Hysterectomy Additional Past Surgical History / Comment(s): Bladder suspension, lt knee x2 arthroscopic, PAIN CLINIC PROCEDURES, LB CATARACT, one cardiac stent, bowel resection with colostomy/later reversal Past Anesthesia/Blood Transfusion Reactions: Motion Sickness Date of Last Stent Placement:: 2010 Past Psychological History: Anxiety, Depression Smoking Status: Former smoker Past Alcohol Use History: Daily Past Drug Use History: None Reported - Past Family History Sister(s) Family Medical History: Cancer Additional Family Medical History / Comment(s): rectal cancer Medications and Allergies Home Medications Medication Instructions Recorded Confirmed Type Ascorbic Acid [Vitamin C] 1,000 mg PO DAILY@169906/14/18 02/11/22 History Aspirin [Adult Low Dose Aspirin EC] 81 mg PO DAILY@169906/14/18 02/11/22 History DULoxetine HCL [Cymbalta] 30 mg PO DAILY 06/14/18 02/11/22 History Metoprolol Tartrate [Lopressor] 25 mg PO BID 06/14/18 02/11/22 History [place]-3 Fatty Acids [[place]-3] 1,000 mg PO DAILY@169906/14/18 02/11/22 History Potassium Chloride [K-Tab ER] 20 meq PO DAILY@169906/14/18 02/11/22 History Vitamin E (Dl,Tocopheryl Acet) 400 units PO BID 06/14/18 02/11/22 History [Vitamin E (400 Iu = 180 mg)] Naproxen Sodium [Aleve] 440 mg PO Q12H PRN 12/16/18 02/11/22 History Albuterol Sulfate [Albuterol 2 puff INHALATION RT-QID PRN 01/06/22 02/11/22 History Sulfate Hfa] Calcium Carbonate/Vitamin D3 1 tab PO DAILY@169901/06/22 02/11/22 History [Calcium 500-Vit D3 5 Mcg (200 Iu)] Cholecalciferol [Vitamin D3 (25 50 mcg PO DAILY@169901/06/22 02/11/22 History Mcg = 1000 Iu)] Ipratropium-Albuterol Nebulize 3 ml INHALATION RT-QID 01/06/22 02/11/22 History [Duoneb 0.5 mg-3 mg/3 ml Soln] Budesonide-Formot 160-4.5 Mcg 2 puff INHALATION RT-BID gm 01/13/22 02/11/22 Rx [Symbicort 160-4.5 Mcg Inhaler] Dicyclomine [Bentyl] 10 mg PO QID 30 Days #120 cap 01/13/22 02/11/22 Rx LORazepam [Ativan] 0.5 mg PO Q6H PRN 2 Days #8 tab 01/13/22 02/11/22 Rx Pantoprazole [Protonix] 40 mg PO DAILY 30 Days #30 tab 01/13/22 02/11/22 Rx Furosemide [Lasix] 20 mg PO DAILY 02/11/22 02/11/22 History Allergies Allergy/AdvReac Type Severity Reaction Status Date / Time ergocalciferol (vitamin D2) Allergy Rash/Hives Verified 02/11/22 15:03 [From Vitamin D2] Physical Exam Vitals: Vital Signs Temp Pulse Pulse Resp BP Pulse Ox 02/11/22 14:00 86 16 89/50 92 L 02/11/22 13:00 87 15 80/54 02/11/22 12:42 99/61 02/11/22 12:00 90 15 87/61 02/11/22 11:37 90 14 93/60 97 02/11/22 11:02 101 H 18 94/63 96 02/11/22 10:28 118 H 02/11/22 10:09 97.9 F 118 H 18 87/62 97 Intake and Output 02/11/22 02/11/22 02/11/22 06:59 14:59 22:59 Other: Weight 68.039 kg PHYSICAL EXAMINATION: Patient is lying in the bed comfortably, no acute distress, awake alert and oriented.. HEENT: Normocephalic. Neck is supple. Pupils reactive. Nostrils clear. Oral cavity is dry. Neck reveals no JVD, carotid bruits, or thyromegaly. CHEST EXAMINATION: Trachea is central. Symmetrical expansion. Lung remy clear to auscultation and percussion. CARDIAC: Normal S1, S2 with no gallops. No murmurs ABDOMEN: Soft. Bowel sounds normal. No organomegaly. No abdominal bruits. Extremities: reveal no edema. No clubbing or cyanosis Neurologically awake, alert, oriented x3 with well-coordinated movements. No focal deficits noted Skin: No rash or skin lesions. Psychiatric: Cooperative. Nonsuicidal Musculoskeletal: No joint swelling or deformity. Normal range of motion. Results CBC & Chem 7: 02/12/22 08:47 02/12/22 08:47 Labs: Abnormal Lab Results - Last 24 Hours (Table) 02/11/22 02/11/22 Range/Units 10:53 10:53 WBC 16.9 H (3.8-10.6) k/uL MCHC 30.6 L (31.0-37.0) g/dL RDW 15.7 H (11.5-15.5) % Plt Count 545 H (150-450) k/uL Neutrophils # (Manual) 14.50 H (1.3-7.7) k/uL Monocytes # (Manual) 1.35 H (0-1.0) k/uL Myelocytes # (Manual) 0.17 H (0) k/uL Sodium 130 L (137-145) mmol/L Chloride 96 L (98-107) mmol/L BUN 31 H (7-17) mg/dL Creatinine 1.63 H (0.52-1.04) mg/dL Total Protein 5.8 L (6.3-8.2) g/dL Albumin 2.4 L (3.5-5.0) g/dL Lipase 20 L (23-300) U/L Thrombosis Risk Factor Assmnt - DVT/VTE Prophylaxis DVT/VTE Prophylaxis: Pharmacologic Prophylaxis ordered Assessment and Plan Assessment: Hypotension secondary to dehydration volume depletion Diarrhea possible overflow incontinence versus colitis. Proximal colonic fecal stasis Acute kidney injury likely prerenal Hypovolemic hyponatremia Leukocytosis likely reactive Coronary disease history of stent placement COPD not in exacerbation Hypertension Osteoarthritis GERD Anxiety/depression Please history of smoking DVT prophylaxis with heparin subcu Plan: Patient will be continued on IV hydration with normal saline. Was given fluid bolus times two 1 L in the ER. Follow-up renal function. Stool softeners and laxatives as needed. GI will be consulted and continue to follow closely. Time with Patient: Greater than 30
[2022-02-11] MEDS: SODIUM CHLORIDE 0.9% 1,000 ML IV SCH (23:24)
[2022-02-12] MEDS: PANTOPRAZOLE 40 MG TABLET PO SCH (07:16)
[2022-02-12] MEDS: IPRATROPIUM-ALBUTEROL 3 ML NEB INHALATION SCH ×4 (07:20→21:38)
[2022-02-12] MEDS: SYMBICORT 160-4.5 MCG INHALER INHALATION SCH ×2 (07:20→21:39)
[2022-02-12] MEDS: DICYCLOMINE 10 MG CAP PO SCH ×4 (08:20→21:42)
[2022-02-12] MEDS: VITAMIN E (DL,TOCOPHERYL ACET) 400 UNIT (180 MG) CAP PO SCH ×2 (08:20→20:47)
[2022-02-12] MEDS: METOPROLOL TARTRATE 25 MG TAB PO SCH ×2 (08:31→20:47)
[2022-02-12] MEDS: DULoxetine HCL 30 MG CAPSULE.DR PO SCH (08:31)
[2022-02-12] MEDS: FUROSEMIDE 20 MG TAB PO SCH (08:31)
[2022-02-12 10:13] LABS: Anisocytosis Slight; HCT 37.6 % (34.0-46.0); HGB 12.1 gm/dL (11.4-16.0); Hypochromasia Slight; MCH 29.7 pg (25.0-35.0); MCHC 32.1 g/dL (31.0-37.0); MCV 92.5 fL (80.0-100.0); Mean Platelet Volume 8.2; Platelet Count 342 k/uL (150-450); RBC 4.06 m/uL (3.80-5.40); RDW 16.6 % (11.5-15.5); WBC 12.6 k/uL (3.8-10.6)
[2022-02-12 10:40] LABS: Band Neutrophils % 3 %; Eosinophils # (M) 0.13 k/uL (0-0.7); Lymphocytes # (M) 1.51 k/uL (1.0-4.8); Metamyelocytes # (M) 0.13 k/uL (0); Metamyelocytes % 1 %; Monocytes # (M) 0.88 k/uL (0-1.0); Myelocytes # (M) 0.13 k/uL (0); Myelocytes % 1 %; Neutrophils % (M) 77 %; Nucleated Red Blood Cells 0 /100 WBC (0-0); Total Cells Counted 200; Toxic Granulation Present
[2022-02-12 10:43] LABS: Calcium 7.5 mg/dL (8.4-10.2); Potassium 4.9 mmol/L (3.5-5.1)
[2022-02-12 11:05] LABS: Glucose,Whole Blood 84 mg/dL (75-99)
[2022-02-12] MEDS: SODIUM CHLORIDE 0.9% 1,000 ML IV SCH (12:09)
--- NOTE | 2022-02-12 14:06 | P.CNPUL ---
History of Present Illness Consult date: 02/12/22 Requesting physician: Yue Jordan Reason for consult: COPD Chief complaint: Chronic diarrhea History of present illness: This is a 76-year-old female, known history of multiple medical problems including COPD, deep vein thrombosis, hypertension, previous bowel resection, previous cardiac ablation, patient came in with persistent diarrhea for the last 2 months. Patient was actually admitted to this hospital back on 01/06/2022, and she was seen at this time by many consultants including general surgery for her GI symptoms. Back then the patient had symptoms of nausea vomiting and diar micah, patient was also seen by Dr. Ojeda on consultation, and she recommended mostly symptomatic and supportive care, she recommended Bentyl for this patient. Did not feel a need for colonoscopy or endoscopic evaluation. Based on her note, patient was felt to have uncomplicated colitis, possibly infectious in nature, patient was given Flagyl at the time and Rocephin was discontinued. At any rate the patient is having similar symptoms, as a affect according to her symptoms never resolved. She continues to have at least 5-6 bowel movements every day. Describes the stool as watery stools, nonbloody, and associated with some abdominal cramps, no nausea no vomiting, no fever no chills. Pulmonary- torres, the patient has moderate severe COPD, and I was asked to see her on consultation, however her pulmonary symptoms are nonexistent at present, and her pulmonary issues seem to be the least of her problem at this point. Labs on this admission showed relatively normal CBC WBC count is 16.9, hemoglobin is 12.2, and she had a relatively normal electrolytes. Sodium is a bit low at 133. Review of Systems CARDIOPULMONARY: Negative Gastrointestinal: As noted in HPI GENITOURINARY: Negative MUSCULOSKELETAL: Negative SKIN: No rashes. Negative ENDOCRINE: Negative PSYCHIATRIC: Negative. NEUROLOGY: Negative ENT: Negative. CONSTITUTIONAL: Weight loss, no fever no chills. Patient could not tell how much weight she lost, but definitely over 15 pounds according to her. Past Medical History Past Medical History: COPD, Deep Vein Thrombosis (DVT), GERD/Reflux, Hypertension, Osteoarthritis (OA) Additional Past Medical History / Comment(s): hx- diverticulitis, sciatica left side. History of Any Multi-Drug Resistant Organisms: None Reported Past Surgical History: Bladder Surgery, Bowel Resection, Cardiac Ablation, Cholecystectomy, Heart Catheterization, Heart Catheterization With Stent, Hysterectomy Additional Past Surgical History / Comment(s): Bladder suspension, lt knee x2 arthroscopic, PAIN CLINIC PROCEDURES, LB CATARACT, one cardiac stent, bowel resection with colostomy/later reversal Past Anesthesia/Blood Transfusion Reactions: Motion Sickness Date of Last Stent Placement:: 2010 Past Psychological History: Anxiety, Depression Smoking Status: Former smoker Past Alcohol Use History: Daily Past Drug Use History: None Reported - Past Family History Sister(s) Family Medical History: Cancer Additional Family Medical History / Comment(s): rectal cancer Medications and Allergies Home Medications Medication Instructions Recorded Confirmed Type Ascorbic Acid [Vitamin C] 1,000 mg PO DAILY@169906/14/18 02/11/22 History Aspirin [Adult Low Dose Aspirin EC] 81 mg PO DAILY@169906/14/18 02/11/22 History DULoxetine HCL [Cymbalta] 30 mg PO DAILY 06/14/18 02/11/22 History Metoprolol Tartrate [Lopressor] 25 mg PO BID 06/14/18 02/11/22 History [place]-3 Fatty Acids [[place]-3] 1,000 mg PO DAILY@169906/14/18 02/11/22 History Potassium Chloride [K-Tab ER] 20 meq PO DAILY@169906/14/18 02/11/22 History Vitamin E (Dl,Tocopheryl Acet) 400 units PO BID 06/14/18 02/11/22 History [Vitamin E (400 Iu = 180 mg)] Naproxen Sodium [Aleve] 440 mg PO Q12H PRN 12/16/18 02/11/22 History Albuterol Sulfate [Albuterol 2 puff INHALATION RT-QID PRN 01/06/22 02/11/22 History Sulfate Hfa] Calcium Carbonate/Vitamin D3 1 tab PO DAILY@169901/06/22 02/11/22 History [Calcium 500-Vit D3 5 Mcg (200 Iu)] Cholecalciferol [Vitamin D3 (25 50 mcg PO DAILY@169901/06/22 02/11/22 History Mcg = 1000 Iu)] Ipratropium-Albuterol Nebulize 3 ml INHALATION RT-QID 01/06/22 02/11/22 History [Duoneb 0.5 mg-3 mg/3 ml Soln] Budesonide-Formot 160-4.5 Mcg 2 puff INHALATION RT-BID gm 01/13/22 02/11/22 Rx [Symbicort 160-4.5 Mcg Inhaler] Dicyclomine [Bentyl] 10 mg PO QID 30 Days #120 cap 01/13/22 02/11/22 Rx LORazepam [Ativan] 0.5 mg PO Q6H PRN 2 Days #8 tab 01/13/22 02/11/22 Rx Pantoprazole [Protonix] 40 mg PO DAILY 30 Days #30 tab 01/13/22 02/11/22 Rx Furosemide [Lasix] 20 mg PO DAILY 02/11/22 02/11/22 History Allergies Allergy/AdvReac Type Severity Reaction Status Date / Time ergocalciferol (vitamin D2) Allergy Rash/Hives Verified 02/11/22 15:03 [From Vitamin D2] Physical Exam Vitals: Vital Signs Temp Pulse Pulse Resp BP BP Pulse Ox 02/12/22 11:33 97.6 F 88 18 99/59 95 02/12/22 11:30 88 02/12/22 08:36 97.7 F 101 H 18 95/65 95 02/12/22 07:32 80 02/12/22 07:21 80 02/12/22 04:00 98.0 F 88 16 95/61 92 L 02/12/22 00:00 97.8 F 100 18 96/61 93 L 02/11/22 22:04 93/55 02/11/22 20:27 86 02/11/22 20:17 90 02/11/22 20:00 97.7 F 90 18 97/65 96 02/11/22 18:21 97.8 F 95 18 105/72 98 02/11/22 17:37 90 18 103/66 93 L 02/11/22 16:45 92 02/11/22 16:36 91 02/11/22 16:00 93/70 02/11/22 14:00 86 16 89/50 92 L Intake and Output 02/11/22 02/12/22 02/12/22 22:59 06:59 14:59 Intake Total 10 600 900 Output Total 200 500 Balance -190 100 900 Intake: IV 10 Invasive Line 1 10 Intake, IV Titration 600 900 Amount Sodium Chloride 0.9% 1, 600 900 000 ml @ 75 mls/hr IV . [id number] [facility] Rx#:[id number] Output: Urine 100 500 Stool 100 Other: Voiding Method Bedside Commode Bedside Commode Bedside Commode Diaper Diaper Diaper Incontinent Incontinent Incontinent # Voids 1 # Bowel Movements 1 Weight 68.039 kg General appearance: Revealed a 76-year-old female in no distress. Head: Atraumatic, normocephalic. HEENT: PERRLA, EOMI, nonicteric, moist mucous membranes Neck: Supple without lymphadenopathy. Trachea midline. Heart: Distant S1 and S2, no S3 gallop. Lungs: Symmetrical chest expansion clear throughout no crackles or rhonchi or wheezes Abdomen: Soft nontender no megaly no rebound no guarding. Positive bowel sounds. Extremities: No clubbing, no edema, no cyanosis. Neurological: Alert and oriented 3 no gross focal deficits. Psychiatric: Normal mood affect and normal mental status examination. Skin: No rashes. Results - Laboratory Findings CBC and BMP: 02/12/22 08:47 02/12/22 08:47 Abnormal lab findings: Abnormal Labs 02/11/22 02/11/22 02/12/22 10:53 10:53 08:47 WBC 16.9 H 12.6 H MCHC 30.6 L RDW 15.7 H 16.6 H Plt Count 545 H Neutrophils # (Manual) 14.50 H 10.00 H Monocytes # (Manual) 1.35 H Metamyelocytes # (Man) 0.13 H Myelocytes # (Manual) 0.17 H 0.13 H Sodium 130 L Chloride 96 L BUN 31 H Creatinine 1.63 H Glucose Calcium Total Protein 5.8 L Albumin 2.4 L Lipase 20 L 02/12/22 08:47 WBC MCHC RDW Plt Count Neutrophils # (Manual) Monocytes # (Manual) Metamyelocytes # (Man) Myelocytes # (Manual) Sodium 133 L Chloride BUN 27 H Creatinine 1.09 H Glucose 64 L Calcium 7.5 L Total Protein Albumin Lipase - Diagnostic Findings Additional studies: KUB showed nonspecific bowel gas pattern, she was noted to have possibly moderate to severe proximal colonic fecal stasis Chest x-ray showed chronic changes, no acute pulmonary process. Assessment and Plan Assessment: Impression: Chronic diarrhea, exact etiology is not clear, I suspect we may be dealing with collagenous colitis. History of COPD, moderately severe, presently inactive. Remote history of DVT. Benign essential hypertension. History of cardiac ablation. Generalized anxiety disorder. Degenerative joint disease. GERD without esophagitis. History of bowel resection. History of underlying coronary arteriosclerosis and previous stent placement. Recommendation: Continue present supportive care measures, Resume home meds. Suggest GI consultation, patient may require colonoscopy and biopsy however this will be decided upon by gastroenterology on the case. Not much to be added from our perspective. Her pulmonary status seems to be relatively stable. We will continue to follow. Time with Patient: Greater than 30
[2022-02-12] MEDS: ASCORBIC ACID 500 MG TAB PO SCH (15:28)
[2022-02-12] MEDS: CALCIUM CARB-VIT D 500 MG-5 MCG TAB PO SCH (15:28)
[2022-02-12] MEDS: CHOLECALCIFEROL 25 MCG (1000 IU) TABLET PO SCH (15:28)
[2022-02-12] MEDS: POTASSIUM CHLORIDE ER 20 MEQ TAB.ER PO SCH (15:28)
[2022-02-12] MEDS: ASPIRIN 81 MG PO SCH (16:10)
[2022-02-12] MEDS: LORazepam 0.5 MG TAB PO PRN (20:52)
[2022-02-13] MEDS: HEPARIN SODIUM,PORCINE/PF 5,000 UNIT/0.5 ML SYRINGE SQ SCH ×3 (00:31→16:52)
[2022-02-13] MEDS: PANTOPRAZOLE 40 MG TABLET PO SCH (06:48)
[2022-02-13] MEDS: SODIUM CHLORIDE 0.9% 1,000 ML IV SCH ×2 (06:49→13:17)
[2022-02-13 07:07] LABS: Anisocytosis Slight; HCT 33.4 % (34.0-46.0); HGB 10.3 gm/dL (11.4-16.0); Hypochromasia Moderate; MCH 29.6 pg (25.0-35.0); MCV 95.4 fL (80.0-100.0); Mean Platelet Volume 7.1; Platelet Count 410 k/uL (150-450); RDW 16.2 % (11.5-15.5); WBC 9.6 k/uL (3.8-10.6)
[2022-02-13 07:32] LABS: Calcium 7.5 mg/dL (8.4-10.2); Potassium 3.7 mmol/L (3.5-5.1)
[2022-02-13] MEDS: IPRATROPIUM-ALBUTEROL 3 ML NEB INHALATION SCH ×4 (08:12→20:35)
[2022-02-13] MEDS: SYMBICORT 160-4.5 MCG INHALER INHALATION SCH ×2 (08:12→20:35)
[2022-02-13] MEDS: FUROSEMIDE 20 MG TAB PO SCH (08:21)
[2022-02-13] MEDS: DULoxetine HCL 30 MG CAPSULE.DR PO SCH (08:21)
[2022-02-13] MEDS: METOPROLOL TARTRATE 25 MG TAB PO SCH ×2 (08:21→21:16)
[2022-02-13] MEDS: DICYCLOMINE 10 MG CAP PO SCH ×4 (08:21→21:16)
[2022-02-13] MEDS: VITAMIN E (DL,TOCOPHERYL ACET) 400 UNIT (180 MG) CAP PO SCH ×2 (08:22→21:16)
[2022-02-13 09:12] LABS: Lymphocytes # (M) 1.54 k/uL (1.0-4.8); Nucleated Red Blood Cells 0 /100 WBC (0-0)
[2022-02-13 09:17] LABS: Band Neutrophils % 6 %; Metamyelocytes % 1 %; Monocytes # (M) 0.67 k/uL (0-1.0); Myelocytes % 1 %; Neutrophils % (M) 70 %; Total Cells Counted 200
--- NOTE | 2022-02-13 11:34 | P.PN ---
Subjective Progress Note Date: 02/13/22 This is a 76-year-old female, known history of multiple medical problems including COPD, deep vein thrombosis, hypertension, previous bowel resection, previous cardiac ablation, patient came in with persistent diarrhea for the last 2 months. Patient was actually admitted to this hospital back on 01/06/2022, and she was seen at this time by many consultants including general surgery for her GI symptoms. Back then the patient had symptoms of nausea vomiting and diarrhea, patient was also seen by Dr. Ojeda on consultation, and she recommended mostly symptomatic and supportive care, she recommended Bentyl for this patient. Did not feel a need for colonoscopy or endoscopic evaluation. Based on her note, patient was felt to have uncomplicated colitis, possibly infectious in nature, patient was given Flagyl at the time and Rocephin was discontinued. At any rate the patient is having similar symptoms, as a affect according to her symptoms never resolved. She continues to have at least 5-6 bowel movements every day. Describes the stool as watery stools, nonbloody, and associated with some abdominal cramps, no nausea no vomiting, no fever no chills. Pulmonary- torres, the patient has moderate severe COPD, and I was asked to see her on consultation, however her pulmonary symptoms are nonexistent at present, and her pulmonary issues seem to be the least of her problem at this point. Labs on this admission showed relatively normal CBC WBC count is 16.9, hemoglobin is 12.2, and she had a relatively normal electrolytes. Sodium is a bit low at 133. On today's evaluation of 02/10/2022, the patient's diarrhea has subsided and slowing down. She is feeling better. Brester status is also stable. We'll consulted on her because of her underlying COPD. The patient was seen in consultation by Dr. Borrego yesterday. She remains on IV fluids no saline at the rate of 75 mL's an hour. Her breathing is nonlabored. No chest pain. No significant cough sputum production chest tightness or wheezing. The CAT scan of the abdomen showed no evidence of any pancreatic mass. There is some cho lecystectomy changes in the right and narrowing at the level of ampulla of later that may potentially reflect a stricture. Nevertheless, the patient's blood work showed no evidence of any abnormal LFTs. Amylase and lipase were also within normal limits. UA was negative. The white cell count was at 9.6 with a hemoglobin of 10.3 and a platelet count of 410. The rest of the electrolytes are all within normal limits. The end is a 23 with a creatinine of 0.9 and a calcium level of 7.5. Objective - Vital Signs Vital signs: Vital Signs Temp 98 F 02/13/22 08:00 Pulse 90 02/13/22 08:27 Resp 18 02/13/22 08:00 BP 98/66 02/13/22 08:00 Pulse Ox 94 L 02/13/22 08:00 FiO2 Intake & Output 02/12/22 02/13/22 02/13/22 18:59 06:59 18:59 Intake Total 1250 Output Total 750 600 Balance 1250 -750 -600 Intake: Intake, IV Titration 900 Amount Sodium Chloride 0.9% 1, 900 000 ml @ 75 mls/hr IV . [id number] [facility] Rx#:[id number] Oral 350 Output: Stool 750 600 Other: Voiding Method Bedside Commode Bedside Commode Bedside Commode Diaper Diaper Diaper Incontinent Incontinent Incontinent # Voids 1 1 1 # Bowel Movements 1 - Exam General appearance: Revealed a 76-year-old female in no distress. She is on RA Head: Atraumatic, normocephalic. HEENT: PERRLA, EOMI, nonicteric, moist mucous membranes Neck: Supple without lymphadenopathy. Trachea midline. Heart: Distant S1 and S2, no S3 gallop. Lungs: Symmetrical chest expansion clear throughout no crackles or rhonchi or wheezes Abdomen: Soft nontender no megaly no rebound no guarding. Positive bowel sounds. Extremities: No clubbing, no edema, no cyanosis. Neurological: Alert and oriented 3 no gross focal deficits. Psychiatric: Normal mood affect and normal mental status examination. Skin: No rashes. - Labs CBC & Chem 7: 02/13/22 05:55 02/13/22 05:55 Labs: Abnormal Lab Results - Last 24 Hours (Table) 02/13/22 02/13/22 Range/Units 05:55 05:55 RBC 3.50 L (3.80-5.40) m/uL Hgb 10.3 L (11.4-16.0) gm/dL Hct 33.4 L (34.0-46.0) % RDW 16.2 H (11.5-15.5) % Metamyelocytes # (Man) 0.10 H (0) k/uL Myelocytes # (Manual) 0.10 H (0) k/uL Sodium 135 L (137-145) mmol/L BUN 23 H (7-17) mg/dL Calcium 7.5 L (8.4-10.2) mg/dL Assessment and Plan Plan: Chronic diarrhea, exact etiology is not clear, under investigation. clinically improving History of COPD, moderately severe, presently inactive. Remote history of DVT. Benign essential hypertension. History of cardiac ablation. Generalized anxiety disorder. Degenerative joint disease. GERD without esophagitis. History of bowel resection. History of underlying coronary arteriosclerosis and previous stent placement. Recommendation: Continue present supportive care measures, Resume home meds. GI consultation, patient may require colonoscopy and biopsy however this will be decided upon by gastroenterology on the case Check stool for C. diff. Her pulmonary status seems to be relatively stable. We will continue to follow.
--- NOTE | 2022-02-13 13:09 | P.CONS ---
History of Present Illness - Reason for Consult Consult date: 02/13/22 Chronic diarrhea Requesting physician: Jennyfer Santos - Chief Complaint Dizziness, diarrhea - History of Present Illness This is a pleasant 76-year-old female who presented to the emergency department yesterday with complaints of dizziness and diarrhea. She has a past medical history including COPD, DVT, GERD, hypertension, osteoarthritis, diverticulitis with bowel resection. She was found to be hypotensive on admission. Patient was recently admitted and discharged, and was seen at that time by gastroenterology for diarrhea which she states she had had for the prior 2 weeks. Patient states she continues to have loose stools up to 7-8 a day, watery, nonbloody. States over the last couple days they have improved and she is only having 3-4 bowel movements daily. She denies any abdominal pain or cramping associated. She's had no nausea or vomiting. During her last hospitalization C. difficile toxin was negative, patient was started on IV Rocephin and Flagyl, first computed tomography scan that showed possible mild uncomplicated colitis. Patient has undergone bowel resection in [address] Nitin Gee. During her last admission again diarrhea had improved and no endoscopic evaluation was recommended at that time. Patient was started on Bentyl. She was discharged to [facility]. WBC 9.6 hemoglobin 10.3 hematocrit 33 platelet count 410,000 sodium 135 potassium 3.7 BUN 23 creatinine 0.96 glucose 74 Review of Systems REVIEW OF SYSTEMS: CARDIOPULMONARY: No chest pain or shortness of breath. Gastrointestinal: No abdominal pain. Diarrhea, loose, watery, up to 78 per day, nonbloody. No nausea or vomiting. No hematemesis, coffee-ground emesis. No rectal bleeding, or melena. GENITOURINARY: No dysuria or hematuria. MUSCULOSKELETAL: Reports normal range of motion., Joint pain. SKIN: No rashes. No jaundice. ENDOCRINE: No chills, fevers. No excessive weight gain or loss. No polydipsia or polyuria. PSYCHIATRIC: Unremarkable. NEUROLOGY: No change in mental status. Dizziness, weakness. ENT: Vision unremarkable. CONSTITUTIONAL: No recent weight loss. No fever, chills, night sweats. Past Medical History Past Medical History: COPD, Deep Vein Thrombosis (DVT), GERD/Reflux, Hypertension, Osteoarthritis (OA) Additional Past Medical History / Comment(s): hx- diverticulitis, sciatica left side. History of Any Multi-Drug Resistant Organisms: None Reported Past Surgical History: Bladder Surgery, Bowel Resection, Cardiac Ablation, Cholecystectomy, Heart Catheterization, Heart Catheterization With Stent, Hysterectomy Additional Past Surgical History / Comment(s): Bladder suspension, lt knee x2 arthroscopic, PAIN CLINIC PROCEDURES, LB CATARACT, one cardiac stent, bowel resection with colostomy/later reversal Past Anesthesia/Blood Transfusion Reactions: Motion Sickness Date of Last Stent Placement:: 2010 Past Psychological History: Anxiety, Depression Smoking Status: Former smoker Past Alcohol Use History: Daily Past Drug Use History: None Reported - Past Family History Sister(s) Family Medical History: Cancer Additional Family Medical History / Comment(s): rectal cancer Medications and Allergies Home Medications Medication Instructions Recorded Confirmed Type Ascorbic Acid [Vitamin C] 1,000 mg PO DAILY@169906/14/18 02/11/22 History Aspirin [Adult Low Dose Aspirin EC] 81 mg PO DAILY@169906/14/18 02/11/22 History DULoxetine HCL [Cymbalta] 30 mg PO DAILY 06/14/18 02/11/22 History Metoprolol Tartrate [Lopressor] 25 mg PO BID 06/14/18 02/11/22 History Scott-3 Fatty Acids [Scott-3] 1,000 mg PO DAILY@169906/14/18 02/11/22 History Potassium Chloride [K-Tab ER] 20 meq PO DAILY@169906/14/18 02/11/22 History Vitamin E (Dl,Tocopheryl Acet) 400 units PO BID 06/14/18 02/11/22 History [Vitamin E (400 Iu = 180 mg)] Naproxen Sodium [Aleve] 440 mg PO Q12H PRN 12/16/18 02/11/22 History Albuterol Sulfate [Albuterol 2 puff INHALATION RT-QID PRN 01/06/22 02/11/22 History Sulfate Hfa] Calcium Carbonate/Vitamin D3 1 tab PO DAILY@169901/06/22 02/11/22 History [Calcium 500-Vit D3 5 Mcg (200 Iu)] Cholecalciferol [Vitamin D3 (25 50 mcg PO DAILY@169901/06/22 02/11/22 History Mcg = 1000 Iu)] Ipratropium-Albuterol Nebulize 3 ml INHALATION RT-QID 01/06/22 02/11/22 History [Duoneb 0.5 mg-3 mg/3 ml Soln] Budesonide-Formot 160-4.5 Mcg 2 puff INHALATION RT-BID gm 01/13/22 02/11/22 Rx [Symbicort 160-4.5 Mcg Inhaler] Dicyclomine [Bentyl] 10 mg PO QID 30 Days #120 cap 01/13/22 02/11/22 Rx LORazepam [Ativan] 0.5 mg PO Q6H PRN 2 Days #8 tab 01/13/22 02/11/22 Rx Pantoprazole [Protonix] 40 mg PO DAILY 30 Days #30 tab 01/13/22 02/11/22 Rx Furosemide [Lasix] 20 mg PO DAILY 02/11/22 02/11/22 History Allergies Allergy/AdvReac Type Severity Reaction Status Date / Time ergocalciferol (vitamin D2) Allergy Rash/Hives Verified 02/11/22 15:03 [From Vitamin D2] Physical Exam Vitals: Vital Signs Temp Pulse Pulse Resp BP Pulse Ox 02/13/22 08:27 90 02/13/22 08:12 90 02/13/22 08:00 98 F 94 18 98/66 94 L 02/13/22 04:00 97.9 F 92 16 100/66 91 L 02/13/22 00:00 98.0 F 88 16 95/62 92 L 02/12/22 21:51 92 02/12/22 21:39 90 02/12/22 20:00 97.7 F 107 H 18 120/82 02/12/22 15:03 97.3 F L 109 H 20 127/77 95 02/12/22 11:33 97.6 F 88 18 99/59 95 02/12/22 11:30 88 Intake and Output 02/12/22 02/13/22 02/13/22 22:59 06:59 14:59 Intake Total 230 Output Total 500 250 600 Balance -270 -250 -600 Intake: Oral 230 Output: Stool 500 250 600 Other: Voiding Method Bedside Commode Bedside Commode Bedside Commode Diaper Diaper Diaper Incontinent Incontinent Incontinent # Voids 1 1 General appearance: The patient is alert, oriented, appears in no acute dist ress. HET: Head is normocephalic and atraumatic. Conjunctiva pink. Sclera anicteric. Neck: Supple without lymphadenopathy. Trachea midline. Heart: S1 S2. Regular rate and rhythm. Lungs: Clear to auscultation. Abdomen: Soft, nontender, nondistended with bowel sounds. No guarding or rigidity. Skin: No rashes. No jaundice. Extremities: Normal skin color and turgor. No pedal edema. Neurological: No focal deficits. Alert and oriented x3. Results CBC & Chem 7: 02/13/22 05:55 02/13/22 05:55 Labs: Abnormal Lab Results - Last 24 Hours (Table) 02/12/22 02/12/22 02/13/22 Range/Units 08:47 08:47 05:55 RBC 3.50 L (3.80-5.40) m/uL Hgb 10.3 L (11.4-16.0) gm/dL Hct 33.4 L (34.0-46.0) % RDW 16.2 H (11.5-15.5) % Neutrophils # (Manual) 10.00 H (1.3-7.7) k/uL Metamyelocytes # (Man) 0.13 H 0.10 H (0) k/uL Myelocytes # (Manual) 0.13 H 0.10 H (0) k/uL Sodium 133 L (137-145) mmol/L BUN 27 H (7-17) mg/dL Creatinine 1.09 H (0.52-1.04) mg/dL Glucose 64 L (74-99) mg/dL Calcium 7.5 L (8.4-10.2) mg/dL 02/13/22 Range/Units 05:55 RBC (3.80-5.40) m/uL Hgb (11.4-16.0) gm/dL Hct (34.0-46.0) % RDW (11.5-15.5) % Neutrophils # (Manual) (1.3-7.7) k/uL Metamyelocytes # (Man) (0) k/uL Myelocytes # (Manual) (0) k/uL Sodium 135 L (137-145) mmol/L BUN 23 H (7-17) mg/dL Creatinine (0.52-1.04) mg/dL Glucose (74-99) mg/dL Calcium 7.5 L (8.4-10.2) mg/dL Assessment and Plan (1) Chronic diarrhea Narrative/Plan: 76-year-old female who was admitted for dizziness and hypotension With multiple comorbidities has also reported that she had continued diarrhea since her last admission. States that she's had it for over one month's duration. During her last admission last month diarrhea had improved. She was treated with Rocephin and Flagyl has CT of the abdomen had showed possible mild colitis. Diarrhea had improved and she was sent home on Bentyl. She is unsure when her last colonoscopy was, states several years ago. Patient does have a history of diverticulitis and underwent a bowel resection with Dr. Nitin Gee in 2011. Patient states she had normal bowel movements after that up until 1-2 months ago. She states that she will have at times up to 78 loose bowel movements daily, nonbloody. Denies any associated abdominal cramping or pain. No nausea or vomiting. During her last admission she was tested for C. diff which was negative as well as stool cultures that were negative. As patient has continued diarrhea will recommend proceeding with EGD and colonoscopy as well as repeat stool studies. Current Visit: Yes Status: Acute Code(s): K52.9 - NONINFECTIVE GASTROENTERITIS AND COLITIS, UNSPECIFIED SNOMED Code(s): 108146360 (2) COPD (chronic obstructive pulmonary disease) Current Visit: Yes Status: Acute Code(s): J44.9 - CHRONIC OBSTRUCTIVE PULMONARY DISEASE, UNSPECIFIED SNOMED Code(s): 06979954 (3) History of bowel resection Current Visit: Yes Status: Acute Code(s): Z90.49 - ACQUIRED ABSENCE OF OTHER SPECIFIED PARTS OF DIGESTIVE TRACT SNOMED Code(s): 633766055 (4) Hypotension Current Visit: Yes Status: Acute Code(s): I95.9 - HYPOTENSION, UNSPECIFIED SNOMED Code(s): 66218541 Plan: 1. Continue symptomatic and supportive care 2. Clear liquid diet 3. Nothing by mouth after midnight 4. Bowel prep this afternoon 5. Patient is scheduled for EGD and colonoscopy tomorrow. Procedure discussed with patient including risks and benefits, patient is agreeable to proceed. 6. Continue Bentyl 7. Stool studies ordered Thank you for this consultation, we will continue to follow. Dr. K Tumma I agree with the dictator's note, documented as a scribe by Maritza Agudelo.
[2022-02-13] MEDS ORDERED: PEG 3350-NA SULF,BICARB,CL/KCL 4,000 ML BOTTLE PO ONE (15:00)
[2022-02-13] MEDS: CHOLECALCIFEROL 25 MCG (1000 IU) TABLET PO SCH (16:52)
[2022-02-13] MEDS: ASPIRIN 81 MG PO SCH (16:52)
[2022-02-13] MEDS: CALCIUM CARB-VIT D 500 MG-5 MCG TAB PO SCH (16:52)
[2022-02-13] MEDS: ASCORBIC ACID 500 MG TAB PO SCH (16:52)
[2022-02-13] MEDS: POTASSIUM CHLORIDE ER 20 MEQ TAB.ER PO SCH (16:52)
--- NOTE | 2022-02-13 23:21 | P.PN ---
Subjective Progress Note Date: 02/12/22 Patient is a 76-year-old female with a known history of COPD, hypertension, GERD, history of DVT, coronary artery disease history of stent placement, anxiety/depression and previous history of smoking and daily alcohol use presents to ER with complaints of dizziness. Patient has been having diarrhea for the past couple of months and was in the hospital previously patient was sent to Rehab and was recently discharged home. Patient still has been having loose stool. However denies any complaints of abdominal pain. No chest pain or shortness of breath. No nausea or vomiting. On admission patient was found to be hypotensive with blood pressure 87/62 pulse is 118 respiration 18 and pulse ox 97% on room air Chest x-ray showed chronic changes without acute pulmonary process. KUB x-ray showed overall nonspecific but favored nonobstructive bowel gas pattern. Moderate to severe proximal chronic fecal stasis is felt present currently. EKG showed sinus tachycardia Laboratory showed WBC 16.9 hemoglobin 12.2 and platelets 545 Sodium 130 potassium 4.9 chloride 96 BUN 31 and creatinine 1.63 and lipase 20 albumin 2.4 Urinalysis is negative for infection. 02/12/2022. Patient is currently resting in the bed. Awake alert and oriented x3. Still having diarrhea. Occasional cramping abdominal pain. No nausea or vomiting. No cough or sputum production. No complaints of chest pain or shortness of breath. Laboratory data showed WBC 12.6 hemoglobin 12.1 and platelets 342 Sodium 133 potassium 4.9 chloride 103 BUN 27 creatinine 1.09 and blood sugar 64 and calcium 7.5 Patient is being continued on IV hydration with normal saline and electrolyte replacement. Renal function is improving. Current medications reviewed. Objective - Vital Signs Vital signs: Vital Signs Temp 97.3 F L 02/12/22 15:03 Pulse 109 H 02/12/22 15:03 Resp 20 02/12/22 15:03 BP 127/77 02/12/22 15:03 Pulse Ox 95 02/12/22 15:03 Intake & Output 02/12/22 02/12/22 02/13/22 06:59 18:59 06:59 Intake Total 600 1250 Output Total 500 Balance 100 1250 Intake: Intake, IV Titration 600 900 Amount Sodium Chloride 0.9% 1, 600 900 000 ml @ 75 mls/hr IV . [id number] [facility] Rx#:[id number] Oral 350 Output: Urine 500 Other: Voiding Method Bedside Commode Bedside Commode Diaper Diaper Incontinent Incontinent # Voids 1 # Bowel Movements 1 - Exam PHYSICAL EXAMINATION: Patient is lying in the bed comfortably, no acute distress, awake alert and oriented.. HEENT: Normocephalic. Neck is supple. Pupils reactive. Nostrils clear. Oral cavity is dry. Neck reveals no JVD, carotid bruits, or thyromegaly. CHEST EXAMINATION: Trachea is central. Symmetrical expansion. Lung remy clear to auscultation and percussion. CARDIAC: Normal S1, S2 with no gallops. No murmurs ABDOMEN: Soft. Bowel sounds normal. No organomegaly. No abdominal bruits. Extremities: reveal no edema. No clubbing or cyanosis Neurologically awake, alert, oriented x3 with well-coordinated movements. No focal deficits noted Skin: No rash or skin lesions. Psychiatric: Cooperative. Nonsuicidal Musculoskeletal: No joint swelling or deformity. Normal range of motion. - Labs CBC & Chem 7: 02/13/22 05:55 02/13/22 05:55 Labs: Abnormal Lab Results - Last 24 Hours (Table) 02/12/22 02/12/22 Range/Units 08:47 08:47 WBC 12.6 H (3.8-10.6) k/uL RDW 16.6 H (11.5-15.5) % Neutrophils # (Manual) 10.00 H (1.3-7.7) k/uL Metamyelocytes # (Man) 0.13 H (0) k/uL Myelocytes # (Manual) 0.13 H (0) k/uL Sodium 133 L (137-145) mmol/L BUN 27 H (7-17) mg/dL Creatinine 1.09 H (0.52-1.04) mg/dL Glucose 64 L (74-99) mg/dL Calcium 7.5 L (8.4-10.2) mg/dL Assessment and Plan Assessment: Hypotension secondary to dehydration volume depletion. improved. Diarrhea possible overflow incontinence versus colitis. Proximal colonic fecal stasis Acute kidney injury likely prerenal Hypovolemic hyponatremia Leukocytosis likely reactive Coronary disease history of stent placement COPD not in exacerbation Hypertension Osteoarthritis GERD Anxiety/depression Please history of smoking DVT prophylaxis with heparin subcu Plan: Patient will be continued on IV hydration with normal saline. Was given fluid bolus times two 1 L in the ER. Follow-up renal function. Stool softeners and laxatives as needed. GI consult due to diarrhea. continue to follow closely. Time with Patient: Greater than 30
--- NOTE | 2022-02-13 23:22 | P.PN ---
Subjective Progress Note Date: 02/13/22 Patient is a 76-year-old female with a known history of COPD, hypertension, GERD, history of DVT, coronary artery disease history of stent placement, anxiety/depression and previous history of smoking and daily alcohol use presents to ER with complaints of dizziness. Patient has been having diarrhea for the past couple of months and was in the hospital previously patient was sent to Rehab and was recently discharged home. Patient still has been having loose stool. However denies any complaints of abdominal pain. No chest pain or shortness of breath. No nausea or vomiting. On admission patient was found to be hypotensive with blood pressure 87/62 pulse is 118 respiration 18 and pulse ox 97% on room air Chest x-ray showed chronic changes without acute pulmonary process. KUB x-ray showed overall nonspecific but favored nonobstructive bowel gas pattern. Moderate to severe proximal chronic fecal stasis is felt present currently. EKG showed sinus tachycardia Laboratory showed WBC 16.9 hemoglobin 12.2 and platelets 545 Sodium 130 potassium 4.9 chloride 96 BUN 31 and creatinine 1.63 and lipase 20 albumin 2.4 Urinalysis is negative for infection. 02/12/2022. Patient is currently resting in the bed. Awake alert and oriented x3. Still having diarrhea. Occasional cramping abdominal pain. No nausea or vomiting. No cough or sputum production. No complaints of chest pain or shortness of breath. Laboratory data showed WBC 12.6 hemoglobin 12.1 and platelets 342 Sodium 133 potassium 4.9 chloride 103 BUN 27 creatinine 1.09 and blood sugar 64 and calcium 7.5 Patient is being continued on IV hydration with normal saline and electrolyte replacement. Renal function is improving. 02/13/2022. Patient is resting in the bed. Awake alert and oriented.. No complaints of chest pain or shortness of breath. Continues to have diarrhea. Blood pressure is stable and improved. Patient was seen by gastroenterology and is planning for colonoscopy. Patient has been afebrile. No nausea vomiting abdominal pain or diarrhea. Laboratory data showed WBC trending down to 9.6 hemoglobin 10.3 and platelets 410 Sodium 135, potassium 3.7 chloride 107 BUN 23 and creatinine 0.96 and calcium 7.5. Current medications reviewed. Objective - Vital Signs Vital signs: Vital Signs Temp 97.4 F L 02/13/22 19:54 Pulse 100 02/13/22 19:54 Resp 18 02/13/22 19:54 BP 95/62 02/13/22 19:54 Pulse Ox 95 02/13/22 19:54 FiO2 Intake & Output 02/13/22 02/13/22 02/14/22 06:59 18:59 06:59 Intake Total 480 Output Total 750 900 Balance -750 -900 480 Weight 68.039 kg Intake: Oral 480 Output: Stool 750 900 Other: Voiding Method Bedside Commode Bedside Commode Bedside Commode Diaper Diaper Diaper Incontinent Incontinent Incontinent # Voids 1 1 - Exam PHYSICAL EXAMINATION: Patient is lying in the bed comfortably, no acute distress, awake alert and oriented.. HEENT: Normocephalic. Neck is supple. Pupils reactive. Nostrils clear. Oral cavity is dry. Neck reveals no JVD, carotid bruits, or thyromegaly. CHEST EXAMINATION: Trachea is central. Symmetrical expansion. Lung remy clear to auscultation and percussion. CARDIAC: Normal S1, S2 with no gallops. No murmurs ABDOMEN: Soft. Bowel sounds normal. No organomegaly. No abdominal bruits. Extremities: reveal no edema. No clubbing or cyanosis Neurologically awake, alert, oriented x3 with well-coordinated movements. No focal deficits noted Skin: No rash or skin lesions. Psychiatric: Cooperative. Nonsuicidal Musculoskeletal: No joint swelling or deformity. Normal range of motion. - Labs CBC & Chem 7: 02/13/22 05:55 02/13/22 05:55 Labs: Abnormal Lab Results - Last 24 Hours (Table) 02/13/22 02/13/22 Range/Units 05:55 05:55 RBC 3.50 L (3.80-5.40) m/uL Hgb 10.3 L (11.4-16.0) gm/dL Hct 33.4 L (34.0-46.0) % RDW 16.2 H (11.5-15.5) % Metamyelocytes # (Man) 0.10 H (0) k/uL Myelocytes # (Manual) 0.10 H (0) k/uL Sodium 135 L (137-145) mmol/L BUN 23 H (7-17) mg/dL Calcium 7.5 L (8.4-10.2) mg/dL Assessment and Plan Assessment: Hypotension secondary to dehydration volume depletion. improved. Diarrhea possible overflow incontinence versus colitis. Proximal colonic fecal stasis Acute kidney injury likely prerenal Hypovolemic hyponatremia Leukocytosis likely reactive Coronary disease history of stent placement COPD not in exacerbation Hypertension Osteoarthritis GERD Anxiety/depression Please history of smoking DVT prophylaxis with heparin subcu Plan: Patient will be continued on IV hydration with normal saline. Was given fluid bolus times two 1 L in the ER. Follow-up renal function. Stool softeners and laxatives as needed. GI consult due to diarrhea. planning for colonoscopy. continue to follow closely. Time with Patient: Greater than 30
[2022-02-14] MEDS: HEPARIN SODIUM,PORCINE/PF 5,000 UNIT/0.5 ML SYRINGE SQ SCH ×4 (01:19→23:12)
[2022-02-14] MEDS: SODIUM CHLORIDE 0.9% 1,000 ML IV SCH ×2 (05:37→21:06)
[2022-02-14] MEDS: PANTOPRAZOLE 40 MG TABLET PO SCH (06:27)
[2022-02-14] MEDS: SYMBICORT 160-4.5 MCG INHALER INHALATION SCH ×2 (08:41→21:15)
[2022-02-14] MEDS: IPRATROPIUM-ALBUTEROL 3 ML NEB INHALATION SCH ×4 (08:41→21:15)
[2022-02-14] MEDS: METOPROLOL TARTRATE 25 MG TAB PO SCH ×2 (09:47→21:05)
[2022-02-14] MEDS: DULoxetine HCL 30 MG CAPSULE.DR PO SCH (09:48)
[2022-02-14] MEDS: DICYCLOMINE 10 MG CAP PO SCH ×4 (09:48→21:05)
[2022-02-14] MEDS: VITAMIN E (DL,TOCOPHERYL ACET) 400 UNIT (180 MG) CAP PO SCH ×3 (09:48→21:05)
[2022-02-14] MEDS: FUROSEMIDE 20 MG TAB PO SCH (09:48)
--- NOTE | 2022-02-14 10:43 | P.PN ---
Subjective Progress Note Date: 02/14/22 Principal diagnosis: Chronic diarrhea Pleasant 76-year-old female who was admitted to the hospital for weakness, dehydration, and diarrhea. Patient has had chronic diarrhea for the last 1-2 months. She was scheduled for EGD and colonoscopy today however states she was not able to finish her bowel prep. States that she only had 1 bowel movement today. Denies any abdominal pain, nausea, or vomiting. States the bowel prep makes her nauseated therefore she did not drink yesterday. Nares any blood in her stool. Stool studies have not been collected. She's been afebrile. Objective - Vital Signs Vital signs: Vital Signs Temp 97.6 F 02/14/22 04:00 Pulse 96 02/14/22 08:52 Resp 16 02/14/22 04:00 BP 96/67 02/14/22 04:00 Pulse Ox 94 L 02/14/22 04:00 FiO2 Intake & Output 02/13/22 02/14/22 02/14/22 18:59 06:59 18:59 Intake Total 1380 Output Total 900 Balance -900 1380 Weight 68.039 kg Intake: Intake, IV Titration 900 Amount Sodium Chloride 0.9% 1, 900 000 ml @ 75 mls/hr IV . [id number] [facility] Rx#:[id number] Oral 480 Output: Stool 900 Other: Voiding Method Bedside Commode Bedside Commode Diaper Diaper Incontinent Incontinent # Voids 1 1 # Bowel Movements 3 - Exam General appearance: The patient is alert, oriented, appears in no acute distress. HET: Head is normocephalic and atraumatic. Conjunctiva pink. Sclera anicteric. Neck: Supple without lymphadenopathy. Abdomen: Soft, nontender, nondistended with bowel sounds. No guarding or rigidity. Extremities: Normal skin color and turgor. No pedal edema Skin: No rashes, no jaundice Neurological: No focal deficits. Alert and oriented -3. - Labs CBC & Chem 7: 02/13/22 05:55 02/13/22 05:55 Assessment and Plan (1) Chronic diarrhea Narrative/Plan: 76-year-old female who was admitted for dizziness and hypotension With multiple comorbidities has also reported that she had continued diarrhea since her last admission. States that she's had it for over one month's duration. During her last admission last month diarrhea had improved. She was treated with Rocephin and Flagyl has CT of the abdomen had showed possible mild colitis. Diarrhea had improved and she was sent home on Bentyl. She is unsure when her last colonoscopy was, states several years ago. Patient does have a history of diverticulitis and underwent a bowel resection with Dr. Nitin Gee in 2011. Patient states she had normal bowel movements after that up until 1-2 months ago. She states that she will have at times up to 78 loose bowel movements daily, nonbloody. Denies any associated abdominal cramping or pain. No nausea or vomiting. During her last admission she was tested for C. diff which was negative as well as stool cultures that were negative. As patient has continued diarrhea will recommend proceeding with EGD and colonoscopy as well as repeat stool studies. Current Visit: Yes Status: Acute Code(s): K52.9 - NONINFECTIVE GASTROENTERITIS AND COLITIS, UNSPECIFIED SNOMED Code(s): 041223452 (2) COPD (chronic obstructive pulmonary disease) Current Visit: Yes Status: Acute Code(s): J44.9 - CHRONIC OBSTRUCTIVE PULMONARY DISEASE, UNSPECIFIED SNOMED Code(s): 36439760 (3) History of bowel resection Current Visit: Yes Status: Acute Code(s): Z90.49 - ACQUIRED ABSENCE OF OTHER SPECIFIED PARTS OF DIGESTIVE TRACT SNOMED Code(s): 962979710 (4) Hypotension Current Visit: Yes Status: Acute Code(s): I95.9 - HYPOTENSION, UNSPECIFIED SNOMED Code(s): 32936464 Plan: 1. Continue symptomatic and supportive care 2. Clear liquid diet 3. Nothing by mouth after midnight 4. Finish bowel prep today 5. Patient is scheduled for EGD and colonoscopy tomorrow. Procedure discussed with patient including risks and benefits, patient is agreeable to proceed. 6. Continue Bentyl 7. Stool studies ordered 8. Patient to follow-up with Dr. Salguero outpatient in 2 weeks to follow-up on biopsies and diarrhea. Thank you for allowing us to participate in the care of the patient, the GI service will sign off, gastroenterology will not be available at the hospital this weekend and through next week. If further evaluation by gastroenterology is required the patient will need transfer as per the primary team's discretion. Dr. Huy Salguero I agree with the dictator's note, documented as a scribe by Maritza Agudelo.
--- NOTE | 2022-02-14 13:48 | P.PN ---
Subjective Progress Note Date: 02/14/22 This is a 76-year-old female, known history of multiple medical problems including COPD, deep vein thrombosis, hypertension, previous bowel resection, previous cardiac ablation, patient came in with persistent diarrhea for the last 2 months. Patient was actually admitted to this hospital back on 01/06/2022, and she was seen at this time by many consultants including general surgery for her GI symptoms. Back then the patient had symptoms of nausea vomiting and diarrhea, patient was also seen by Dr. Ojeda on consultation, and she recommended mostly symptomatic and supportive care, she recommended Bentyl for this patient. Did not feel a need for colonoscopy or endoscopic evaluation. Based on her note, patient was felt to have uncomplicated colitis, possibly infectious in nature, patient was given Flagyl at the time and Rocephin was discontinued. At any rate the patient is having similar symptoms, as a affect according to her symptoms never resolved. She continues to have at least 5-6 bowel movements every day. Describes the stool as watery stools, nonbloody, and associated with some abdominal cramps, no nausea no vomiting, no fever no chills. Pulmonary- torres, the patient has moderate severe COPD, and I was asked to see her on consultation, however her pulmonary symptoms are nonexistent at present, and her pulmonary issues seem to be the least of her problem at this point. Labs on this admission showed relatively normal CBC WBC count is 16.9, hemoglobin is 12.2, and she had a relatively normal electrolytes. Sodium is a bit low at 133. On today's evaluation of 02/10/2022, the patient's diarrhea has subsided and slowing down. She is feeling better. Brester status is also stable. We'll consulted on her because of her underlying COPD. The patient was seen in consultation by Dr. Borrego yesterday. She remains on IV fluids no saline at the rate of 75 mL's an hour. Her breathing is nonlabored. No chest pain. No significant cough sputum production chest tightness or wheezing. The CAT scan of the abdomen showed no evidence of any pancreatic mass. There is some cho lecystectomy changes in the right and narrowing at the level of ampulla of later that may potentially reflect a stricture. Nevertheless, the patient's blood work showed no evidence of any abnormal LFTs. Amylase and lipase were also within normal limits. UA was negative. The white cell count was at 9.6 with a hemoglobin of 10.3 and a platelet count of 410. The rest of the electrolytes are all within normal limits. The end is a 23 with a creatinine of 0.9 and a calcium level of 7.5. On today's evaluation of 02/14/2022, the patient is normalized. Status. The patient is awaiting a colonoscopy. The patient was unable to take the bowel prep yesterday. This will be completed today. No other complaints otherwise for now. Her diarrhea has subsided. Objective - Vital Signs Vital signs: Vital Signs Temp 98.5 F 02/14/22 12:19 Pulse 95 02/14/22 12:19 Resp 16 02/14/22 12:19 BP 92/68 02/14/22 12:19 Pulse Ox 98 02/14/22 12:19 FiO2 Intake & Output 02/13/22 02/14/22 02/14/22 18:59 06:59 18:59 Intake Total 1380 Output Total 900 300 Balance -900 1380 -300 Weight 68.039 kg Intake: Intake, IV Titration 900 Amount Sodium Chloride 0.9% 1, 900 000 ml @ 75 mls/hr IV . [id number] [facility] Rx#:[id number] Oral 480 Output: Stool 900 300 Other: Voiding Method Bedside Commode Bedside Commode Bedside Commode Diaper Diaper Diaper Incontinent Incontinent Incontinent # Voids 1 1 # Bowel Movements 3 - Exam General appearance: Revealed a 76-year-old female in no distress. She is on RA Head: Atraumatic, normocephalic. HEENT: PERRLA, EOMI, nonicteric, moist mucous membranes Neck: Supple without lymphadenopathy. Trachea midline. Heart: Distant S1 and S2, no S3 gallop. Lungs: Symmetrical chest expansion clear throughout no crackles or rhonchi or wheezes Abdomen: Soft nontender no megaly no rebound no guarding. Positive bowel sounds. Extremities: No clubbing, no edema, no cyanosis. Neurological: Alert and oriented 3 no gross focal deficits. Psychiatric: Normal mood affect and normal mental status examination. Skin: No rashes. - Labs CBC & Chem 7: 02/13/22 05:55 02/13/22 05:55 Assessment and Plan Plan: Chronic diarrhea, exact etiology is not clear, under investigation. clinically improving History of COPD, moderately severe, presently inactive. Remote history of DVT. Benign essential hypertension. History of cardiac ablation. Generalized anxiety disorder. Degenerative joint disease. GERD without esophagitis. History of bowel resection. History of underlying coronary arteriosclerosis and previous stent placement. Recommendation: Continue present supportive care measures, Resume home meds. Awaiting colonoscopy Complete the bowel prep Her pulmonary status seems to be relatively stable. We will continue to follow.
--- NOTE | 2022-02-14 16:01 | P.PN ---
Subjective Patient is a 76-year-old female with a known history of COPD, hypertension, GERD, history of DVT, coronary artery disease history of stent placement, anxiety/depression and previous history of smoking and daily alcohol use presents to ER with complaints of dizziness. Patient has been having diarrhea for the past couple of months and was in the hospital previously patient was sent to Rehab and was recently discharged home. Patient still has been having loose stool. However denies any complaints of abdominal pain. No chest pain or shortness of breath. No nausea or vomiting. On admission patient was found to be hypotensive with blood pressure 87/62 pulse is 118 respiration 18 and pulse ox 97% on room air Chest x-ray showed chronic changes without acute pulmonary process. KUB x-ray showed overall nonspecific but favored nonobstructive bowel gas pattern. Moderate to severe proximal chronic fecal stasis is felt present currently. EKG showed sinus tachycardia Laboratory showed WBC 16.9 hemoglobin 12.2 and platelets 545 Sodium 130 potassium 4.9 chloride 96 BUN 31 and creatinine 1.63 and lipase 20 albumin 2.4 Urinalysis is negative for infection. 02/12/2022. Patient is currently resting in the bed. Awake alert and oriented x3. Still having diarrhea. Occasional cramping abdominal pain. No nausea or vomiting. No cough or sputum production. No complaints of chest pain or shortness of breath. Laboratory data showed WBC 12.6 hemoglobin 12.1 and platelets 342 Sodium 133 potassium 4.9 chloride 103 BUN 27 creatinine 1.09 and blood sugar 64 and calcium 7.5 Patient is being continued on IV hydration with normal saline and electrolyte replacement. Renal function is improving. 02/13/2022. Patient is resting in the bed. Awake alert and oriented.. No complaints of chest pain or shortness of breath. Continues to have diarrhea. Blood pressure is stable and improved. Patient was seen by gastroenterology and is planning f or colonoscopy. Patient has been afebrile. No nausea vomiting abdominal pain or diarrhea. Laboratory data showed WBC trending down to 9.6 hemoglobin 10.3 and platelets 410 Sodium 135, potassium 3.7 chloride 107 BUN 23 and creatinine 0.96 and calcium 7.5. Subjective: Resume in the care of the patient on 02/14/2022 Patient states that her diarrhea improving from 5 bouts daily on admission, yesterday she had only 2 bowel movements. No nausea vomiting, no abdominal pain. No more dizziness. Stool studies are pending EGD and colonoscopy to be done by GI team We will order PT/OT because patient feels generally weak Objective - Vital Signs Vital signs: Vital Signs Temp 97.6 F 02/14/22 09:45 Pulse 94 02/14/22 11:36 Resp 18 02/14/22 11:36 BP 93/65 02/14/22 09:45 Pulse Ox 98 02/14/22 09:45 FiO2 Intake & Output 02/13/22 02/14/22 02/14/22 18:59 06:59 18:59 Intake Total 1380 Output Total 900 Balance -900 1380 Weight 68.039 kg Intake: Intake, IV Titration 900 Amount Sodium Chloride 0.9% 1, 900 000 ml @ 75 mls/hr IV . [id number] [facility] Rx#:[id number] Oral 480 Output: Stool 900 Other: Voiding Method Bedside Commode Bedside Commode Diaper Diaper Incontinent Incontinent # Voids 1 1 # Bowel Movements 3 - Exam GENERAL: The patient is alert and oriented x3, not in any acute distress. Well developed, well nourished. HEENT: Pupils are round and equally reacting to light. EOMI. No scleral icterus. No conjunctival pallor. Normocephalic, atraumatic. No pharyngeal erythema. No thyromegaly. CARDIOVASCULAR: S1 and S2 present. No murmurs, rubs, or gallops. PULMONARY: Chest is clear to auscultation, no wheezing or crackles. ABDOMEN: Soft, nontender, nondistended, normoactive bowel sounds. No palpable organomegaly. MUSCULOSKELETAL: No joint swelling or deformity. EXTREMITIES: No cyanosis, clubbing, or pedal edema. NEUROLOGICAL: Gross neurological examination did not reveal any focal deficits. SKIN: No rashes. no petechiae. - Labs CBC & Chem 7: 02/13/22 05:55 02/13/22 05:55 Assessment and Plan Assessment: Diarrhea possible overflow incontinence versus colitis. Dehydration and hypovolemia, resolving Generalized weakness Acute kidney injury likely prerenal. Resolved Hypovolemic hyponatremia. Improved Leukocytosis likely reactive. Back to normal Coronary disease history of stent placement COPD not in exacerbation Hypertension Osteoarthritis GERD Anxiety/depression Please history of smoking Plan: This is a pleasant 76 years old female who presents with diarrhea and hypertension Continue with normal saline Patient to undergo EGD/colonoscopy GI service team following the patient Pulmonary team on the case Labs and medication were reviewed.. Continue same treatment. Continue with symptomatic treatment. Resume home medication. Monitor lytes and vitals. DVT and GI prophylaxis. Further recommendations as per clinical course of the patient DVT prophylaxis: Subcutaneous heparin GI Prophylaxis: Ppi
[2022-02-14] MEDS: ASPIRIN 81 MG PO SCH (18:06)
[2022-02-14] MEDS: POTASSIUM CHLORIDE ER 20 MEQ TAB.ER PO SCH (18:06)
[2022-02-14] MEDS: ASCORBIC ACID 500 MG TAB PO SCH (18:07)
[2022-02-14] MEDS: CHOLECALCIFEROL 25 MCG (1000 IU) TABLET PO SCH (18:07)
[2022-02-14] MEDS: CALCIUM CARB-VIT D 500 MG-5 MCG TAB PO SCH (18:07)
[2022-02-15] MEDS: PANTOPRAZOLE 40 MG TABLET PO SCH (06:42)
[2022-02-15] MEDS: SODIUM CHLORIDE 0.9% 1,000 ML IV SCH ×2 (06:52→21:01)
[2022-02-15] MEDS: IPRATROPIUM-ALBUTEROL 3 ML NEB INHALATION SCH ×4 (07:17→21:07)
[2022-02-15] MEDS: SYMBICORT 160-4.5 MCG INHALER INHALATION SCH ×2 (07:17→21:09)
[2022-02-15] MEDS: HEPARIN SODIUM,PORCINE/PF 5,000 UNIT/0.5 ML SYRINGE SQ SCH ×3 (07:45→23:15)
[2022-02-15 09:51] LABS: Anisocytosis Slight; HCT 34.5 % (34.0-46.0); HGB 10.6 gm/dL (11.4-16.0); Hypochromasia Moderate; MCH 29.3 pg (25.0-35.0); MCHC 30.8 g/dL (31.0-37.0); MCV 95.3 fL (80.0-100.0); Mean Platelet Volume 7.3; Platelet Count 422 k/uL (150-450); RBC 3.62 m/uL (3.80-5.40); RDW 16.9 % (11.5-15.5); WBC 9.2 k/uL (3.8-10.6)
[2022-02-15 10:07] LABS: Calcium 6.9 mg/dL (8.4-10.2); Magnesium 1.7 mg/dL (1.6-2.3); Potassium 3.9 mmol/L (3.5-5.1)
--- NOTE | 2022-02-15 11:29 | P.PN ---
Subjective Progress Note Date: 02/15/22 This is a 76-year-old female, known history of multiple medical problems including COPD, deep vein thrombosis, hypertension, previous bowel resection, previous cardiac ablation, patient came in with persistent diarrhea for the last 2 months. Patient was actually admitted to this hospital back on 01/06/2022, and she was seen at this time by many consultants including general surgery for her GI symptoms. Back then the patient had symptoms of nausea vomiting and diarrhea, patient was also seen by Dr. Ojeda on consultation, and she recommended mostly symptomatic and supportive care, she recommended Bentyl for this patient. Did not feel a need for colonoscopy or endoscopic evaluation. Based on her note, patient was felt to have uncomplicated colitis, possibly infectious in nature, patient was given Flagyl at the time and Rocephin was discontinued. At any rate the patient is having similar symptoms, as a affect according to her symptoms never resolved. She continues to have at least 5-6 bowel movements every day. Describes the stool as watery stools, nonbloody, and associated with some abdominal cramps, no nausea no vomiting, no fever no chills. Pulmonary- torres, the patient has moderate severe COPD, and I was asked to see her on consultation, however her pulmonary symptoms are nonexistent at present, and her pulmonary issues seem to be the least of her problem at this point. Labs on this admission showed relatively normal CBC WBC count is 16.9, hemoglobin is 12.2, and she had a relatively normal electrolytes. Sodium is a bit low at 133. On today's evaluation of 02/10/2022, the patient's diarrhea has subsided and slowing down. She is feeling better. Brester status is also stable. We'll consulted on her because of her underlying COPD. The patient was seen in consultation by Dr. Borrego yesterday. She remains on IV fluids no saline at the rate of 75 mL's an hour. Her breathing is nonlabored. No chest pain. No significant cough sputum production chest tightness or wheezing. The CAT scan of the abdomen showed no evidence of any pancreatic mass. There is some betsy cystectomy changes in the right and narrowing at the level of ampulla of later that may potentially reflect a stricture. Nevertheless, the patient's blood work showed no evidence of any abnormal LFTs. Amylase and lipase were also within normal limits. UA was negative. The white cell count was at 9.6 with a hemoglobin of 10.3 and a platelet count of 410. The rest of the electrolytes are all within normal limits. The end is a 23 with a creatinine of 0.9 and a calcium level of 7.5. On today's evaluation of 02/14/2022, the patient is normalized. Status. The patient is awaiting a colonoscopy. The patient was unable to take the bowel prep yesterday. This will be completed today. No other complaints otherwise for now. Her diarrhea has subsided. On 02/15/2022 patient is seen in follow-up on selective care unit, she is awake and alert, oriented 3, she denies any pulmonary complaints, no worsening dyspnea, no cough, no wheezing, lung sounds are clear, diminished at the bases. She is maintaining stable O2 saturations on room air pulse ox is 97% on room air. Afebrile. Patient is going for EGD and colonoscopy today, she did finish her bowel prep. She is feeling thirsty, but otherwise no complaints, no abdominal pain, no nausea or vomiting, she is on IV fluids at 75 ML per hour. She is on Symbicort, she is on DuoNeb nebulized treatments. Her lungs are clear. Vital signs have been stable overnight. Today's labs have been reviewed, with little, is 9.2, hemoglobin is 10.6, platelet count is 422, electrolytes are within normal limits, BUN is 21 creatinine 0.82. Objective - Vital Signs Vital signs: Vital Signs Temp 97.9 F 02/15/22 08:00 Pulse 90 02/15/22 08:00 Resp 17 02/15/22 08:00 BP 98/63 02/15/22 08:00 Pulse Ox 97 02/15/22 08:00 FiO2 Intake & Output 02/14/22 02/15/22 02/15/22 18:59 06:59 18:59 Intake Total 960 Output Total 300 Balance 660 Weight 67.8 kg Intake: Oral 960 Output: Stool 300 Other: Voiding Method Bedside Commode Bedside Commode Diaper Diaper Incontinent Incontinent # Voids 1 # Bowel Movements 2 2 - Exam General appearance: Revealed a 76-year-old female in no distress. She is on RA Head: Atraumatic, normocephalic. HEENT: PERRLA, EOMI, nonicteric, moist mucous membranes Neck: Supple without lymphadenopathy. Trachea midline. Heart: Distant S1 and S2, no S3 gallop. Lungs: Symmetrical chest expansion clear throughout no crackles or rhonchi or wheezes Abdomen: Soft nontender no megaly no rebound no guarding. Positive bowel sounds. Extremities: No clubbing, no edema, no cyanosis. Neurological: Alert and oriented 3 no gross focal deficits. Psychiatric: Normal mood affect and normal mental status examination. Skin: No rashes. - Labs CBC & Chem 7: 02/15/22 08:40 02/15/22 08:40 Labs: Abnormal Lab Results - Last 24 Hours (Table) 02/15/22 02/15/22 Range/Units 08:40 08:40 RBC 3.62 L (3.80-5.40) m/uL Hgb 10.6 L (11.4-16.0) gm/dL MCHC 30.8 L (31.0-37.0) g/dL RDW 16.9 H (11.5-15.5) % BUN 21 H (7-17) mg/dL Glucose 71 L (74-99) mg/dL Calcium 6.9 L (8.4-10.2) mg/dL Assessment and Plan Plan: Chronic diarrhea, exact etiology is not clear, under investigation. clinically improving History of COPD, moderately severe, presently inactive. Remote history of DVT. Benign essential hypertension. History of cardiac ablation. Generalized anxiety disorder. Degenerative joint disease. GERD without esophagitis. History of bowel resection. History of underlying coronary arteriosclerosis and previous stent placement. Plan: No pulmonary complaints COPD remains stable Continue Symbicort and DuoNeb Patient is going for EGD and colonoscopy today General surgery recommendations Pulmonary/critical care service will sign off and follow on as-needed basis I have personally seen and examined the patient, performed the documentation and the assessment and plan as written. Number of minutes spent on the visit: [10] this patient was seen in conjunction with the nurse practitioner. The patient COPD stable. The patient is going to undergo a colonoscopy today. No need for any further intervention from the pulmonary standpoint. For now, pulmonary critical care services will sign off the case. Time with Patient: Less than 30
[2022-02-15] MEDS ORDERED: LIDOCAINE 2% INJ 20 MG/ML (2 ML VIAL) ONE (12:02)
[2022-02-15] MEDS ORDERED: PROPOFOL 10 MG/ML 20 ML VIAL IV ONE (12:02)
[2022-02-15] MEDS ORDERED: IV FLUID CONTINUATION 1,000 ML IV ONE (12:24)
--- NOTE | 2022-02-15 12:27 | P.PCN ---
Date of Procedure: 02/15/22 Procedure(s) Performed: Brief history: Patient is a pleasant 76-year-old white female admitted hospital with chronic diarrhea of 2 months duration. She has bowel movements anywhere from 5-6 a day which are loose to watery in consistency with no blood or mucus in the stool. Stool studies were negative. She is scheduled for an upper endoscopy as well as colonoscopy as a part of evaluation of chronic diarrhea. Procedure performed: Esophagogastroduodenoscopy with biopsy Colonoscopy with biopsy Preoperative diagnosis: Abdominal pain Chronic diarrhea of 2 months duration Anesthesia: MAC Procedure: After informed consent was obtained from the patient was brought into the endoscopy unit and IV sedation was administered by anesthesia under continuous monitoring. Initially upper endoscopy was done. The Olympus GF 160 video endoscope was inserted inserted into the mouth and esophagus intubated without any difficulty and was gradually advanced into the stomach and duodenum and carefully examined. The bulb and second part of the duodenum appeared normal biopsies were done from the duodenum to rule out celiac disease.. The scope was then withdrawn into the stomach adequately insufflated with air and upon careful examination the antrum and body, cardia and fundus appeared normal. The scope was then withdrawn into the esophagus. The GE junction was located at 36 cm to the incisors. There were linear erosions in the distal esophagus consistent with LA grade B reflux esophagitis Rest of the esophagus appeared normal. Patient tolerated the procedure well. At this time the patient continued to remain sedation. Initial digital rectal examination was normal. Olympus CF 160 video colonoscope was then inserted into the rectum and gradually advanced to the cecum without any difficulty. Careful examination was performed as the scope was gradually being withdrawn. The prep was excellent. The cecum, ascending colon, appeared normal. Mucosa of the transverse colon, descending colon, sigmoid colon and rectum had severe colitis with serpiginous ulcerations with cobblestoning of the mucosa with friability consistent with inflammatory bowel disease possibly Crohn's colitis. Multiple biopsies Biopsies were done from ascending and, sigmoid colon and rectum. Retroflexion was performed in the rectum and no lesions were noted. Patient tolerated the procedure well. Impression: 1. Upper endoscopy revealed small hiatal hernia and LA grade B reflux esophagitis 2. Colonoscopy revealed severe colitis and multiple serpiginous ulcerations and cobblestoning of the mucosa involving the rectum to the transverse colon with friable mucosa status post multiple biopsies. The cecum and ascending colon as well as terminal ileum appeared normal Recommendations: Findings of this examination were discussed with the patient . Await biopsy results. Will start her on IV steroids and solid without any milligrams every 8 hours. Follow up in office in 2 weeks.
[2022-02-15] MEDS: FUROSEMIDE 20 MG TAB PO SCH (12:47)
[2022-02-15] MEDS: VITAMIN E (DL,TOCOPHERYL ACET) 400 UNIT (180 MG) CAP PO SCH ×2 (12:47→21:00)
[2022-02-15] MEDS: DICYCLOMINE 10 MG CAP PO SCH (12:47)
[2022-02-15] MEDS: METOPROLOL TARTRATE 25 MG TAB PO SCH ×2 (12:47→21:00)
[2022-02-15 14:13] LABS: Band Neutrophils % 5 %; Basophils # (M) 0.09 k/uL (0-0.2); Eosinophils # (M) 0.09 k/uL (0-0.7); Lymphocytes # (M) 1.75 k/uL (1.0-4.8); Metamyelocytes # (M) 0.09 k/uL (0); Metamyelocytes % 1 %; Monocytes # (M) 0.55 k/uL (0-1.0); Myelocytes # (M) 0.09 k/uL (0); Myelocytes % 1 %; Neutrophils % (M) 68 %; Nucleated Red Blood Cells 0 /100 WBC (0-0); Total Cells Counted 200; Toxic Granulation Present
[2022-02-15] MEDS: methylPREDNISolone SOD SUCCI 40 MG/ML 1 ML VIAL IV SCH ×2 (16:02→23:15)
[2022-02-15] MEDS: DULoxetine HCL 30 MG CAPSULE.DR PO SCH (16:03)
[2022-02-15] MEDS: ASCORBIC ACID 500 MG TAB PO SCH (18:15)
[2022-02-15] MEDS: CALCIUM CARB-VIT D 500 MG-5 MCG TAB PO SCH (18:16)
[2022-02-15] MEDS: ASPIRIN 81 MG PO SCH (18:16)
[2022-02-15] MEDS: POTASSIUM CHLORIDE ER 20 MEQ TAB.ER PO SCH (18:16)
[2022-02-15] MEDS: CHOLECALCIFEROL 25 MCG (1000 IU) TABLET PO SCH (18:16)
--- NOTE | 2022-02-15 20:04 | P.PN ---
Subjective Patient is a 76-year-old female with a known history of COPD, hypertension, GERD, history of DVT, coronary artery disease history of stent placement, anxiety/depression and previous history of smoking and daily alcohol use presents to ER with complaints of dizziness. Patient has been having diarrhea for the past couple of months and was in the hospital previously patient was sent to Rehab and was recently discharged home. Patient still has been having loose stool. However denies any complaints of abdominal pain. No chest pain or shortness of breath. No nausea or vomiting. On admission patient was found to be hypotensive with blood pressure 87/62 pulse is 118 respiration 18 and pulse ox 97% on room air Chest x-ray showed chronic changes without acute pulmonary process. KUB x-ray showed overall nonspecific but favored nonobstructive bowel gas pattern. Moderate to severe proximal chronic fecal stasis is felt present currently. EKG showed sinus tachycardia Laboratory showed WBC 16.9 hemoglobin 12.2 and platelets 545 Sodium 130 potassium 4.9 chloride 96 BUN 31 and creatinine 1.63 and lipase 20 albumin 2.4 Urinalysis is negative for infection. 02/12/2022. Patient is currently resting in the bed. Awake alert and oriented x3. Still having diarrhea. Occasional cramping abdominal pain. No nausea or vomiting. No cough or sputum production. No complaints of chest pain or shortness of breath. Laboratory data showed WBC 12.6 hemoglobin 12.1 and platelets 342 Sodium 133 potassium 4.9 chloride 103 BUN 27 creatinine 1.09 and blood sugar 64 and calcium 7.5 Patient is being continued on IV hydration with normal saline and electrolyte replacement. Renal function is improving. 02/13/2022. Patient is resting in the bed. Awake alert and oriented.. No complaints of chest pain or shortness of breath. Continues to have diarrhea. Blood pressure is stable and improved. Patient was seen by gastroenterology and is planning f or colonoscopy. Patient has been afebrile. No nausea vomiting abdominal pain or diarrhea. Laboratory data showed WBC trending down to 9.6 hemoglobin 10.3 and platelets 410 Sodium 135, potassium 3.7 chloride 107 BUN 23 and creatinine 0.96 and calcium 7.5. Subjective: Resume in the care of the patient on 02/14/2022 Patient states that her diarrhea improving from 5 bouts daily on admission, yesterday she had only 2 bowel movements. No nausea vomiting, no abdominal pain. No more dizziness. Stool studies are pending EGD and colonoscopy to be done by GI team We will order PT/OT because patient feels generally weak 02/15/2022 patient still have diarrhea, no significant abdominal pain. He was nothing by mouth today and he underwent EGD and colonoscopy, showing esophagitis and severe colitis with multiple ulceration and cobblestoning of the rectum and up to the transverse colon, inflammatory bowel disease is suspected and patient was started on Solu-Medrol 20 mg 3 times a day per GI team. Also stool studies and C. diff this is requested. Biopsy still pending. We will check ESR and CRP Objective - Vital Signs Vital signs: Vital Signs Temp 98.0 F 02/15/22 11:59 Pulse 91 02/15/22 11:59 Resp 17 02/15/22 11:59 BP 112/59 02/15/22 11:59 Pulse Ox 96 02/15/22 11:59 FiO2 Intake & Output 02/14/22 02/15/22 02/15/22 18:59 06:59 18:59 Intake Total 960 200 Output Total 300 Balance 660 200 Weight 67.8 kg Intake: IV 200 Oral 960 Output: Stool 300 Other: Voiding Method Bedside Commode Bedside Commode Diaper Diaper Incontinent Incontinent # Voids 1 # Bowel Movements 2 2 - Exam GENERAL: The patient is alert and oriented x3, not in any acute distress. Well developed, well nourished. HEENT: Pupils are round and equally reacting to light. EOMI. No scleral icterus. No conjunctival pallor. Normocephalic, atraumatic. No pharyngeal erythema. No thyromegaly. CARDIOVASCULAR: S1 and S2 present. No murmurs, rubs, or gallops. PULMONARY: Chest is clear to auscultation, no wheezing or crackles. ABDOMEN: Soft, nontender, nondistended, normoactive bowel sounds. No palpable organomegaly. MUSCULOSKELETAL: No joint swelling or deformity. EXTREMITIES: No cyanosis, clubbing, or pedal edema. NEUROLOGICAL: Gross neurological examination did not reveal any focal deficits. SKIN: No rashes. no petechiae. - Labs CBC & Chem 7: 02/15/22 08:40 02/15/22 08:40 Labs: Abnormal Lab Results - Last 24 Hours (Table) 02/15/22 02/15/22 Range/Units 08:40 08:40 RBC 3.62 L (3.80-5.40) m/uL Hgb 10.6 L (11.4-16.0) gm/dL MCHC 30.8 L (31.0-37.0) g/dL RDW 16.9 H (11.5-15.5) % BUN 21 H (7-17) mg/dL Glucose 71 L (74-99) mg/dL Calcium 6.9 L (8.4-10.2) mg/dL Assessment and Plan Assessment: Diarrhea secondary with severe colitis and multiple ulceration on cobblestone appearance of the rectum and up to transverse(On colonoscopy), inflammatory bowel disease is suspected versus other Dehydration and hypovolemia, resolving Generalized weakness Acute kidney injury likely prerenal. Resolved Hypovolemic hyponatremia. Improved Leukocytosis likely reactive. Back to normal Coronary disease history of stent placement COPD not in exacerbation Hypertension Osteoarthritis GERD Anxiety/depression Please history of smoking Plan: This is a pleasant 76 years old female who presents with diarrhea and hypertension Continue with normal saline Continue with IV Solu-Medrol Follow-up stool studies Check ESR and CRP GI service team following the patient, however they signed off for now, not available in this facility for the rest of the week and weekend Pulmonary team on the case. igned off Labs and medication were reviewed.. Continue same treatment. Continue with symptomatic treatment. Resume home medication. Monitor lytes and vitals. DVT and GI prophylaxis. Further recommendations as per clinical course of the patient DVT prophylaxis: Subcutaneous heparin GI Prophylaxis: Ppi
[2022-02-15 20:06] LABS: Glucose,Whole Blood 103 mg/dL (75-99)
[2022-02-16 06:20] LABS: Glucose,Whole Blood 151 mg/dL (75-99)
[2022-02-16] MEDS: PANTOPRAZOLE 40 MG TABLET PO SCH (06:29)
[2022-02-16] MEDS: IPRATROPIUM-ALBUTEROL 3 ML NEB INHALATION SCH ×4 (07:59→19:56)
[2022-02-16] MEDS: SYMBICORT 160-4.5 MCG INHALER INHALATION SCH ×2 (07:59→19:56)
[2022-02-16] MEDS: methylPREDNISolone SOD SUCCI 40 MG/ML 1 ML VIAL IV SCH ×3 (09:21→23:28)
[2022-02-16] MEDS: HEPARIN SODIUM,PORCINE/PF 5,000 UNIT/0.5 ML SYRINGE SQ SCH ×3 (09:21→23:26)
[2022-02-16] MEDS: FUROSEMIDE 20 MG TAB PO SCH (09:22)
[2022-02-16] MEDS: VITAMIN E (DL,TOCOPHERYL ACET) 400 UNIT (180 MG) CAP PO SCH ×2 (09:22→20:29)
[2022-02-16] MEDS: DULoxetine HCL 30 MG CAPSULE.DR PO SCH (09:22)
[2022-02-16] MEDS: METOPROLOL TARTRATE 25 MG TAB PO SCH ×2 (09:23→20:29)
[2022-02-16] MEDS: SODIUM CHLORIDE 0.9% 1,000 ML IV SCH ×2 (09:26→20:30)
--- NOTE | 2022-02-16 14:47 | P.PN ---
Subjective Progress Note Date: 02/16/22 This is a 76-year-old female, known history of multiple medical problems including COPD, deep vein thrombosis, hypertension, previous bowel resection, previous cardiac ablation, patient came in with persistent diarrhea for the last 2 months. Patient was actually admitted to this hospital back on 01/06/2022, and she was seen at this time by many consultants including general surgery for her GI symptoms. Back then the patient had symptoms of nausea vomiting and diarrhea, patient was also seen by Dr. Ojeda on consultation, and she recommended mostly symptomatic and supportive care, she recommended Bentyl for this patient. Did not feel a need for colonoscopy or endoscopic evaluation. Based on her note, patient was felt to have uncomplicated colitis, possibly infectious in nature, patient was given Flagyl at the time and Rocephin was discontinued. At any rate the patient is having similar symptoms, as a affect according to her symptoms never resolved. She continues to have at least 5-6 bowel movements every day. Describes the stool as watery stools, nonbloody, and associated with some abdominal cramps, no nausea no vomiting, no fever no chills. Pulmonary- torres, the patient has moderate severe COPD, and I was asked to see her on consultation, however her pulmonary symptoms are nonexistent at present, and her pulmonary issues seem to be the least of her problem at this point. Labs on this admission showed relatively normal CBC WBC count is 16.9, hemoglobin is 12.2, and she had a relatively normal electrolytes. Sodium is a bit low at 133. On today's evaluation of 02/10/2022, the patient's diarrhea has subsided and slowing down. She is feeling better. Brester status is also stable. We'll consulted on her because of her underlying COPD. The patient was seen in consultation by Dr. Borrego yesterday. She remains on IV fluids no saline at the rate of 75 mL's an hour. Her breathing is nonlabored. No chest pain. No significant cough sputum production chest tightness or wheezing. The CAT scan of the abdomen showed no evidence of any pancreatic mass. There is some chol ecystectomy changes in the right and narrowing at the level of ampulla of later that may potentially reflect a stricture. Nevertheless, the patient's blood work showed no evidence of any abnormal LFTs. Amylase and lipase were also within normal limits. UA was negative. The white cell count was at 9.6 with a hemoglobin of 10.3 and a platelet count of 410. The rest of the electrolytes are all within normal limits. The end is a 23 with a creatinine of 0.9 and a calcium level of 7.5. On today's evaluation of 02/14/2022, the patient is normalized. Status. The patient is awaiting a colonoscopy. The patient was unable to take the bowel prep yesterday. This will be completed today. No other complaints otherwise for now. Her diarrhea has subsided. On 02/15/2022 patient is seen in follow-up on selective care unit, she is awake and alert, oriented 3, she denies any pulmonary complaints, no worsening dyspnea, no cough, no wheezing, lung sounds are clear, diminished at the bases. She is maintaining stable O2 saturations on room air pulse ox is 97% on room air. Afebrile. Patient is going for EGD and colonoscopy today, she did finish her bowel prep. She is feeling thirsty, but otherwise no complaints, no abdominal pain, no nausea or vomiting, she is on IV fluids at 75 ML per hour. She is on Symbicort, she is on DuoNeb nebulized treatments. Her lungs are clear. Vital signs have been stable overnight. Today's labs have been reviewed, with little, is 9.2, hemoglobin is 10.6, platelet count is 422, electrolytes are within normal limits, BUN is 21 creatinine 0.82. Patient is seen today 02/16/2022 in follow-up on selective care unit. She is currently sitting up in bed. Awake and alert in no acute distress. She did undergo endoscopy with biopsies yesterday. Diarrhea currently. Blood sugar 151. He is maintaining good O2 saturations in the mid 90s on 2 L/m nasal cannula. Afebrile. He is continued on Symbicort, DuoNeb inhalations, IV Solu- Medrol. He is continued on hospice for DVT prophylaxis. Remains on diuretics. Continued on Protonix. Objective - Vital Signs Vital signs: Vital Signs Temp 98.2 F 02/16/22 08:00 Pulse 85 02/16/22 08:09 Resp 17 02/16/22 08:00 BP 112/72 02/16/22 08:00 Pulse Ox 97 02/16/22 08:04 FiO2 Intake & Output 02/15/22 02/16/22 02/16/22 18:59 06:59 18:59 Intake Total 200 180 Output Total 0 Balance 200 0 180 Weight 67.8 kg Intake: IV 200 Oral 180 Output: Urine 0 Other: Voiding Method Bedside Commode Bedside Commode Diaper Diaper Incontinent # Voids 1 1 # Bowel Movements 1 1 - Exam General appearance: Revealed a 76-year-old very pleasant female in no distress. She is on RA Head: Atraumatic, normocephalic. HEENT: PERRLA, EOMI, nonicteric, moist mucous membranes Neck: Supple without lymphadenopathy. Trachea midline. Heart: Distant S1 and S2, no S3 gallop. Lungs: Symmetrical chest expansion clear throughout no crackles or rhonchi or wheezes Abdomen: Soft nontender no megaly no rebound no guarding. Positive bowel sounds. Extremities: No clubbing, no edema, no cyanosis. Neurological: Alert and oriented 3 no gross focal deficits. Psychiatric: Normal mood affect and normal mental status examination. Skin: No rashes. - Labs CBC & Chem 7: 02/15/22 08:40 02/15/22 08:40 Labs: Abnormal Lab Results - Last 24 Hours (Table) 02/15/22 02/15/22 02/15/22 Range/Units 08:40 08:40 08:40 Metamyelocytes # (Man) 0.09 H (0) k/uL Myelocytes # (Manual) 0.09 H (0) k/uL ESR 28 H (0-20) mm/hr POC Glucose (mg/dL) (75-99) mg/dL C-Reactive Protein 16.2 H (<1.0) mg/dL 02/15/22 02/16/22 Range/Units 20:04 06:17 Metamyelocytes # (Man) (0) k/uL Myelocytes # (Manual) (0) k/uL ESR (0-20) mm/hr POC Glucose (mg/dL) 103 H 151 H (75-99) mg/dL C-Reactive Protein (<1.0) mg/dL Assessment and Plan Assessment: Chronic diarrhea, exact etiology is not clear, under investigation. clinically improving. Post colonoscopy with biopsies. Pathology is pending. History of COPD, moderately severe, presently inactive. Remote history of DVT. Benign essential hypertension. History of cardiac ablation. Generalized anxiety disorder. Degenerative joint disease. GERD without esophagitis. History of bowel resection. History of underlying coronary arteriosclerosis and previous stent placement. Plan: The patient was seen and evaluated Currently stable and on 2 L Continue current pulmonary medications GI services is following I have personally seen and examined the patient, performed the documentation and the assessment and plan as written. Number of minutes spent on the visit: 10. I have personally seen and examined the patient and reviewed the documentation. I performed a joint evaluation with the nurse practitioner in this evaluation was done more than 10 minutes. I fully agree with the documentation above and the plan of care. The patient is clinically stable for now. The patient doing well. No specific complaints. She was started on steroids regarding her colitis. Colonoscopy was noted. Her diarrhea is subsiding. We'll follow up on this patient on medicine basis. Her COPD stable.
[2022-02-16 14:48] LABS: Glucose,Whole Blood 151 mg/dL (75-99)
[2022-02-16 14:50] VITALS: BMI 24.8
[2022-02-16 15:01] LABS: Glucose,Whole Blood 323 mg/dL (75-99)
[2022-02-16] MEDS ORDERED: SIMETHICONE 80 MG CHEWABLE PO PRN (15:52)
[2022-02-16 16:28] LABS: Glucose,Whole Blood 267 mg/dL (75-99)
[2022-02-16] MEDS: INSULIN ASPART (NovoLOG) 100 UNIT/ML VIAL SQ SCH ×2 (17:29→21:15)
[2022-02-16] MEDS: CALCIUM CARB-VIT D 500 MG-5 MCG TAB PO SCH (17:30)
[2022-02-16] MEDS: ASCORBIC ACID 500 MG TAB PO SCH (17:30)
[2022-02-16] MEDS ORDERED: INSULIN LISPRO (For Pump) 100 UNIT/ML VIAL SQ-PUMP SCH (17:30)
[2022-02-16] MEDS: ASPIRIN 81 MG PO SCH (17:30)
[2022-02-16] MEDS: CHOLECALCIFEROL 25 MCG (1000 IU) TABLET PO SCH (17:30)
[2022-02-16] MEDS: POTASSIUM CHLORIDE ER 20 MEQ TAB.ER PO SCH (17:31)
[2022-02-16 19:28] LABS: Glucose,Whole Blood 196 mg/dL (75-99)
[2022-02-16] MEDS ORDERED: SODIUM CHLORIDE 0.9% 500 ML 500 ML IV ONE (20:18)
--- NOTE | 2022-02-16 20:23 | P.PN ---
Subjective Patient is a 76-year-old female with a known history of COPD, hypertension, GERD, history of DVT, coronary artery disease history of stent placement, anxiety/depression and previous history of smoking and daily alcohol use presents to ER with complaints of dizziness. Patient has been having diarrhea for the past couple of months and was in the hospital previously patient was sent to Rehab and was recently discharged home. Patient still has been having loose stool. However denies any complaints of abdominal pain. No chest pain or shortness of breath. No nausea or vomiting. On admission patient was found to be hypotensive with blood pressure 87/62 pulse is 118 respiration 18 and pulse ox 97% on room air Chest x-ray showed chronic changes without acute pulmonary process. KUB x-ray showed overall nonspecific but favored nonobstructive bowel gas pattern. Moderate to severe proximal chronic fecal stasis is felt present currently. EKG showed sinus tachycardia Laboratory showed WBC 16.9 hemoglobin 12.2 and platelets 545 Sodium 130 potassium 4.9 chloride 96 BUN 31 and creatinine 1.63 and lipase 20 albumin 2.4 Urinalysis is negative for infection. 02/12/2022. Patient is currently resting in the bed. Awake alert and oriented x3. Still having diarrhea. Occasional cramping abdominal pain. No nausea or vomiting. No cough or sputum production. No complaints of chest pain or shortness of breath. Laboratory data showed WBC 12.6 hemoglobin 12.1 and platelets 342 Sodium 133 potassium 4.9 chloride 103 BUN 27 creatinine 1.09 and blood sugar 64 and calcium 7.5 Patient is being continued on IV hydration with normal saline and electrolyte replacement. Renal function is improving. 02/13/2022. Patient is resting in the bed. Awake alert and oriented.. No complaints of chest pain or shortness of breath. Continues to have diarrhea. Blood pressure is stable and improved. Patient was seen by gastroenterology and is planning f or colonoscopy. Patient has been afebrile. No nausea vomiting abdominal pain or diarrhea. Laboratory data showed WBC trending down to 9.6 hemoglobin 10.3 and platelets 410 Sodium 135, potassium 3.7 chloride 107 BUN 23 and creatinine 0.96 and calcium 7.5. Subjective: Resume in the care of the patient on 02/14/2022 Patient states that her diarrhea improving from 5 bouts daily on admission, yesterday she had only 2 bowel movements. No nausea vomiting, no abdominal pain. No more dizziness. Stool studies are pending EGD and colonoscopy to be done by GI team We will order PT/OT because patient feels generally weak 02/15/2022 patient still have diarrhea, no significant abdominal pain. He was nothing by mouth today and he underwent EGD and colonoscopy, showing esophagitis and severe colitis with multiple ulceration and cobblestoning of the rectum and up to the transverse colon, inflammatory bowel disease is suspected and patient was started on Solu-Medrol 20 mg 3 times a day per GI team. Also stool studies and C. diff this is requested. Biopsy still pending. We will check ESR and CRP 02/16/2022 Patient is awake and alert, abdominal pain and minimal today. As per patient but still she has diarrhea although it was not witnessed by staff. Patient still on IV steroids some Medrol 20 mg every 8 hours. Also normal saline 75 mL/h and aspirin 81 mg. Her ESR is elevated at 28 and CRP 16.2. Pulmonary team also phoned the case closely. The patient already evaluated by GI service. The evening her blood pressure was 94/62 and slightly tachycardic 109 area we will give him bolus of normal saline 500 mL. We will ask for surgery team evaluated the patient and abdominal x-ray tomorrow Objective - Vital Signs Vital signs: Vital Signs Temp 98.2 F 02/16/22 08:00 Pulse 85 02/16/22 08:09 Resp 17 02/16/22 08:00 BP 112/72 02/16/22 08:00 Pulse Ox 97 02/16/22 08:04 FiO2 Intake & Output 02/15/22 02/16/22 02/16/22 18:59 06:59 18:59 Intake Total 200 180 Output Total 0 Balance 200 0 180 Weight 67.8 kg 67.8 kg Intake: IV 200 Oral 180 Output: Urine 0 Other: Voiding Method Bedside Commode Bedside Commode Diaper Diaper Incontinent # Voids 1 1 # Bowel Movements 1 1 - Exam GENERAL: The patient is alert and oriented x3, not in any acute distress. Well developed, well nourished. HEENT: Pupils are round and equally reacting to light. EOMI. No scleral icterus. No conjunctival pallor. Normocephalic, atraumatic. No pharyngeal erythema. No thyromegaly. CARDIOVASCULAR: S1 and S2 present. No murmurs, rubs, or gallops. PULMONARY: Chest is clear to auscultation, no wheezing or crackles. -ABDOMEN: Soft, periumbilical tenderness, no rebound tenderness or guarding, nondistended, normoactive bowel sounds. No palpable organomegaly. MUSCULOSKELETAL: No joint swelling or deformity. EXTREMITIES: No cyanosis, clubbing, or pedal edema. NEUROLOGICAL: Gross neurological examination did not reveal any focal deficits. SKIN: No rashes. no petechiae. - Labs CBC & Chem 7: 02/15/22 08:40 02/15/22 08:40 Labs: Abnormal Lab Results - Last 24 Hours (Table) 02/15/22 02/15/22 02/15/22 Range/Units 08:40 08:40 08:40 Metamyelocytes # (Man) 0.09 H (0) k/uL Myelocytes # (Manual) 0.09 H (0) k/uL ESR 28 H (0-20) mm/hr POC Glucose (mg/dL) (75-99) mg/dL C-Reactive Protein 16.2 H (<1.0) mg/dL 02/15/22 02/16/22 Range/Units 20:04 06:17 Metamyelocytes # (Man) (0) k/uL Myelocytes # (Manual) (0) k/uL ESR (0-20) mm/hr POC Glucose (mg/dL) 103 H 151 H (75-99) mg/dL C-Reactive Protein (<1.0) mg/dL Assessment and Plan Assessment: Diarrhea secondary with severe colitis and multiple ulceration on cobblestone appearance of the rectum and up to transverse(On colonoscopy), inflammatory bowel disease is suspected versus other Dehydration and hypovolemia, resolving Generalized weakness Acute kidney injury likely prerenal. Resolved Hypovolemic hyponatremia. Improved Leukocytosis likely reactive. Back to normal Coronary disease history of stent placement COPD not in exacerbation Hypertension Osteoarthritis GERD Anxiety/depression Please history of smoking Plan: This is a pleasant 76 years old female who presents with diarrhea and hypertension Continue with normal saline Continue with IV Solu-Medrol Give normal saline bolus Follow-up stool studies Checked procalcitonin GI service team following the patient, however they signed off for now, not available in this facility for the rest of the week and weekend Pulmonary team on the case. We will check abdominal x-ray tomorrow and ask for surgical team evaluation. Labs and medication were reviewed.. Continue same treatment. Continue with symptomatic treatment. Resume home medication. Monitor lytes and vitals. DVT and GI prophylaxis. Further recommendations as per clinical course of the patient DVT prophylaxis: Subcutaneous heparin GI Prophylaxis: Ppi
[2022-02-17] MEDS: ONDANSETRON 4 MG/2 ML VIAL IVP PRN (05:09)
[2022-02-17] MEDS: PANTOPRAZOLE 40 MG TABLET PO SCH (05:09)
[2022-02-17 05:24] LABS: Glucose,Whole Blood 144 mg/dL (75-99)
[2022-02-17] MEDS: INSULIN ASPART (NovoLOG) 100 UNIT/ML VIAL SQ SCH ×4 (06:27→21:15)
--- NOTE | 2022-02-17 07:08 | XR ---
EXAMINATION TYPE: XR chest 1V DATE OF EXAM: 02/17/2022 CLINICAL HISTORY: Difficulty breathing progress study. TECHNIQUE: Single AP portable upright view of the chest is obtained. COMPARISON: Chest x-ray from 6 days earlier FINDINGS: Underlying scoliosis is redemonstrated. Multilevel spurring in the spine again seen. Degen erative change bilateral shoulders redemonstrated. Mild Cardiomegaly with atherosclerotic thoracic ao rta. Chronic parenchymal changes with increasing right greater than left bilateral lower lung opaciti es. New tiny bilateral pleural effusions suspected including fluid in the right lung fissure. IMPRESSION: New tiny bilateral pleural effusions. New bibasilar opacities could reflect edema and/or developing acute infiltrates. Progress study advised.
--- NOTE | 2022-02-17 07:10 | XR ---
EXAMINATION TYPE: XR KUB portable DATE OF EXAM: 02/17/2022 6:56 AM CLINICAL HISTORY: Colitis. TECHNIQUE: Two portable supine KUB images of the abdomen are obtained. COMPARISON: Abdominal x-ray 6 days ago. FINDINGS: [id number] gas-distended stomach now seen. Persistent gas prominent and distended col on. Some paucity of small bowel gas redemonstrated. Lung bases remain clear. Cholecystectomy clips ar e redemonstrated. Underlying scoliosis again seen. Left-sided vascular calcification and phleboliths redemonstrated. IMPRESSION: Overall nonspecific bowel gas pattern redemonstrated. No significant change from prior.
[2022-02-17] MEDS: IPRATROPIUM-ALBUTEROL 3 ML NEB INHALATION SCH ×4 (08:11→20:26)
[2022-02-17] MEDS: SYMBICORT 160-4.5 MCG INHALER INHALATION SCH ×2 (08:11→20:24)
[2022-02-17 08:29] LABS: Potassium 4.1 mmol/L (3.5-5.1)
[2022-02-17 08:38] LABS: Anisocytosis Slight; Basophils # (A) 0.2 k/uL (0-0.2); Basophils % (A) 1 %; Eosinophils % (A) 0 %; HCT 37.4 % (34.0-46.0); HGB 11.2 gm/dL (11.4-16.0); Hypochromasia Moderate; Lymphocytes # (A) 1.6 k/uL (1.0-4.8); Lymphocytes % (A) 7 %; MCH 28.5 pg (25.0-35.0); MCV 95.1 fL (80.0-100.0); Mean Platelet Volume 7.8; Monocytes # (A) 0.9 k/uL (0-1.0); Monocytes % (A) 4 %; Neutrophils # (A) 20.5 k/uL (1.3-7.7); Neutrophils % (A) 88 %; Platelet Count 429 k/uL (150-450); RBC 3.94 m/uL (3.80-5.40); RDW 16.4 % (11.5-15.5); WBC 23.3 k/uL (3.8-10.6)
[2022-02-17] MEDS: METOPROLOL TARTRATE 25 MG TAB PO SCH ×2 (10:17→21:15)
[2022-02-17] MEDS: methylPREDNISolone SOD SUCCI 40 MG/ML 1 ML VIAL IV SCH ×3 (10:18→23:31)
[2022-02-17] MEDS: metroNIDAZOLE-NS PMX 500 MG in SALINE 1 100ML.BAG IVPB SCH ×2 (10:20→17:56)
[2022-02-17 12:00] LABS: Toxic Granulation Present
[2022-02-17 12:04] LABS: Glucose,Whole Blood 169 mg/dL (75-99)
--- NOTE | 2022-02-17 14:29 | P.GSCN ---
History of Present Illness Consult date: 02/17/22 History of present illness: CHIEF COMPLAINT: Abdominal pain HISTORY OF PRESENT ILLNESS: This is a 76-year-old female who presented to the hospital with dizziness and diarrhea. She does have a past surgical history of bowel resection with colostomy placement and colostomy reversal for diverticulitis. As well as history of cholecystectomy, bladder suspension and hysterectomy. Patient has a known history of chronic diarrhea. She has been having diarrhea for about 2 months. Patient underwent EGD and colonoscopy with Dr. Ojeda on 02/15/2022. Results had shown small hiatal hernia and reflux esophagitis. Colonoscopy revealed severe colitis with multiple ulcerations and cobblestoning of the mucosal involving the rectum in the transverse colon with friable mucosa status post multiple biopsies. The cecum and ascending colon and terminal ileum appeared normal. GI service did start patient on IV steroids. Biopsies were obtained. Surgical service has been consult with due to patient continuing to have pain and diarrhea. She also had been reporting nausea. Patient has been afebrile. She has had mild tachycardia and some episodes of hypotension. Patient seen and examined with Dr. newberry PAST MEDICAL HISTORY: COPD, Deep Vein Thrombosis (DVT), GERD/Reflux, Hypertension, Osteoarthritis , coronary artery disease with cardiac stent, anxiety and depression PAST SURGICAL HISTORY: See list. MEDICATIONS: See list. ALLERGIES: See list. SOCIAL HISTORY: No illicit drug use. REVIEW OF SYSTEMS: CONSTITUTIONAL: Denies fever or chills. HEENT: Denies blurred vision, vision changes, or eye pain. Denies hemoptysis CARDIOVASCULAR: Denies chest pain or pressure. RESPIRATORY: No shortness of breath. GASTROINTESTINAL: See HPI for pertinent findings HEMATOLOGIC: Denies bleeding disorders. GENITOURINARY: Denies any blood in urine or increased urinary frequency. SKIN: Denies pruitis. Denies rash. PHYSICAL EXAM: VITAL SIGNS: Reviewed GENERAL: Well-developed in no acute distress. HEENT: No sclera icterus. Extraocular movements grossly intact. Moist buccal mucosa. Head is atraumatic, normocephalic. No nasal drainage. ABDOMEN: Soft. Nondistended. Diffuse tenderness NEUROLOGIC: Alert and oriented. Cranial nerves II through XII grossly intact. LABORATORY DATA: WBC elevated at 23.3 Hgb 11.2 platelets 429 Sodium 134 potassium 4.1 creatinine 0.91 IMAGING: KUB x-ray nonspecific bowel gas pattern redemonstrated. No significant change from prior. ASSESSMENT: 1. Abdominal pain with diarrhea 2. Severe colitis with recent colonoscopy showing multiple ulcerations and cobblestoning of the mucosal involving the rectum to the transverse colon with friable mucosa PLAN: -Downgrade diet to clear liquids -Continue IV steroids -Continue to monitor -Continue supportive care -Patient seen and examined with Dr. Newberry. Surgeon is aware of colonoscopy findings and patient's symptoms. He is recommending to observe patient and ch brandie a computed tomography scan of abdomen and pelvis with contrast on 02/20/2022. Physician Hub Cutter note has been reviewed by physician. Signing provider agrees with the documented findings, assessment, and plan of care. Past Medical History Past Medical History: COPD, Deep Vein Thrombosis (DVT), GERD/Reflux, Hypertension, Osteoarthritis (OA) Additional Past Medical History / Comment(s): hx- diverticulitis, sciatica left side. History of Any Multi-Drug Resistant Organisms: None Reported Past Surgical History: Bladder Surgery, Bowel Resection, Cardiac Ablation, Stefany cystectomy, Heart Catheterization, Heart Catheterization With Stent, Hysterectomy Additional Past Surgical History / Comment(s): Bladder suspension, lt knee x2 arthroscopic, PAIN CLINIC PROCEDURES, LB CATARACT, one cardiac stent, bowel resection with colostomy/later reversal Past Anesthesia/Blood Transfusion Reactions: Motion Sickness Date of Last Stent Placement:: 2010 Smoking Status: Current every day smoker - Past Family History Sister(s) Family Medical History: Cancer Additional Family Medical History / Comment(s): rectal cancer Medications and Allergies Home Medications Medication Instructions Recorded Confirmed Type Ascorbic Acid [Vitamin C] 1,000 mg PO DAILY@169906/14/18 02/11/22 History Aspirin [Adult Low Dose Aspirin EC] 81 mg PO DAILY@169906/14/18 02/11/22 History DULoxetine HCL [Cymbalta] 30 mg PO DAILY 06/14/18 02/11/22 History Metoprolol Tartrate [Lopressor] 25 mg PO BID 06/14/18 02/11/22 History [place]-3 Fatty Acids [[place]-3] 1,000 mg PO DAILY@169906/14/18 02/11/22 History Potassium Chloride [K-Tab ER] 20 meq PO DAILY@169906/14/18 02/11/22 History Vitamin E (Dl,Tocopheryl Acet) 400 units PO BID 06/14/18 02/11/22 History [Vitamin E (400 Iu = 180 mg)] Naproxen Sodium [Aleve] 440 mg PO Q12H PRN 12/16/18 02/11/22 History Albuterol Sulfate [Albuterol 2 puff INHALATION RT-QID PRN 01/06/22 02/11/22 History Sulfate Hfa] Calcium Carbonate/Vitamin D3 1 tab PO DAILY@1700 01/06/22 02/11/22 History [Calcium 500-Vit D3 5 Mcg (200 Iu)] Cholecalciferol [Vitamin D3 (25 50 mcg PO DAILY@1700 01/06/22 02/11/22 History Mcg = 1000 Iu)] Ipratropium-Albuterol Nebulize 3 ml INHALATION RT-QID 01/06/22 02/11/22 History [Duoneb 0.5 mg-3 mg/3 ml Soln] Budesonide-Formot 160-4.5 Mcg 2 puff INHALATION RT-BID gm 01/13/22 02/11/22 Rx [Symbicort 160-4.5 Mcg Inhaler] Dicyclomine [Bentyl] 10 mg PO QID 30 Days #120 cap 01/13/22 02/11/22 Rx LORazepam [Ativan] 0.5 mg PO Q6H PRN 2 Days #8 tab 01/13/22 02/11/22 Rx Pantoprazole [Protonix] 40 mg PO DAILY 30 Days #30 tab 01/13/22 02/11/22 Rx Furosemide [Lasix] 20 mg PO DAILY 02/11/22 02/11/22 History predniSONE 10 mg PO DAILY #126 tab 02/16/22 Rx Allergies Allergy/AdvReac Type Severity Reaction Status Date / Time ergocalciferol (vitamin D2) Allergy Rash/Hives Verified 02/11/22 15:03 [From Vitamin D2] Surgical - Exam Vital Signs Temp Pulse Resp BP Pulse Ox 97.9 F 118 H 18 87/62 97 02/11/22 10:09 02/11/22 10:09 02/11/22 10:09 02/11/22 10:09 02/11/22 10:09 Results - Labs 02/17/22 07:29 02/17/22 07:29 Abnormal Lab Results - Last 24 Hours (Table) 02/16/22 02/16/22 02/16/22 Range/Units 11:35 14:59 16:26 WBC (3.8-10.6) k/uL Hgb (11.4-16.0) gm/dL MCHC (31.0-37.0) g/dL RDW (11.5-15.5) % Neutrophils # (1.3-7.7) k/uL Sodium (137-145) mmol/L Carbon Dioxide (22-30) mmol/L BUN (7-17) mg/dL Glucose (74-99) mg/dL POC Glucose (mg/dL) 151 H 323 H 267 H (75-99) mg/dL Calcium (8.4-10.2) mg/dL Procalcitonin (0.02-0.09) ng/mL 02/16/22 02/16/22 02/17/22 Range/Units 19:26 20:08 05:23 WBC (3.8-10.6) k/uL Hgb (11.4-16.0) gm/dL MCHC (31.0-37.0) g/dL RDW (11.5-15.5) % Neutrophils # (1.3-7.7) k/uL Sodium (137-145) mmol/L Carbon Dioxide (22-30) mmol/L BUN (7-17) mg/dL Glucose (74-99) mg/dL POC Glucose (mg/dL) 196 H 144 H (75-99) mg/dL Calcium (8.4-10.2) mg/dL Procalcitonin 0.42 H (0.02-0.09) ng/mL 02/17/22 02/17/22 Range/Units 07:29 07:29 WBC 23.3 H (3.8-10.6) k/uL Hgb 11.2 L (11.4-16.0) gm/dL MCHC 30.0 L (31.0-37.0) g/dL RDW 16.4 H (11.5-15.5) % Neutrophils # 20.5 H (1.3-7.7) k/uL Sodium 134 L (137-145) mmol/L Carbon Dioxide 21 L (22-30) mmol/L BUN 29 H (7-17) mg/dL Glucose 117 H (74-99) mg/dL POC Glucose (mg/dL) (75-99) mg/dL Calcium 7.0 L (8.4-10.2) mg/dL Procalcitonin (0.02-0.09) ng/mL Diabetes panel 02/17/22 Range/Units 07:29 Sodium 134 L (137-145) mmol/L Potassium 4.1 (3.5-5.1) mmol/L Chloride 107 (98-107) mmol/L Carbon Dioxide 21 L (22-30) mmol/L BUN 29 H (7-17) mg/dL Creatinine 0.91 (0.52-1.04) mg/dL Glucose 117 H (74-99) mg/dL Calcium 7.0 L (8.4-10.2) mg/dL Calcium panel 02/17/22 Range/Units 07:29 Calcium 7.0 L (8.4-10.2) mg/dL Pituitary panel 02/17/22 Range/Units 07:29 Sodium 134 L (137-145) mmol/L Potassium 4.1 (3.5-5.1) mmol/L Chloride 107 (98-107) mmol/L Carbon Dioxide 21 L (22-30) mmol/L BUN 29 H (7-17) mg/dL Creatinine 0.91 (0.52-1.04) mg/dL Glucose 117 H (74-99) mg/dL Calcium 7.0 L (8.4-10.2) mg/dL Adrenal panel 02/17/22 Range/Units 07:29 Sodium 134 L (137-145) mmol/L Potassium 4.1 (3.5-5.1) mmol/L Chloride 107 (98-107) mmol/L Carbon Dioxide 21 L (22-30) mmol/L BUN 29 H (7-17) mg/dL Creatinine 0.91 (0.52-1.04) mg/dL Glucose 117 H (74-99) mg/dL Calcium 7.0 L (8.4-10.2) mg/dL
[2022-02-17] MEDS: CALCIUM CARB-VIT D 500 MG-5 MCG TAB PO SCH (17:03)
[2022-02-17] MEDS: POTASSIUM CHLORIDE ER 20 MEQ TAB.ER PO SCH (17:03)
[2022-02-17] MEDS: ASCORBIC ACID 500 MG TAB PO SCH (17:03)
[2022-02-17] MEDS: VITAMIN E (DL,TOCOPHERYL ACET) 400 UNIT (180 MG) CAP PO SCH ×2 (17:03→21:15)
[2022-02-17] MEDS: CHOLECALCIFEROL 25 MCG (1000 IU) TABLET PO SCH (17:03)
[2022-02-17] MEDS: HEPARIN SODIUM,PORCINE/PF 5,000 UNIT/0.5 ML SYRINGE SQ SCH ×3 (17:04→23:31)
[2022-02-17] MEDS: SODIUM CHLORIDE 0.9% 1,000 ML IV SCH (17:05)
[2022-02-17 17:08] LABS: Glucose,Whole Blood 113 mg/dL (75-99)
[2022-02-17] MEDS: PIPERACILLIN-TAZOBACTAM 3.375 GM in SODIUM CHLORIDE 0.9% 100 ML IVPB SCH ×2 (17:47→21:11)
[2022-02-17] MEDS: FUROSEMIDE 20 MG TAB PO SCH (17:55)
[2022-02-17] MEDS: DULoxetine HCL 30 MG CAPSULE.DR PO SCH (17:55)
[2022-02-17] MEDS: ASPIRIN 81 MG PO SCH (17:55)
[2022-02-17 21:08] LABS: Glucose,Whole Blood 147 mg/dL (75-99)
[2022-02-17] MEDS ORDERED: SODIUM CHLORIDE 0.9% 500 ML 500 ML IV PRN (22:11)
[2022-02-17] MEDS ORDERED: DILTIAZEM 125 MG in SODIUM CHLORIDE 0.9% 100 ML IV SCH (22:30)
[2022-02-18] MEDS: metroNIDAZOLE-NS PMX 500 MG in SALINE 1 100ML.BAG IVPB SCH ×3 (03:12→16:49)
[2022-02-18] MEDS: PIPERACILLIN-TAZOBACTAM 3.375 GM in SODIUM CHLORIDE 0.9% 100 ML IVPB SCH ×3 (05:23→16:50)
[2022-02-18 06:05] LABS: Glucose,Whole Blood 98 mg/dL (75-99)
[2022-02-18] MEDS: INSULIN ASPART (NovoLOG) 100 UNIT/ML VIAL SQ SCH ×4 (06:35→21:28)
[2022-02-18] MEDS: PANTOPRAZOLE 40 MG TABLET PO SCH (06:36)
[2022-02-18] MEDS: SODIUM CHLORIDE 0.9% 1,000 ML IV SCH ×2 (06:43→13:34)
[2022-02-18] MEDS: SYMBICORT 160-4.5 MCG INHALER INHALATION SCH ×2 (07:24→20:28)
[2022-02-18] MEDS: IPRATROPIUM-ALBUTEROL 3 ML NEB INHALATION SCH ×4 (07:24→20:36)
[2022-02-18] MEDS: methylPREDNISolone SOD SUCCI 40 MG/ML 1 ML VIAL IV SCH ×2 (09:02→16:48)
[2022-02-18] MEDS: DULoxetine HCL 30 MG CAPSULE.DR PO SCH (09:03)
[2022-02-18] MEDS: HEPARIN SODIUM,PORCINE/PF 5,000 UNIT/0.5 ML SYRINGE SQ SCH ×2 (09:03→16:49)
[2022-02-18] MEDS: METOPROLOL TARTRATE 25 MG TAB PO SCH ×2 (09:04→22:00)
[2022-02-18 12:11] LABS: Glucose,Whole Blood 80 mg/dL (75-99)
[2022-02-18] MEDS: FUROSEMIDE 20 MG TAB PO SCH (13:10)
[2022-02-18] MEDS: MIDODRINE 5 MG TAB PO SCH ×2 (13:22→16:49)
[2022-02-18] MEDS: VITAMIN E (DL,TOCOPHERYL ACET) 400 UNIT (180 MG) CAP PO SCH ×2 (13:22→22:00)
[2022-02-18] MEDS: ASCORBIC ACID 500 MG TAB PO SCH (13:22)
--- NOTE | 2022-02-18 13:36 | P.CRDCN ---
History of Present Illness History of present illness: HISTORY OF PRESENTING ILLNESS Patient is a pleasant 76-year-old female with history of CAD with prior stenting of the RCA in 2010, hypertension, hyperlipidemia, diarrhea who follows in the [facility] with Dr. Cook. She has a history of prior heart catheterization from August 2018 which showed patent stent and no significant disease on the left. She states she has been doing fairly well cardiac-torres however is unsure why she came in a week ago however appears she was having diarrhea. She is noted to have high white blood cell count 16.9, acute kidney injury with creatinine up to 1.6, hyponatremia sodium down to 1:30, albumin 2.4, CRP 16. She eventually underwent endoscopy showing concern of ulcerative colitis. She was placed on steroids which she is tolerating. She was briefly on clear liquid diets and has been advancing. She admits she does not have much of an appetite and has not been eating and drinking much. Cardiology was consult is secondary to tachycardia. On review of telemetry heart rates were in the low 100s and up to the 150s yesterday with borderline blood pressures. She does have some lower extremity edema which she states is new. Suspect related to third spacing from protein calorie malnutrition. She has been on the Lasix 20 mg daily. She has been receiving Midrin with blood pressures in the 90s systolic. She was temporarily placed on Cardizem drip however this has been discontinued. EKG does show sinus tachycardia however additional prolonged QTC deep T-wave inversions V3 through V6 possibly concerning for ischemia, possible Takotsubo's cardiomyopathy. Denies any chest pain or pressure. Her heart rates have improved into the 80s and all appears sinus. REVIEW OF SYSTEMS At the time of my exam: CONSTITUTIONAL: Denies fever or chills. CARDIOVASCULAR: Denies chest pain, shortness of breath, orthopnea, PND or palpitations. RESPIRATORY: Denies cough. GASTROINTESTINAL: Denies abdominal pain, diarrhea, constipation, nausea or vomiting. MUSCULOSKELETAL: Denies myalgias. NEUROLOGIC: Denies numbness, tingling or weakness. ENDOCRINE: Denies fatigue, weight change, polydipsia or polyurina. GENITOURINARY: Denies burning, hematuria or urgency with micturation. HEMATOLOGIC: Denies history of anemia or bleeding. PHYSICAL EXAMINATION Vital signs reviewed. CONSTITUTIONAL: No apparent distress, chronically ill appearing HEENT: Head is normocephalic. Pupils are equal, round. Sclerae anicteric. Mucous membranes of the mouth are moist. No JVD. No carotid bruit. CHEST EXAMINATION: Lungs are clear to auscultation. No chest wall tenderness is noted on palpation or with deep breathing. HEART EXAMINATION: Regular rate and rhythm. S1, S2 heard. No murmurs, gallops or rub. ABDOMEN: Soft, nontender. Positive bowel sounds. EXTREMITIES: 2+ peripheral pulses, 1+ lower extremity edema and no calf tenderness. NEUROLOGIC EXAMINATION: Patient is awake, alert and oriented x3. ASSESSMENT 1. Sinus tachycardia appears reactive secondary to dehydration, ulcerative colitis flare 2. Hypotension suspect related to dehydration 3. Abnormal EKG with T-wave inversions as well as QT prolongation. No obvious angina-type symptoms 4. History of coronary artery disease 5. Diarrhea with findings concerning for ulcerative colitis 6. Hypertension, currently borderline hypotensive 7. Lower extremity edema, suspect related to third spacing from protein calorie malnutrition 8. Severe protein calorie malnutrition PLAN EKG reviewed with new T-wave inversions. She is not having any significant angina-type symptoms however with her history of CAD we will check troponin for completeness sake. This may represent Takotsubo's cardiomyopathy versus other. Prolonged QT and avoid QT prolonging medications. Repeat EKG. Check 2-D echo. Stop Lasix given lower extremity edema appears related to third spacing and appears dehydrated. Monitor response of IV fluids at 100 mL per hour. Further recommendations to follow. Past Medical History Past Medical History: COPD, Deep Vein Thrombosis (DVT), GERD/Reflux, Hypertension, Osteoarthritis (OA) Additional Past Medical History / Comment(s): hx- diverticulitis, sciatica left side. History of Any Multi-Drug Resistant Organisms: None Reported Past Surgical History: Bladder Surgery, Bowel Resection, Cardiac Ablation, Cholecystectomy, Heart Catheterization, Heart Catheterization With Stent, Hysterectomy Additional Past Surgical History / Comment(s): Bladder suspension, lt knee x2 arthroscopic, PAIN CLINIC PROCEDURES, LB CATARACT, one cardiac stent, bowel resection with colostomy/later reversal Past Anesthesia/Blood Transfusion Reactions: Motion Sickness Date of Last Stent Placement:: 2010 Smoking Status: Current every day smoker - Past Family History Sister(s) Family Medical History: Cancer Additional Family Medical History / Comment(s): rectal cancer Medications and Allergies Home Medications Medication Instructions Recorded Confirmed Type Ascorbic Acid [Vitamin C] 1,000 mg PO DAILY@169906/14/18 02/11/22 History Aspirin [Adult Low Dose Aspirin EC] 81 mg PO DAILY@169906/14/18 02/11/22 History DULoxetine HCL [Cymbalta] 30 mg PO DAILY 06/14/18 02/11/22 History Metoprolol Tartrate [Lopressor] 25 mg PO BID 06/14/18 02/11/22 History [place]-3 Fatty Acids [[place]-3] 1,000 mg PO DAILY@169906/14/18 02/11/22 History Potassium Chloride [K-Tab ER] 20 meq PO DAILY@169906/14/18 02/11/22 History Vitamin E (Dl,Tocopheryl Acet) 400 units PO BID 06/14/18 02/11/22 History [Vitamin E (400 Iu = 180 mg)] Naproxen Sodium [Aleve] 440 mg PO Q12H PRN 12/16/18 02/11/22 History Albuterol Sulfate [Albuterol 2 puff INHALATION RT-QID PRN 01/06/22 02/11/22 History Sulfate Hfa] Calcium Carbonate/Vitamin D3 1 tab PO DAILY@169901/06/22 02/11/22 History [Calcium 500-Vit D3 5 Mcg (200 Iu)] Cholecalciferol [Vitamin D3 (25 50 mcg PO DAILY@169901/06/22 02/11/22 History Mcg = 1000 Iu)] Ipratropium-Albuterol Nebulize 3 ml INHALATION RT-QID 01/06/22 02/11/22 History [Duoneb 0.5 mg-3 mg/3 ml Soln] Budesonide-Formot 160-4.5 Mcg 2 puff INHALATION RT-BID gm 01/13/22 02/11/22 Rx [Symbicort 160-4.5 Mcg Inhaler] Dicyclomine [Bentyl] 10 mg PO QID 30 Days #120 cap 01/13/22 02/11/22 Rx LORazepam [Ativan] 0.5 mg PO Q6H PRN 2 Days #8 tab 01/13/22 02/11/22 Rx Pantoprazole [Protonix] 40 mg PO DAILY 30 Days #30 tab 01/13/22 02/11/22 Rx Furosemide [Lasix] 20 mg PO DAILY 02/11/22 02/11/22 History predniSONE 10 mg PO DAILY #126 tab 02/16/22 Rx Allergies Allergy/AdvReac Type Severity Reaction Status Date / Time ergocalciferol (vitamin D2) Allergy Rash/Hives Verified 02/11/22 15:03 [From Vitamin D2] Physical Exam Vitals: Vital Signs Temp Pulse Pulse Resp BP Pulse Ox 02/18/22 08:00 90 16 87/58 96 02/18/22 07:40 96 02/18/22 07:27 94 97 02/18/22 04:00 97.7 F 106 H 12 90/61 94 L 02/17/22 23:29 97.5 F L 111 H 12 79/58 95 02/17/22 21:40 150 H 12 84/62 93 L 02/17/22 20:00 97.7 F 106 H 14 105/72 96 02/17/22 16:00 98.4 F 114 H 19 105/72 96 02/17/22 14:00 103 H 20 Intake and Output 02/17/22 02/18/22 02/18/22 22:59 06:59 14:59 Output Total 0 600 Balance 0 -600 Output: Urine 600 Post Void Residual 0 Other: Voiding Method Bedside Commode Diaper Diaper Diaper # Voids 2 # Bowel Movements 1 1 Results 02/17/22 07:29 02/17/22 07:29 Current Medications Generic Name Dose Route Start Last Admin Trade Name Freq PRN Reason Stop Dose Admin Albuterol/Ipratropium 3 ml 02/11/22 16:00 02/18/22 11:01 Ipratropium-Albuterol 3 Ml Neb INHALATION Not Given RT-QID [facility] Ascorbic Acid 1,000 mg 02/11/22 17:00 02/18/22 13:22 Ascorbic Acid 500 Mg Tab PO 1,000 mg DAILY@1700 SAVITA Administration Aspirin 81 mg 02/11/22 17:00 02/17/22 17:55 Aspirin 81 Mg PO 81 mg DAILY@1700 SAVITA Administration Budesonide/Formoterol Fumarate 2 puff 02/11/22 20:00 02/18/22 07:24 Symbicort 160-4.5 Mcg Inhaler INHALATION 2 puff RT-BID SAVITA Administration Calcium Carbonate 1 each 02/11/22 17:00 05/27/22 17:03 Calcium Carb-Vit D 500 Mg-5 Mcg Tab PO Not Given DAILY@1700 [facility] Cholecalciferol 50 mcg 02/11/22 17:00 02/17/22 17:03 Cholecalciferol 25 Mcg (1000 Iu) Tablet PO Not Given DAILY@1700 [facility] Duloxetine HCl 30 mg 02/12/22 09:00 02/18/22 09:03 Duloxetine Hcl 30 Mg Capsule.Dr PO 30 mg DAILY SAVITA Administration Furosemide 20 mg 02/12/22 09:00 02/18/22 13:10 Furosemide 20 Mg Tab PO Not Given DAILY [facility] Heparin Sodium (Porcine) 5,000 unit 02/13/22 00:00 02/18/22 09:03 Heparin Sodium,Porcine/Pf 5,000 Unit/0.5 Ml Syringe SQ 5,000 unit Q8HR SAVITA Administration Sodium Chloride 1,000 mls @ 75 mls/hr 02/11/22 22:45 02/18/22 06:43 Saline 0.9% IV Not Given .[id number] [facility] Metronidazole 500 mg/ IV 100 mls @ 100 mls/hr 02/17/22 08:15 02/18/22 09:06 Solution IVPB 100 mls/hr Q8HR [facility] Administration Protocol Piperacillin Sod/Tazobactam 100 mls @ 25 mls/hr 02/17/22 10:00 02/18/22 13:22 Sod 3.375 gm/ Sodium Chloride IVPB 25 mls/hr Q8H [facility] Administration Protocol Diltiazem HCl 125 mg/ Sodium 125 mls @ 5 mls/hr 02/17/22 22:30 02/17/22 22:31 Chloride IV 5 mg/hr .Q24H SAVITA 5 mls/hr Administration Protocol 5 MG/HR Sodium Chloride 500 mls @ 999 mls/hr 02/17/22 22:11 Saline 0.9% IV .Q31M PRN decreased BP Insulin Aspart 0 unit 02/16/22 17:30 02/18/22 13:11 Insulin Aspart (Novolog) 100 Unit/Ml Vial SQ Not Given ACHS [facility] Protocol Iopamidol 30 ml 02/20/22 09:00 Iopamidol Contrast (Oral Use) Vial PO 02/20/22 23:[address] Scan Lorazepam 0.5 mg 02/11/22 15:17 02/12/22 20:52 Lorazepam 0.5 Mg Tab PO 0.5 mg Q6H PRN Administration Anxiety Methylprednisolone Sodium Succinate 20 mg 02/15/22 16:00 02/18/22 09:02 Methylprednisolone Sod Succi 40 Mg/Ml 1 Ml Vial IV 20 mg Q8HR SAVITA Administration Metoprolol Tartrate 25 mg 02/11/22 21:00 02/18/22 09:04 Metoprolol Tartrate 25 Mg Tab PO 25 mg BID SAVITA Administration Midodrine 10 mg 02/18/22 12:30 02/18/22 13:22 Midodrine 5 Mg Tab PO 10 mg AC-TID SAVITA Administration Naloxone HCl 0.2 mg 02/11/22 15:15 Naloxone 0.4 Mg/Ml 1 Ml Vial IV Q2M PRN Opioid Reversal Ondansetron HCl 4 mg 02/17/22 04:53 02/17/22 05:09 Ondansetron 4 Mg/2 Ml Vial IVP 4 mg Q6HR PRN Administration Nausea And Vomiting Pantoprazole Sodium 40 mg 02/12/22 07:30 02/18/22 06:36 Pantoprazole 40 Mg Tablet PO 40 mg [id number] [facility] Administration Potassium Chloride 20 meq 02/11/22 17:00 02/17/22 17:03 Potassium Chloride Er 20 Meq Tab.Er PO Not Given DAILY@1700 [facility] Simethicone 80 mg 02/16/22 15:52 02/17/22 05:09 Simethicone 80 Mg Chewable PO 80 mg QID PRN Administration INDEGESTION Vitamin E 400 unit 02/11/22 21:00 02/18/22 13:22 Vitamin E (Dl,Tocopheryl Acet) 400 Unit (180 Mg) Cap PO 400 unit BID SAVITA Administration Intake and Output 02/17/22 02/18/22 02/18/22 22:59 06:59 14:59 Output Total 0 600 Balance 0 -600 Output: Urine 600 Post Void Residual 0 Other: Voiding Method Bedside Commode Diaper Diaper Diaper # Voids 2 # Bowel Movements 1 1 02/17/22 07:29 02/17/22 07:29
[2022-02-18 16:48] LABS: Glucose,Whole Blood 166 mg/dL (75-99)
[2022-02-18] MEDS: CALCIUM CARB-VIT D 500 MG-5 MCG TAB PO SCH (16:49)
[2022-02-18] MEDS: CHOLECALCIFEROL 25 MCG (1000 IU) TABLET PO SCH (16:49)
[2022-02-18] MEDS: ASPIRIN 81 MG PO SCH (16:49)
[2022-02-18] MEDS: POTASSIUM CHLORIDE ER 20 MEQ TAB.ER PO SCH (16:49)
--- NOTE | 2022-02-18 18:46 | P.PN ---
Subjective Progress Note Date: 02/18/22 CHIEF COMPLAINT: Ulcerative colitis HISTORY OF PRESENT ILLNESS: The patient is a 76-year-old female status post colonoscopy features of ulcerative colitis. She is on steroids. She reports her abdominal pain is stable. Her pain is not worse. Incidentally, patient's elevated troponins. Cardiology following. She is tolerating clear liquid diet. ROS: No reports of nausea and vomiting. No fevers or chills. No productive sputum PHYSICAL EXAM: VITAL SIGNS: Reviewed CONSTITUTIONAL: Well developed and in no acute distress. Nontoxic in appearance. EYES: Conjuctivae without sclera icterus. Extraocular movements grossly intact. HEAD, EARS, NOSE, THROAT: Moist buccal mucosa. Head is atraumatic, normocephalic. Hears conversational speech. No nasal drainage. RESPIRATORY: Non-labored respirations and equal bilateral excursions. CARDIOVASCULAR: Palpable 2+ radial pulses. ABDOMEN: No peritonitis. MUSCULOSKELETAL: No gross deformity of the lower extremities noted. No clubbing. No cyanosis. SKIN: Good skin turgor. Well perfused. NEUROLOGIC: Cranial nerves II through XII grossly intact. No focal or lateralizing signs. PSYCH: Appropriate affect. Alert and oriented to person, place and time. CLINICAL LABS: Reviewed. Troponin is elevated 0.168. Creatinine normal 0.9. ASSESSMENT: 1. Ulcerative colitis PLAN: 1. Continue steroids with expectation of overlap and leukocytosis due to steroid exposure. 2. Continue clear liquid diet. Objective - Vital Signs Vital signs: Vital Signs Temp 97.7 F 02/18/22 04:00 Pulse 96 02/18/22 16:00 Resp 16 02/18/22 16:00 BP 97/64 02/18/22 16:00 Pulse Ox 96 02/18/22 16:00 FiO2 Intake & Output 02/17/22 02/18/22 02/18/22 18:59 06:59 18:59 Intake Total 160 Output Total 300 600 600 Balance -300 -600 -440 Intake: Oral 160 Output: Urine 600 600 Uretheral (Santos) 600 Post Void Residual 0 Stool 300 Other: Voiding Method Bedside Commode Diaper Diaper Diaper # Voids 2 # Bowel Movements 2 1 1 - Labs CBC & Chem 7: 02/17/22 07:29 02/17/22 07:29 Labs: Abnormal Lab Results - Last 24 Hours (Table) 02/17/22 02/18/22 02/18/22 Range/Units 20:57 14:16 16:47 POC Glucose (mg/dL) 147 H 166 H (75-99) mg/dL Troponin I 0.163 H* (0.000-0.034) ng/mL
--- NOTE | 2022-02-18 18:57 | P.PN ---
Subjective Progress Note Date: 02/17/22 76-year-old female with a known history of COPD, hypertension, GERD, history of DVT, coronary artery disease history of stent placement, anxiety/depression and previous history of smoking and daily alcohol use presents to ER with complaints of dizziness. Patient has been having diarrhea for the past couple of months and was in the hospital previously patient was sent to Rehab and was recently discharged home. Patient still has been having loose stool. However denies any complaints of abdominal pain. No chest pain or shortness of breath. No nausea or vomiting. On admission patient was found to be hypotensive with blood pressure 87/62 pulse is 118 respiration 18 and pulse ox 97% on room air Chest x-ray showed chronic changes without acute pulmonary process. KUB x-ray showed overall nonspecific but favored nonobstructive bowel gas pattern. Moderate to severe proximal chronic fecal stasis is felt present currently. EKG showed sinus tachycardia Laboratory showed WBC 16.9 hemoglobin 12.2 and platelets 545 Sodium 130 potassium 4.9 chloride 96 BUN 31 and creatinine 1.63 and lipase 20 albumin 2.4 Urinalysis is negative for infection. Objective - Vital Signs Vital signs: Vital Signs Temp 97.6 F 02/17/22 03:55 Pulse 103 H 02/17/22 03:55 Resp 20 02/17/22 03:55 BP 105/74 02/17/22 03:55 Pulse Ox 97 02/17/22 03:55 FiO2 Intake & Output 02/16/22 02/17/22 02/17/22 18:59 06:59 18:59 Intake Total 420 Output Total 300 Balance 120 Weight 67.8 kg Intake: Oral 420 Output: Stool 300 Other: Voiding Method Bedside Commode Bedside Commode Diaper Diaper # Voids 1 # Bowel Movements 2 2 - Exam GENERAL: The patient is alert and oriented x3, not in any acute distress. Well developed, well nourished. HEENT: Pupils are round and equally reacting to light. EOMI. No scleral icterus. No conjunctival pallor. Normocephalic, atraumatic. No pharyngeal erythema. No thyromegaly. CARDIOVASCULAR: S1 and S2 present. No murmurs, rubs, or gallops. PULMONARY: Chest is clear to auscultation, no wheezing or crackles. -ABDOMEN: Soft, periumbilical tenderness, no rebound tenderness or guarding, nondistended, normoactive bowel sounds. No palpable organomegaly. MUSCULOSKELETAL: No joint swelling or deformity. EXTREMITIES: No cyanosis, clubbing, or pedal edema. NEUROLOGICAL: Gross neurological examination did not reveal any focal deficits. SKIN: No rashes. no petechiae. - Labs CBC & Chem 7: 02/17/22 07:29 02/17/22 07:29 Labs: Abnormal Lab Results - Last 24 Hours (Table) 02/16/22 02/16/22 02/16/22 Range/Units 11:35 14:59 16:26 WBC (3.8-10.6) k/uL Hgb (11.4-16.0) gm/dL MCHC (31.0-37.0) g/dL RDW (11.5-15.5) % Neutrophils # (1.3-7.7) k/uL Sodium (137-145) mmol/L Carbon Dioxide (22-30) mmol/L BUN (7-17) mg/dL Glucose (74-99) mg/dL POC Glucose (mg/dL) 151 H 323 H 267 H (75-99) mg/dL Calcium (8.4-10.2) mg/dL Procalcitonin (0.02-0.09) ng/mL 02/16/22 02/16/22 02/17/22 Range/Units 19:26 20:08 05:23 WBC (3.8-10.6) k/uL Hgb (11.4-16.0) gm/dL MCHC (31.0-37.0) g/dL RDW (11.5-15.5) % Neutrophils # (1.3-7.7) k/uL Sodium (137-145) mmol/L Carbon Dioxide (22-30) mmol/L BUN (7-17) mg/dL Glucose (74-99) mg/dL POC Glucose (mg/dL) 196 H 144 H (75-99) mg/dL Calcium (8.4-10.2) mg/dL Procalcitonin 0.42 H (0.02-0.09) ng/mL 02/17/22 02/17/22 02/17/22 Range/Units 07:29 07:29 12:02 WBC 23.3 H (3.8-10.6) k/uL Hgb 11.2 L (11.4-16.0) gm/dL MCHC 30.0 L (31.0-37.0) g/dL RDW 16.4 H (11.5-15.5) % Neutrophils # 20.5 H (1.3-7.7) k/uL Sodium 134 L (137-145) mmol/L Carbon Dioxide 21 L (22-30) mmol/L BUN 29 H (7-17) mg/dL Glucose 117 H (74-99) mg/dL POC Glucose (mg/dL) 169 H (75-99) mg/dL Calcium 7.0 L (8.4-10.2) mg/dL Procalcitonin (0.02-0.09) ng/mL Assessment and Plan Assessment: Diarrhea secondary with severe colitis and multiple ulceration on cobblestone appearance of the rectum and up to transverse(On colonoscopy), inflammatory bowel disease is suspected versus other Dehydration and hypovolemia, resolving Generalized weakness Acute kidney injury likely prerenal. Resolved Hypovolemic hyponatremia. Improved Leukocytosis likely reactive. Back to normal Coronary disease history of stent placement COPD not in exacerbation Hypertension Osteoarthritis GERD Anxiety/depression Please history of smoking Plan: This is a pleasant 76 years old female who presents with diarrhea and hyperten gilda Continue with normal saline Continue with IV Solu-Medrol Give normal saline bolus Follow-up stool studies Checked procalcitonin GI service team following the patient, however they signed off for now, not available in this facility for the rest of the week and weekend Pulmonary team on the case. We will check abdominal x-ray tomorrow and ask for surgical team evaluation. Labs and medication were reviewed.. Continue same treatment. Continue with symptomatic treatment. Resume home medication. Monitor lytes and vitals. DVT and GI prophylaxis. Further recommendations as per clinical course of the patient DVT prophylaxis: Subcutaneous heparin
--- NOTE | 2022-02-18 19:06 | P.PN ---
Subjective Progress Note Date: 02/18/22 Principal diagnosis: Diarrhea secondary with severe colitis Dehydration and hypovolemia Acute kidney injury likely prerenal 76-year-old female with a known history of COPD, hypertension, GERD, history of DVT, coronary artery disease history of stent placement, anxiety/depression and previous history of smoking and daily alcohol use presents to ER with complaints of dizziness. Patient has been having diarrhea for the past couple of months and was in the hospital previously patient was sent to Rehab and was recently discharged home. Patient still has been having loose stool. However denies any complaints of abdominal pain. No chest pain or shor tness of breath. No nausea or vomiting. On admission patient was found to be hypotensive with blood pressure 87/62 pulse is 118 respiration 18 and pulse ox 97% on room air Chest x-ray showed chronic changes without acute pulmonary process. KUB x-ray showed overall nonspecific but favored nonobstructive bowel gas pattern. Moderate to severe proximal chronic fecal stasis is felt present currently. EKG showed sinus tachycardia Laboratory showed WBC 16.9 hemoglobin 12.2 and platelets 545 Sodium 130 potassium 4.9 chloride 96 BUN 31 and creatinine 1.63 and lipase 20 albumin 2.4 Urinalysis is negative for infection. 02/18/2022 Patient is seen and evaluated in the room at bedside; No reports of nausea and vomiting. No fevers or chills. No productive sputum Cardiology consulted for tachycardia; patient had episodes of hypotension with a heart rate escalating to 150s; patient has been placed on Midrin 10 mg by mouth 3 times a day; sinus tachycardia likely related to dehydration; EKG reveals T- wave inversion; patient does not have any complaint of chest pain; This may represent Takotsubo's cardiomyopathy versus other. Prolonged QT and avoid QT prolonging medications. Repeat EKG. Check 2-D echo. Stop Lasix given lower extremity edema appears related to third spacing and appears dehydrated. Monitor response of IV fluids at 100 mL per hour. Further recommendations to follow. Patient remains on IV steroids for acute flare of ulcerative colitis; patient is status post colonoscopy revealing features of ulcerative colitis --WBC remained elevated likely related to steroid therapy Surgery on board and recommending to continue with clear liquid diet Objective - Vital Signs Vital signs: Vital Signs Temp 97.7 F 02/18/22 04:00 Pulse 90 02/18/22 08:00 Resp 16 02/18/22 08:00 BP 87/58 02/18/22 08:00 Pulse Ox 96 02/18/22 08:00 FiO2 Intake & Output 02/17/22 02/18/22 02/18/22 18:59 06:59 18:59 Output Total 300 600 Balance -300 -600 Output: Urine 600 Post Void Residual 0 Stool 300 Other: Voiding Method Bedside Commode Diaper Diaper Diaper # Voids 2 # Bowel Movements 2 1 - Exam GENERAL: The patient is alert and oriented x3, not in any acute distress. Well developed, well nourished. HEENT: Pupils are round and equally reacting to light. EOMI. No scleral icterus. No conjunctival pallor. Normocephalic, atraumatic. No pharyngeal erythema. No thyromegaly. CARDIOVASCULAR: S1 and S2 present. No murmurs, rubs, or gallops. PULMONARY: Chest is clear to auscultation, no wheezing or crackles. -ABDOMEN: Soft, periumbilical tenderness, no rebound tenderness or guarding, nondistended, normoactive bowel sounds. No palpable organomegaly. MUSCULOSKELETAL: No joint swelling or deformity. EXTREMITIES: No cyanosis, clubbing, or pedal edema. NEUROLOGICAL: Gross neurological examination did not reveal any focal deficits. SKIN: No rashes. no petechiae. - Labs CBC & Chem 7: 02/17/22 07:29 02/17/22 07:29 Labs: Abnormal Lab Results - Last 24 Hours (Table) 02/17/22 02/17/22 Range/Units 17:06 20:57 POC Glucose (mg/dL) 113 H 147 H (75-99) mg/dL Assessment and Plan Assessment: Diarrhea secondary with severe colitis and multiple ulceration on cobblestone appearance of the rectum and up to transverse(On colonoscopy), inflammatory bow el disease is suspected versus other Dehydration and hypovolemia, resolving Generalized weakness Acute kidney injury likely prerenal. Resolved Hypovolemic hyponatremia. Improved Leukocytosis likely reactive. Back to normal Coronary disease history of stent placement COPD not in exacerbation Hypertension Osteoarthritis GERD Anxiety/depression Please history of smoking Plan: This is a pleasant 76 years old female who presents with diarrhea and hypertension Continue with normal saline Continue with IV Solu-Medrol Give normal saline bolus Follow-up stool studies Checked procalcitonin GI service team following the patient, however they signed off for now, not available in this facility for the rest of the week and weekend Pulmonary team on the case. We will check abdominal x-ray tomorrow and ask for surgical team evaluation. Labs and medication were reviewed.. Continue same treatment. Continue with symptomatic treatment. Resume home medication. Monitor lytes and vitals. DVT and GI prophylaxis. Further recommendations as per clinical course of the patie nt DVT prophylaxis: Subcutaneous heparin
[2022-02-18 21:07] LABS: Glucose,Whole Blood 109 mg/dL (75-99)
[2022-02-19] MEDS: HEPARIN SODIUM,PORCINE/PF 5,000 UNIT/0.5 ML SYRINGE SQ SCH ×3 (00:24→17:00)
[2022-02-19] MEDS: methylPREDNISolone SOD SUCCI 40 MG/ML 1 ML VIAL IV SCH ×3 (00:24→17:03)
[2022-02-19] MEDS: metroNIDAZOLE-NS PMX 500 MG in SALINE 1 100ML.BAG IVPB SCH ×3 (00:24→17:04)
[2022-02-19] MEDS: PIPERACILLIN-TAZOBACTAM 3.375 GM in SODIUM CHLORIDE 0.9% 100 ML IVPB SCH ×3 (02:07→17:04)
[2022-02-19 06:06] LABS: Glucose,Whole Blood 88 mg/dL (75-99)
[2022-02-19] MEDS: SODIUM CHLORIDE 0.9% 1,000 ML IV SCH (06:07)
[2022-02-19] MEDS: INSULIN ASPART (NovoLOG) 100 UNIT/ML VIAL SQ SCH ×3 (06:08→16:59)
[2022-02-19] MEDS: MIDODRINE 5 MG TAB PO SCH ×3 (06:48→17:00)
[2022-02-19] MEDS: PANTOPRAZOLE 40 MG TABLET PO SCH (06:49)
[2022-02-19] MEDS: IPRATROPIUM-ALBUTEROL 3 ML NEB INHALATION SCH ×4 (08:29→19:58)
[2022-02-19] MEDS: SYMBICORT 160-4.5 MCG INHALER INHALATION SCH ×2 (08:29→19:58)
[2022-02-19 09:25] LABS: Calcium 7.3 mg/dL (8.4-10.2); Potassium 4.3 mmol/L (3.5-5.1)
[2022-02-19] MEDS: VITAMIN E (DL,TOCOPHERYL ACET) 400 UNIT (180 MG) CAP PO SCH ×2 (09:43→20:10)
[2022-02-19] MEDS: ASCORBIC ACID 500 MG TAB PO SCH (09:43)
[2022-02-19] MEDS: METOPROLOL TARTRATE 25 MG TAB PO SCH ×2 (09:43→20:09)
[2022-02-19] MEDS: CALCIUM CARB-VIT D 500 MG-5 MCG TAB PO SCH (09:43)
[2022-02-19] MEDS: LORazepam 0.5 MG TAB PO PRN ×2 (09:44→21:11)
[2022-02-19] MEDS: DULoxetine HCL 30 MG CAPSULE.DR PO SCH (09:44)
[2022-02-19] MEDS: POTASSIUM CHLORIDE ER 20 MEQ TAB.ER PO SCH (09:44)
[2022-02-19] MEDS: ASPIRIN 81 MG PO SCH (09:44)
[2022-02-19] MEDS: CHOLECALCIFEROL 25 MCG (1000 IU) TABLET PO SCH (09:44)
[2022-02-19 09:48] LABS: Anisocytosis Slight; Basophils % (A) 0 %; Eosinophils % (A) 0 %; HCT 32.7 % (34.0-46.0); HGB 10.3 gm/dL (11.4-16.0); Hypochromasia Slight; Lymphocytes # (A) 1.2 k/uL (1.0-4.8); Lymphocytes % (A) 7 %; MCH 29.5 pg (25.0-35.0); MCHC 31.4 g/dL (31.0-37.0); MCV 93.7 fL (80.0-100.0); Mean Platelet Volume 8.5; Monocytes # (A) 0.6 k/uL (0-1.0); Monocytes % (A) 4 %; Neutrophils # (A) 15.4 k/uL (1.3-7.7); Neutrophils % (A) 89 %; Platelet Count 268 k/uL (150-450); RBC 3.49 m/uL (3.80-5.40); RDW 17.1 % (11.5-15.5); WBC 17.4 k/uL (3.8-10.6)
[2022-02-19] MEDS: ONDANSETRON 4 MG/2 ML VIAL IVP PRN (11:05)
--- NOTE | 2022-02-19 11:26 | CA ---
Transthoracic Echo Report Name: Amada Brady Age: 76 Gender: F : 1945 Exam Date: 02/18/2022 13:58 Exam Location: [place] [facility] Ht (in): 65 Wt (lb): 149 Ordering Physician: Enrique Henning DO ([email or web address]) Attending/Referring Phys: [employer]rier Agnieszka Puentes RDCS Procedure CPT: Indications: re: LV function, hypotension Cardiac Hx: Technical Quality: Good Contrast 1: Total Dose (mL): Contrast 2: Total Dose (mL): MEASUREMENTS (Male / Female) Normal Values 2D ECHO LV Diastolic Diameter PLAX 5.0 cm 4.2 - 5.9 / 3.9 - 5.3 cm LV Systolic Diameter PLAX 4.6 cm IVS Diastolic Thickness 1.1 cm 0.6 - 1.0 / 0.6 - 0.9 cm LVPW Diastolic Thickness 1.1 cm 0.6 - 1.0 / 0.6 - 0.9 cm LV Relative Wall Thickness 0.4 LA Volume 44.8 cm??? 18 - 58 / 22 - 52 cm??? M-MODE Aortic Root Diameter MM 3.6 cm LA Systolic Diameter MM 2.9 cm LA Ao Ratio MM 0.8 AV Cusp Separation MM 1.7 cm DOPPLER AV Peak Velocity 87.1 cm/s AV Peak Gradient 3.0 mmHg AI Peak Velocity 146.6 cm/s AI Peak Gradient 8.6 mmHg AI Pressure Half Time 676.6 ms MV Area PHT 2.9 cm??? MR Peak Velocity 372.1 cm/s MR Peak Gradient 55.4 mmHg Mitral E Point Velocity 54.0 cm/s Mitral A Point Velocity 95.0 cm/s Mitral E to A Ratio 0.6 MV Deceleration Time 262.1 ms MV E' Velocity 2.9 cm/s Mitral E to MV E' Ratio 18.4 TR Peak Velocity 289.3 cm/s TR Peak Gradient 33.5 mmHg Right Ventricular Systolic Press 37.9 mmHg FINDINGS Left Ventricle Mildly increased septal wall thickness. Mildly increased posterior wall thickness. Left ventricular ejection fraction is estimated at 20%. Severe hypokinesis with basal portion moving only.grade 1 diastolic dysfunction. Right Ventricle The right ventricle is normal in size and function. Right Atrium The right atrium is normal in size. Left Atrium The left atrium is normal in size. Mitral Valve Structurally normal mitral valve without significant stenosis or prolapse. There is mild mitral regurgitation. Moderate Mitral valve thickened. Mild mitral annular calcification. Aortic Valve Structurally normal aortic valve without significant sclerosis or stenosis. There is a trace aortic regurgitation. Focal thickening of the aortic valve cusps. Tricuspid Valve Structurally normal tricuspid valve without significant stenosis. Pulmonary artery systolic pressure is normal. Mild tricuspid regurgitation. Pulmonic Valve Structurally normal pulmonic valve without significant stenosis. There is no pulmonic regurgitation. Pericardium Normal pericardium without effusion. Aorta Normal aortic root dimension. CONCLUSIONS Cardiomyopathy with severe LV systolic dysfunction Mild mitral regurgitation Mild tricuspid regurgitation Previewed by: Dr. Rudolph Salguero MD (Electronically Signed) Final Date: 19 Feb 2022 11:25
[2022-02-19 11:46] LABS: Glucose,Whole Blood 165 mg/dL (75-99)
--- NOTE | 2022-02-19 11:50 | P.PN ---
Subjective HISTORY OF PRESENTING ILLNESS Patient is a pleasant 76-year-old female with history of CAD with prior stenting of the RCA in 2010, hypertension, hyperlipidemia, diarrhea who follows in the office with Dr. Cook. She has a history of prior heart catheterization from August 2018 which showed patent stent and no significant disease on the left. She states she has been doing fairly well cardiac-torres however is unsure why she came in a week ago however appears she was having diarrhea. She is noted to have high white blood cell count 16.9, acute kidney injury with creatinine up to 1.6, hyponatremia sodium down to 1:30, albumin 2.4, CRP 16. She eventually underwent endoscopy showing concern of ulcerative colitis. She was placed on steroids which she is tolerating. She was briefly on clear liquid diets and has been advancing. She admits she does not have much of an appetite and has not been eating and drinking much. Cardiology was consult is secondary to tachycardia. On review of telemetry heart rates were in the low 100s and up to the 150s yesterday with borderline blood pressures. She does have some lower extremity edema which she states is new. Suspect related to third spacing from protein calorie malnutrition. She has been on the Lasix 20 mg daily. She has been receiving Midrin with blood pressures in the 90s systolic. She was temporarily placed on Cardizem drip however this has been discontinued. EKG does show sinus tachycardia however additional prolonged QTC deep T-wave inversions V3 through V6 possibly concerning for ischemia, possible Takotsubo's cardiomyopathy. Denies any chest pain or pressure. Her heart rates have improved into the 80s and all appears sinus. 02/19 Patient seen and examined. Patient complaining of worsened pain in the abdomen and does have more abdominal distention. Abdominal x-ray was ordered. Denies any hematochezia or melena. She is also complaining of some right shoulder pain which may be preferred pain. Troponin was noted to be mildly elevated 0.1 yesterday and repeat was ordered for today. She denies any chest pain or pressure. Denies any shortness breath. Has been receiving IV fluids at 100 mL per hour with no oral intake today. Denies any significant shortness breath currently. Echo was performed which showed Ejection fraction 20% with findings may be consistent with Takotsubo's cardiomyopathy. PHYSICAL EXAMINATION Vital signs reviewed. CONSTITUTIONAL: No apparent distress, chronically ill appearing HEENT: Head is normocephalic. Pupils are equal, round. Sclerae anicteric. Mucous membranes of the mouth are moist. No JVD. No carotid bruit. CHEST EXAMINATION: Lungs are clear to auscultation. No chest wall tenderness is noted on palpation or with deep breathing. HEART EXAMINATION: Regular rate and rhythm. S1, S2 heard. No murmurs, gallops or rub. ABDOMEN: Soft,+tender, +more distended. EXTREMITIES: 2+ peripheral pulses, 1+ lower extremity edema and no calf tenderness. NEUROLOGIC EXAMINATION: Patient is awake, alert and oriented x3. ASSESSMENT 1. Sinus tachycardia appears reactive secondary to dehydration, ulcerative colitis flare 2. Hypotension suspect related to dehydration +/- sepsis 3. Abnormal EKG with T-wave inversions as well as QT prolongation. Typical EKG seen with Takotsubo's cardiomyopathy 4. Severe cardiomyopathy EF 20% with findings concerning for Takotsubo's cardiomyopathy 5. Diarrhea with findings concerning for ulcerative colitis 6. Hypertension, currently borderline hypotensive 7. Lower extremity edema, suspect related to third spacing from protein calorie malnutrition 8. Severe protein calorie malnutrition 9. History of coronary artery disease 10. Non-STEMI suspect related to type II mechanism from sepsis, ulcerative colitis flare, Takotsubo's cardiomopathy 11. Abdominal pain worse today with increased abdominal distention and right shoulder pain. Right shoulder pain may be referred pain. PLAN 2-D echo shows severe cardiomyopathy EF 20% with findings consistent with Takotsubo's cardiomyopathy. Mildly elevated troponins and abnormal EKG which I'll fixed with clinical presentation. Although she does have severe cardiomyopathy has not been eating or drinking and does not appear time overloaded on exam. Continue with gentle IV fluids and monitor response. Hypotension may be related to some degree of dehydration as well as sepsis. New abdominal pain today and x-ray is ordered and workup pending by surgery/internal medicine. Further recommendations to follow. prognosis guarded. Objective - Vital Signs Vital signs: Vital Signs Temp 98.4 F 02/19/22 08:00 Pulse 92 02/19/22 08:43 Resp 16 02/19/22 08:00 BP 89/59 02/19/22 08:00 Pulse Ox 94 L 02/19/22 08:00 FiO2 Intake & Output 02/18/22 02/19/22 02/19/22 18:59 06:59 18:59 Intake Total 160 40 Output Total 600 450 250 Balance -440 -450 -210 Intake: Oral 160 40 Output: Urine 600 450 250 Uretheral (Santos) 600 Other: Voiding Method Diaper Indwelling Catheter # Bowel Movements 1 2 1 - Labs CBC & Chem 7: 02/19/22 08:31 02/19/22 08:31 Labs: Abnormal Lab Results - Last 24 Hours (Table) 02/18/22 02/18/22 02/18/22 Range/Units 14:16 16:47 21:06 WBC (3.8-10.6) k/uL RBC (3.80-5.40) m/uL Hgb (11.4-16.0) gm/dL Hct (34.0-46.0) % RDW (11.5-15.5) % Neutrophils # (1.3-7.7) k/uL Sodium (137-145) mmol/L Chloride (98-107) mmol/L BUN (7-17) mg/dL Glucose (74-99) mg/dL POC Glucose (mg/dL) 166 H 109 H (75-99) mg/dL Calcium (8.4-10.2) mg/dL Troponin I 0.163 H* (0.000-0.034) ng/mL 02/19/22 02/19/22 Range/Units 08:31 08:31 WBC 17.4 H (3.8-10.6) k/uL RBC 3.49 L (3.80-5.40) m/uL Hgb 10.3 L (11.4-16.0) gm/dL Hct 32.7 L (34.0-46.0) % RDW 17.1 H (11.5-15.5) % Neutrophils # 15.4 H (1.3-7.7) k/uL Sodium 135 L (137-145) mmol/L Chloride 108 H (98-107) mmol/L BUN 33 H (7-17) mg/dL Glucose 102 H (74-99) mg/dL POC Glucose (mg/dL) (75-99) mg/dL Calcium 7.3 L (8.4-10.2) mg/dL Troponin I (0.000-0.034) ng/mL Microbiology - Last 24 Hours (Table) 02/18/22 03:41 Blood Culture - Preliminary Blood No Growth after 24 hours
--- NOTE | 2022-02-19 12:21 | XR ---
EXAMINATION TYPE: XR KUB DATE OF EXAM: 02/19/2022 COMPARISON: 02/17/2022 INDICATION: Severe abdominal pain right upper quadrant TECHNIQUE: Single view abdomen supine view FINDINGS: There is abundant gas within the abdomen. There are some changes suggesting this may be free air. CT abdomen and pelvis recommended for additional evaluation. Psoas margins are normal. Cholecystectomy clips in the right upper quadrant. No organomegaly is present. IMPRESSION: 1. Findings suggestive for pneumoperitoneum. CT abdomen and pelvis recommended for additional workup. Report was called to the floor by Dr. Barnes by telephone at time of interpretation.
--- NOTE | 2022-02-19 14:07 | CT ---
"EXAMINATION TYPE: CT abdomen pelvis wo con DATE OF EXAM: 02/19/2022 COMPARISON: None INDICATION: Pneumoperitoneum DLP: 689.3 mGycm, Automated exposure control for dose reduction was used. CONTRAST: 0 mL of Isovue 300. Study performed without Oral Contrast TECHNIQUE: Axial images were obtained from above the diaphragm to the pubic rami in the axial plane a t 5 mm thick sections. Reconstructed images are reviewed on the computer in the coronal plane. FINDINGS: Limited CT sections are obtained the lung bases. Small bilateral pleural effusions are present. [place] infiltrates are present. Correlate for pneumonia or compressive atelectasis. CT ABDOMEN: Free air is present. Source is not identified. Small amount of air may be passing into th e subcutaneous regions from abdominal wall hernias. Liver: Normal Spleen: Normal Pancreas: Normal Adrenal glands: The adrenal glands are normal. Gallbladder: Normal Kidneys: No masses are evident. No hydronephrosis is present. No cysts are present. Small calcific ations are present within the bilateral kidneys without evidence of obstruction. Aorta: Vascular calcification is within the aorta. There is some mild prominence of the abdominal ao rta with an AP diameter of 3.3 cm within its midportion. Inferior vena cava: Normal. CT PELVIS: Subcutaneous edema is present. Loops of bowel within the abdomen and pelvis as visualized appear unremarkable. There are loops of marianne wel which are incompletely distended or lack oral contrast limiting their evaluation. Appendix: Normal as visualized. Urinary bladder: There is air present within the catheterized urinary bladder. Genitourinary structures: Uterus and ovaries are not identified. Osseous structures: No suspicious lytic or sclerotic lesions. IMPRESSIONS: 1. Large volume of free air within the upper abdomen. Source is not identified. 2. Small bilateral pleural effusions with adjacent infiltrates within the visualized portions of the lung bases. A Red level critical message alert has been initiated for Yue Jordan MD via the [employer] 36 0 | Critical Results System on 02/19/2022 2:05 PM. This message alert has been sent to uYe jordan MD via the preferences provided by the clinician for the receipt of Radiology Critical Findings. Message ID [id number]."
--- NOTE | 2022-02-19 14:42 | P.PN ---
Subjective Progress Note Date: 02/19/22 CHIEF COMPLAINT: Ulcerative colitis HISTORY OF PRESENT ILLNESS: The patient is a 76-year-old female status post colonoscopy with features of ulcerative colitis. I was notified by nursing that the patient developed acute onset severe abdominal pain prompting abdominal x- ray. CT of the abdomen and pelvis was obtained. I came to the patient's bedside. Patient reports focal pain along the epigastrium. I personally reviewed her computed tomography scan consistent of pneumoperitoneum and perforated viscus. Patient asked year, full name, month. Patient was able to answer all questions. Surgery described including removal of colon, ostomy bag, transferred to the intensive care unit, placement of ventilator. Due to patient's recent echo demonstrating severe cardiac depression with ejection f raction less than 30%, chance of cardiac event high. Risks without surgery including reviewed. "Leave me alone. I want to . I had a colostomy bag before. I don't want surgery." Nurse also at bedside during informed consent for procedure. Patient's son contacted by nurse with conference call performed. Son is informed that patient will need surgery including colostomy bag, transferred to the intensive care unit, risk of surgery of mortality with and without surgery. Son informed that his mother does not want surgery. Patient spoke to her son over the phone also telling him she wants to to be left alone. She is prepared to . Hospitalist Dr. Sanchez also at bedside during d iscussion. Risks without surgery also described of . Surgery described as well through hospitalist. Patient reiterated she doesn't want anything done. She was to be made comfortable. She wants to drink water. Palliative care options also reviewed. PHYSICAL EXAM: VITAL SIGNS: Reviewed CONSTITUTIONAL: Well developed and in no acute distress. Nontoxic in appearance. EYES: Conjuctivae without sclera icterus. Extraocular movements grossly intact. HEAD, EARS, NOSE, THROAT: Moist buccal mucosa. Head is atraumatic, normocephalic. Hears conversational speech. No nasal drainage. Wears glasses. RESPIRATORY: Modest labor respirations and equal bilateral excursions. CARDIOVASCULAR: Palpable 2+ radial pulses. ABDOMEN: Distended. Focal tenderness of the epigastrium with incisional hernia. MUSCULOSKELETAL: No gross deformity of the lower extremities noted. No clubbing. No cyanosis. SKIN: Good skin turgor. Well perfused. NEUROLOGIC: Cranial nerves II through XII grossly intact. No focal or lateralizing signs. PSYCH: Flat affect. Alert and oriented to person, place and time. CLINICAL LABS: Reviewed. WBC down from 23.3-17.4. Hemoglobin down from 11.2- 10.3. Troponin is trending down 0.163 to 0.085 STUDIES: Abdominal x-ray independently reviewed demonstrating moderate gas. This is my independent interpretation. CT of the abdomen and pelvis and appendix were reviewed demonstrating moderate pneumoperitoneum with displacement of the liver. Air tracking into the incisional hernia of the epigastrium. This is my independent interpretation. ASSESSMENT: 1. Pneumoperitoneum, new in presence of ulcerative colitis 2. Adrenal suppression with steroids 3. Elevated troponins 4. Perforated viscus 5. Leukocytosis PLAN: 1. Patient offered surgical intervention with risks of mortality without surgical intervention as well. Patient declined surgical intervention. Patient question change of CODE STATUS to DO NOT RESUSCITATE 2. Additionally, alternatives of palliative care management also described. 3. Patient in guarded condition. CRITICAL CARE TIME: 36 minutes for coordination of care, management, acute event requiring surgical intervention Objective - Vital Signs Vital signs: Vital Signs Temp 98.4 F 02/19/22 08:00 Pulse 109 H 02/19/22 12:00 Resp 16 02/19/22 12:00 BP 96/56 02/19/22 12:00 Pulse Ox 96 02/19/22 12:00 FiO2 Intake & Output 02/18/22 02/19/22 02/19/22 18:59 06:59 18:59 Intake Total 160 40 Output Total 600 450 250 Balance -440 -450 -210 Intake: Oral 160 40 Output: Urine 600 450 250 Uretheral (Santos) 600 Other: Voiding Method Diaper Indwelling Catheter Indwelling Catheter # Bowel Movements 1 2 1 - Labs CBC & Chem 7: 02/19/22 08:31 02/19/22 08:31 Labs: Abnormal Lab Results - Last 24 Hours (Table) 02/18/22 02/18/22 02/18/22 Range/Units 14:16 16:47 21:06 WBC (3.8-10.6) k/uL RBC (3.80-5.40) m/uL Hgb (11.4-16.0) gm/dL Hct (34.0-46.0) % RDW (11.5-15.5) % Neutrophils # (1.3-7.7) k/uL Sodium (137-145) mmol/L Chloride (98-107) mmol/L BUN (7-17) mg/dL Glucose (74-99) mg/dL POC Glucose (mg/dL) 166 H 109 H (75-99) mg/dL Calcium (8.4-10.2) mg/dL Troponin I 0.163 H* (0.000-0.034) ng/mL 02/19/22 02/19/22 02/19/22 Range/Units 08:31 08:31 08:31 WBC 17.4 H (3.8-10.6) k/uL RBC 3.49 L (3.80-5.40) m/uL Hgb 10.3 L (11.4-16.0) gm/dL Hct 32.7 L (34.0-46.0) % RDW 17.1 H (11.5-15.5) % Neutrophils # 15.4 H (1.3-7.7) k/uL Sodium 135 L (137-145) mmol/L Chloride 108 H (98-107) mmol/L BUN 33 H (7-17) mg/dL Glucose 102 H (74-99) mg/dL POC Glucose (mg/dL) (75-99) mg/dL Calcium 7.3 L (8.4-10.2) mg/dL Troponin I 0.085 H* (0.000-0.034) ng/mL 02/19/22 Range/Units 11:44 WBC (3.8-10.6) k/uL RBC (3.80-5.40) m/uL Hgb (11.4-16.0) gm/dL Hct (34.0-46.0) % RDW (11.5-15.5) % Neutrophils # (1.3-7.7) k/uL Sodium (137-145) mmol/L Chloride (98-107) mmol/L BUN (7-17) mg/dL Glucose (74-99) mg/dL POC Glucose (mg/dL) 165 H (75-99) mg/dL Calcium (8.4-10.2) mg/dL Troponin I (0.000-0.034) ng/mL Microbiology - Last 24 Hours (Table) 02/18/22 03:41 Blood Culture - Preliminary Blood No Growth after 24 hours
[2022-02-19] MEDS: MORPHINE SULFATE 4 MG/ML SYRINGE IVP PRN ×2 (14:47→20:11)
[2022-02-19 16:31] LABS: Glucose,Whole Blood 139 mg/dL (75-99)
--- NOTE | 2022-02-19 19:18 | P.PN ---
Subjective Progress Note Date: 02/19/22 Principal diagnosis: Diarrhea secondary with severe colitis Dehydration and hypovolemia Acute kidney injury likely prerenal 76-year-old female with a known history of COPD, hypertension, GERD, history of DVT, coronary artery disease history of stent placement, anxiety/depression and previous history of smoking and daily alcohol use presents to ER with complaints of dizziness. Patient has been having diarrhea for the past couple of months and was in the hospital previously patient was sent to Rehab and was recently discharged home. Patient still has been having loose stool. However denies any complaints of abdominal pain. No chest pain or shor tness of breath. No nausea or vomiting. On admission patient was found to be hypotensive with blood pressure 87/62 pulse is 118 respiration 18 and pulse ox 97% on room air Chest x-ray showed chronic changes without acute pulmonary process. KUB x-ray showed overall nonspecific but favored nonobstructive bowel gas pattern. Moderate to severe proximal chronic fecal stasis is felt present currently. EKG showed sinus tachycardia Laboratory showed WBC 16.9 hemoglobin 12.2 and platelets 545 Sodium 130 potassium 4.9 chloride 96 BUN 31 and creatinine 1.63 and lipase 20 albumin 2.4 Urinalysis is negative for infection. 02/18/2022 Patient is seen and evaluated in the room at bedside; No reports of nausea and vomiting. No fevers or chills. No productive sputum Cardiology consulted for tachycardia; patient had episodes of hypotension with a heart rate escalating to 150s; patient has been placed on Midrin 10 mg by mouth 3 times a day; sinus tachycardia likely related to dehydration; EKG reveals T- wave inversion; patient does not have any complaint of chest pain; This may represent Takotsubo's cardiomyopathy versus other. Prolonged QT and avoid QT prolonging medications. Repeat EKG. Check 2-D echo. Stop Lasix given lower extremity edema appears related to third spacing and appears dehydrated. Monitor response of IV fluids at 100 mL per hour. Further recommendations to follow. Patient remains on IV steroids for acute flare of ulcerative colitis; patient is status post colonoscopy revealing features of ulcerative colitis --WBC remained elevated likely related to steroid therapy Surgery on board and recommending to continue with clear liquid diet 02/19/2022 Patient is seen and evaluated with Dr. Templeton an RN at bedside Was brought to my attention that patient was complaining of severe abdominal pain and distention; patient was evaluated and started abdominal x-ray was obtained which was suspicious for free air under diaphragm; CT of the abdomen was ordered and revealed large volume of free air within upper abdomen, source not identified Dr. Templeton was notified who came to see the patient at bedside; patient was found to be with softer blood pressures; patient was advised off inability to administer pain medications due to hypotension Patient's condition, computed tomography scan findings and risks and prognosis was discussed with patient in great detail; patient is a and O 4; she refuses to have any surgical intervention and continues to repeat that she wants to eat and wants to be left alone; patient's son was kept on speaker phone while options were discussed with patient and he agreed with patient's decision of no surgical intervention and proceeding with making patient DO NOT RESUSCITATE and consult during palliative/hospice care Objective - Vital Signs Vital signs: Vital Signs Temp 98.4 F 02/19/22 08:00 Pulse 109 H 02/19/22 12:00 Resp 16 02/19/22 12:00 BP 96/56 02/19/22 12:00 Pulse Ox 96 02/19/22 12:00 FiO2 Intake & Output 02/18/22 02/19/22 02/19/22 18:59 06:59 18:59 Intake Total 160 40 Output Total 600 450 250 Balance -440 -450 -210 Intake: Oral 160 40 Output: Urine 600 450 250 Uretheral (Santos) 600 Other: Voiding Method Diaper Indwelling Catheter Indwelling Catheter # Bowel Movements 1 2 1 - Exam GENERAL: The patient is alert and oriented x3, not in any acute distress. Well developed, well nourished. HEENT: Pupils are round and equally reacting to light. EOMI. No scleral icterus. No conjunctival pallor. Normocephalic, atraumatic. No pharyngeal erythema. No thyromegaly. CARDIOVASCULAR: S1 and S2 present. No murmurs, rubs, or gallops. PULMONARY: Chest is clear to auscultation, no wheezing or crackles. -ABDOMEN: Soft, periumbilical tenderness, no rebound tenderness or guarding, non distended, normoactive bowel sounds. No palpable organomegaly. MUSCULOSKELETAL: No joint swelling or deformity. EXTREMITIES: No cyanosis, clubbing, or pedal edema. NEUROLOGICAL: Gross neurological examination did not reveal any focal deficits. SKIN: No rashes. no petechiae. - Labs CBC & Chem 7: 02/19/22 08:31 02/19/22 08:31 Labs: Abnormal Lab Results - Last 24 Hours (Table) 02/18/22 02/18/22 02/18/22 Range/Units 14:16 16:47 21:06 WBC (3.8-10.6) k/uL RBC (3.80-5.40) m/uL Hgb (11.4-16.0) gm/dL Hct (34.0-46.0) % RDW (11.5-15.5) % Neutrophils # (1.3-7.7) k/uL Sodium (137-145) mmol/L Chloride (98-107) mmol/L BUN (7-17) mg/dL Glucose (74-99) mg/dL POC Glucose (mg/dL) 166 H 109 H (75-99) mg/dL Calcium (8.4-10.2) mg/dL Troponin I 0.163 H* (0.000-0.034) ng/mL 02/19/22 02/19/22 02/19/22 Range/Units 08:31 08:31 08:31 WBC 17.4 H (3.8-10.6) k/uL RBC 3.49 L (3.80-5.40) m/uL Hgb 10.3 L (11.4-16.0) gm/dL Hct 32.7 L (34.0-46.0) % RDW 17.1 H (11.5-15.5) % Neutrophils # 15.4 H (1.3-7.7) k/uL Sodium 135 L (137-145) mmol/L Chloride 108 H (98-107) mmol/L BUN 33 H (7-17) mg/dL Glucose 102 H (74-99) mg/dL POC Glucose (mg/dL) (75-99) mg/dL Calcium 7.3 L (8.4-10.2) mg/dL Troponin I 0.085 H* (0.000-0.034) ng/mL 02/19/22 Range/Units 11:44 WBC (3.8-10.6) k/uL RBC (3.80-5.40) m/uL Hgb (11.4-16.0) gm/dL Hct (34.0-46.0) % RDW (11.5-15.5) % Neutrophils # (1.3-7.7) k/uL Sodium (137-145) mmol/L Chloride (98-107) mmol/L BUN (7-17) mg/dL Glucose (74-99) mg/dL POC Glucose (mg/dL) 165 H (75-99) mg/dL Calcium (8.4-10.2) mg/dL Troponin I (0.000-0.034) ng/mL Microbiology - Last 24 Hours (Table) 02/18/22 03:41 Blood Culture - Preliminary Blood No Growth after 24 hours Assessment and Plan Assessment: Diarrhea secondary with severe colitis and multiple ulceration on cobblestone appearance of the rectum and up to transverse(On colonoscopy), inflammatory bowel disease is suspected versus other Dehydration and hypovolemia, resolving Generalized weakness Acute kidney injury likely prerenal. Resolved Hypovolemic hyponatremia. Improved Leukocytosis likely reactive. Back to normal Coronary disease history of stent placement COPD not in exacerbation Hypertension Osteoarthritis GERD Anxiety/depression Please history of smoking Plan: This is a pleasant 76 years old female who presents with diarrhea and hypertension Continue with normal saline Continue with IV Solu-Medrol Give normal saline bolus Follow-up stool studies Checked procalcitonin GI service team following the patient, however they signed off for now, not available in this facility for the rest of the week and weekend Pulmonary team on the case. We will check abdominal x-ray tomorrow and ask for surgical team evaluation. Labs and medication were reviewed.. Continue same treatment. Continue with symptomatic treatment. Resume home medication. Monitor lytes and vitals. DVT and GI prophylaxis. Further recommendations as per clinical course of the patient DVT prophylaxis: Subcutaneous heparin
[2022-02-19 19:59] VITALS: BP 96/78; RESP 12; TEMP 97.3
[2022-02-19 20:08] VITALS: PULSE 135
[2022-02-19] MEDS ORDERED: HYDROmorphone 1 MG/ML 1 ML SYRINGE IVP PRN (20:29)
[2022-02-19] MEDS ORDERED: ZOLPIDEM 5 MG TAB PO PRN (20:29)
[2022-02-19 22:11] LABS: Glucose,Whole Blood 190 mg/dL (75-99)
[2022-02-20] MEDS ORDERED: IOPAMIDOL CONTRAST (ORAL USE) VIAL PO PRN (09:00)
--- NOTE | 2022-02-23 12:52 | CDI ---
Documentation Clarification Form Date: 02/23/2022 12:31:00 PM From: Lilo Rodriguez Admit Date: 02/11/2022 03:15:00 PM Patient Name: Amada Brady Visit Number: [id number] Discharge Date: 02/20/2022 02:00:00 AM ATTENTION: The Clinical Documentation Specialists (CDI) and [facility] Coding Staff appreciate your assistance in clarifying documentation. Please respond to the clarification below the line at the bottom and electronically sign. The CDI & [facility] Coding staff will review the response and follow-up if needed. Please note: Queries are made part of the Legal Health Record. If you have any questions, please contact the author of this message via ITS. Dr. Yue Jordan Patient presented with diarrhea, elevated WBC's, hypotensive and tachycardic. Per colonoscopy patient diagnosed with ulcerative colitis. Per PN 02/19/22 Type II PA due to sepsis, hypotension due to sepsis. The diagnosis of sepsis not carried through chart. Please clarify if patient had sepsis and if so, was it POA. History/Risk Factors: ulcerative colitis. Severe Malnutrition, tachycardia, elevated WBC's Clinical Indicators: WBC: 16.9 Lactic acid: .9 Blood cultures: No growth Vitals signs: 97.9 F, 118 bpm, 18, 87/62 97 RA Treatment: IV antibiotics Antibiotics: Flagyl, Rocephin and Zosyn IV Bolus: IV hydration with NS In your professional opinion, please clarify if these findings signify one of the following conditions: [ x ] Sepsis POA [ ] Sepsis, Not POA [ ] Sepsis ruled out [ ] Severe Sepsis with organ failure [ ] Septic Shock [ ] SIRS, without underlying infectious process [ ] Other, please specify [ ] Unable to determine SIRS Criteria: 2 or more of the following may indicate SIRS -Temperature < 96.8F (36C) or > 101.0F (38.3C) -Heart Rate > 90 bpm -Respiratory Rate > 20 breaths/min or PaCO2 < 32 mmHg -White Blood Cell Count > 12,000 or < 4,000 cells/mm3 or > 10% bands MTDD
--- NOTE | 2022-02-24 20:03 | P.DS ---
Providers Date of admission: 02/11/22 15:15 Expected date of discharge: 02/19/22 Attending physician: Yue Jordan Consults: 02/11/22 22:42 Consult Physician Routine Consulting Provider: Shoaib Strauss Consult Reason/Comments: COPD, Known pt. Do you want consulting provider notified?: Yes, Notify in am 02/12/22 10:28 Consult Physician Routine Consulting Provider: Oralia Salguero Consult Reason/Comments: Chronic diarrhea Do you want consulting provider notified?: Yes 02/16/22 20:07 Consult Physician Urgent Consulting Provider: Vasquez Newberry Consult Reason/Comments: colitis, continued symptoms with treatments Do you want consulting provider notified?: Yes, Notify in am 02/17/22 22:04 Consult Physician Urgent Consulting Provider: Jacob Pedraza Consult Reason/Comments: elevated heart rate Do you want consulting provider notified?: Already Contacted Primary care physician: Shoaib Strauss [facility] Course: 76-year-old female with a known history of COPD, hypertension, GERD, history of DVT, coronary artery disease history of stent placement, anxiety/depression and previous history of smoking and daily alcohol use presents to ER with complaints of dizziness. Patient has been having diarrhea for the past couple of months and was in the hospital previously patient was sent to Rehab and was recently discharged home. Patient still has been having loose stool. However denies any complaints of abdominal pain. No chest pain or shortness of breath. No nausea or vomiting. On admission patient was found to be hypotensive with blood pressure 87/62 pulse is 118 respiration 18 and pulse ox 97% on room air Chest x-ray showed chronic changes without acute pulmonary process. KUB x-ray showed overall nonspecific but favored nonobstructive bowel gas pattern. Moderate to severe proximal chronic fecal stasis is felt present currently. EKG showed sinus tachycardia Laboratory showed WBC 16.9 hemoglobin 12.2 and platelets 545 Sodium 130 potassium 4.9 chloride 96 BUN 31 and creatinine 1.63 and lipase 20 albumin 2.4 Urinalysis is negative for infection. 02/12/2022. Patient is currently resting in the bed. Awake alert and oriented x3. Still having diarrhea. Occasional cramping abdominal pain. No nausea or vomiting. No cough or sputum production. No complaints of chest pain or shortness of breath. Laboratory data showed WBC 12.6 hemoglobin 12.1 and platelets 342 Sodium 133 potassium 4.9 chloride 103 BUN 27 creatinine 1.09 and blood sugar 64 and calcium 7.5 Patient is being continued on IV hydration with normal saline and electrolyte replacement. Renal function is improving. 02/13/2022. Patient is resting in the bed. Awake alert and oriented.. No complaints of chest pain or shortness of breath. Continues to have diarrhea. Blood pressure is stable and improved. Patient was seen by gastroenterology and is planning for colonoscopy. Patient has been afebrile. No nausea vomiting abdominal pain or diarrhea. Laboratory data showed WBC trending down to 9.6 hemoglobin 10.3 and platelets 410 Sodium 135, potassium 3.7 chloride 107 BUN 23 and creatinine 0.96 and calcium 7.5. Subjective: Resume in the care of the patient on 02/14/2022 Patient states that her diarrhea improving from 5 bouts daily on admission, yesterday she had only 2 bowel movements. No nausea vomiting, no abdominal pain. No more dizziness. Stool studies are pending EGD and colonoscopy to be done by GI team We will order PT/OT because patient feels generally weak 02/15/2022 patient still have diarrhea, no significant abdominal pain. He was nothing by mouth today and he underwent EGD and colonoscopy, showing esophagitis and severe colitis with multiple ulceration and cobblestoning of the rectum and up to the transverse colon, inflammatory bowel disease is suspected and patient was started on Solu-Medrol 20 mg 3 times a day per GI team. Also stool studies and C. diff this is requested. Biopsy still pending. We will check ESR and CRP 02/16/2022 Patient is awake and alert, abdominal pain and minimal today. As per patient but still she has diarrhea although it was not witnessed by staff. Patient still on IV steroids some Medrol 20 mg every 8 hours. Also normal saline 75 mL/h and aspirin 81 mg. Her ESR is elevated at 28 and CRP 16.2. Pulmonary team also phoned the case closely. The patient already evaluated by GI service. The evening her blood pressure was 94/62 and slightly tachycardic 109 area we will give him bolus of normal saline 500 mL. We will ask for surgery team evaluated the patient and abdominal x-ray tomorrow 02/18/2022 Patient is seen and evaluated in the room at bedside; No reports of nausea and vomiting. No fevers or chills. No productive sputum Cardiology consulted for tachycardia; patient had episodes of hypotension with a heart rate escalating to 150s; patient has been placed on Midrin 10 mg by mouth 3 times a day; sinus tachycardia likely related to dehydration; EKG reveals T- wave inversion; patient does not have any complaint of chest pain; This may represent Takotsubo's cardiomyopathy versus other. Prolonged QT and avoid QT prolonging medications. Repeat EKG. Check 2-D echo. Stop Lasix given lower extremity edema appears related to third spacing and appears dehydrated. Monitor response of IV fluids at 100 mL per hour. Further recommendations to follow. Patient remains on IV steroids for acute flare of ulcerative colitis; patient is status post colonoscopy revealing features of ulcerative colitis --WBC remained elevated likely related to steroid therapy Surgery on board and recommending to continue with clear liquid diet 02/19/2022 Patient is seen and evaluated with Dr. Templeton an RN at bedside Was brought to my attention that patient was complaining of severe abdominal pain and distention; patient was evaluated and started abdominal x-ray was obtained which was suspicious for free air under diaphragm; CT of the abdomen was ordered and revealed large volume of free air within upper abdomen, source not identified Dr. Templeton was notified who came to see the patient at bedside; patient was found to be with softer blood pressures; patient was advised off inability to administer pain medications due to hypotension Patient's condition, computed tomography scan findings and risks and prognosis was discussed with patient in great detail; patient is a and O 4; she refuses to have any surgical intervention and continues to repeat that she wants to eat and wants to be left alone; patient's son was kept on speaker phone while opt ions were discussed with patient and he agreed with patient's decision of no surgical intervention and proceeding with making patient DO NOT RESUSCITATE and consult during palliative/hospice care Alert and oriented patient mentioned she would like to pursue further pain management before her hospice consultation in the morning. I described comfort care to her and she agreed that she would like to pursue. I had her explain to me what comfort care orders meant and she stated it meant that she will be comfortable and pain free while she . Physician notified and comfort care initiated. Family notified of comfort care orders and family was encouraged to come sit by bedside. Patient at 22:31 Patient Condition at Discharge: Fair Plan - Discharge Summary Discharge Rx Participant: No New Discharge Prescriptions: New predniSONE 10 mg PO DAILY #126 tab No Action Vitamin E (Dl,Tocopheryl Acet) [Vitamin E (400 Iu = 180 mg)] 400 units PO BID Ascorbic Acid [Vitamin C] 1,000 mg PO DAILY@1700 Potassium Chloride [K-Tab ER] 20 meq PO DAILY@1700 [place]-3 Fatty Acids [[place]-3] 1,000 mg PO DAILY@1700 Metoprolol Tartrate [Lopressor] 25 mg PO BID Aspirin [Adult Low Dose Aspirin EC] 81 mg PO DAILY@1700 DULoxetine HCL [Cymbalta] 30 mg PO DAILY Naproxen Sodium [Aleve] 440 mg PO Q12H PRN PRN Reason: Pain Albuterol Sulfate [Albuterol Sulfate Hfa] 2 puff INHALATION RT-QID PRN PRN Reason: Shortness Of Breath Calcium Carbonate/Vitamin D3 [Calcium 500-Vit D3 5 Mcg (200 Iu)] 1 tab PO DAILY@1700 Cholecalciferol [Vitamin D3 (25 Mcg = 1000 Iu)] 50 mcg PO DAILY@1700 Ipratropium-Albuterol Nebulize [Duoneb 0.5 mg-3 mg/3 ml Soln] 3 ml INHALATION RT-QID Dicyclomine [Bentyl] 10 mg PO QID 30 Days #120 cap Budesonide-Formot 160-4.5 Mcg [Symbicort 160-4.5 Mcg Inhaler] 2 puff INHALATION RT-BID gm Pantoprazole [Protonix] 40 mg PO DAILY 30 Days #30 tab LORazepam [Ativan] 0.5 mg PO Q6H PRN 2 Days #8 tab PRN Reason: Anxiety Furosemide [Lasix] 20 mg PO DAILY Discharge Medication List Ascorbic Acid [Vitamin C] 1,000 mg PO DAILY@17006/14/18 [History] Aspirin [Adult Low Dose Aspirin EC] 81 mg PO DAILY@169906/14/18 [History] DULoxetine HCL [Cymbalta] 30 mg PO DAILY 06/14/18 [History] Metoprolol Tartrate [Lopressor] 25 mg PO BID 06/14/18 [History] [place]-3 Fatty Acids [[place]-3] 1,000 mg PO DAILY@169906/14/18 [History] Potassium Chloride [K-Tab ER] 20 meq PO DAILY@06/14/18 [History] Vitamin E (Dl,Tocopheryl Acet) [Vitamin E (400 Iu = 180 mg)] 400 units PO BID 06/14/18 [History] Naproxen Sodium [Aleve] 440 mg PO Q12H PRN 12/16/18 [History] Albuterol Sulfate [Albuterol Sulfate Hfa] 2 puff INHALATION RT-QID PRN 01/06/22 [History] Calcium Carbonate/Vitamin D3 [Calcium 500-Vit D3 5 Mcg (200 Iu)] 1 tab PO DAILY@169901/06/22 [History] Cholecalciferol [Vitamin D3 (25 Mcg = 1000 Iu)] 50 mcg PO DAILY@169901/06/22 [History] Ipratropium-Albuterol Nebulize [Duoneb 0.5 mg-3 mg/3 ml Soln] 3 ml INHALATION RT-QID 01/06/22 [History] Budesonide-Formot 160-4.5 Mcg [Symbicort 160-4.5 Mcg Inhaler] 2 puff INHALATION RT-BID gm 01/13/22 [Rx] Dicyclomine [Bentyl] 10 mg PO QID 30 Days #120 cap 01/13/22 [Rx] LORazepam [Ativan] 0.5 mg PO Q6H PRN 2 Days #8 tab 01/13/22 [Rx] Pantoprazole [Protonix] 40 mg PO DAILY 30 Days #30 tab 01/13/22 [Rx] Furosemide [Lasix] 20 mg PO DAILY 02/11/22 [History] predniSONE 10 mg PO DAILY #126 tab 02/16/22 [Rx] Follow up Appointment(s)/Referral(s): Shoaib Strauss MD [Primary Care Provider] - 1-2 days Oralia Salguero MD [STAFF PHYSICIAN] - 2 Weeks Discharge Disposition: - Preliminary Cause of Preliminary Cause of : Sepsis/ perforated viscous/peritonitis
== END 2022-02-20 02:00 | disposition expired | DRG 871 ==
LOC: EC 10:08 → 3SCARD 15:15
PROVIDERS: ADMIT Internal Medicine; ATTEND Internal Medicine
DX: A41.9 Sepsis, unspecified organism (principal); E43 Unspecified severe protein-calorie malnutrition; I21.A1 Myocardial infarction type 2; K65.9 Peritonitis, unspecified; K63.1 Perforation of intestine (nontraumatic); K51.90 Ulcerative colitis, unspecified, without complications; E87.1 Hypo-osmolality and hyponatremia; I51.81 Takotsubo syndrome; N17.9 Acute kidney failure, unspecified; Z68.24 Body mass index [BMI] 24.0-24.9, adult; E78.5 Hyperlipidemia, unspecified; E86.0 Dehydration; E86.1 Hypovolemia; F17.210 Nicotine dependence, cigarettes, uncomplicated; F32.A Depression, unspecified; F41.1 Generalized anxiety disorder; I10 Essential (primary) hypertension; M25.511 Pain in right shoulder; R00.0 Tachycardia, unspecified; I25.10 Atherosclerotic heart disease of native coronary artery without angina pectoris; J44.9 Chronic obstructive pulmonary disease, unspecified; I45.81 Long QT syndrome; K21.00 Gastro-esophageal reflux disease with esophagitis, without bleeding; K44.9 Diaphragmatic hernia without obstruction or gangrene; M19.90 Unspecified osteoarthritis, unspecified site; Z51.5 Encounter for palliative care; Z66 Do not resuscitate; Z79.51 Long term (current) use of inhaled steroids; Z79.82 Long term (current) use of aspirin; Z79.899 Other long term (current) drug therapy; Z80.0 Family history of malignant neoplasm of digestive organs; Z86.718 Personal history of other venous thrombosis and embolism; Z90.49 Acquired absence of other specified parts of digestive tract; Z90.710 Acquired absence of both cervix and uterus; Z95.5 Presence of coronary angioplasty implant and graft
CPT/HCPCS: 36415; 43239; 45380; 71045; 71046; 74018; 74176; 80048; 80053; 81003; 82550; 83605; 83690; 83735; 84145; 84484; 85025; 85652; 86140; 87040; 88305; 93005; 93306; 94640; 94760; 96360; 96361; 99285